=== PATIENT | male | born 1960 | race Caucasian/White ===

== ENCOUNTER 2017-01-27 10:47 | Emergency (ER) | payer OTHER ==
[2017-01-27 11:03] VITALS: BP 145/80; PULSE 90; TEMP 98.1; BMI 24.2
--- NOTE | 2017-01-27 11:52 | PDOC ---
History of Present Illness - General Chief Complaint: Injury Stated Complaint: FALL/ LT FOOT PAIN Time Seen by Provider: 01/27/17 11:45 History Source: Patient Exam Limitations: No Limitations - History of Present Illness Initial Comments: 01/27/17 12:01 Pt. is a 56 y/o male with pmh of HTN, seizure disorder, who presents to the ED c /o R ankle pain. Pt. states he was working on a ladder yesterday when the ladder slid. Pt. states he fell approximately 7 feet and landed on his right ankle. Denies head trauma, LOC, seizure activity. He states his ankle hurts the most when bearing weight. Denies numbness, tingling, weakness, fevers, chills, nausea, and vomiting. Past History - Travel Traveled outside of the country in the last 30 days: No Close contact w/someone who was outside of country & ill: No - Past Medical History Allergies/Adverse Reactions: Allergies Allergy/AdvReac Type Severity Reaction Status Date / Time No Known Allergies Allergy Verified 01/27/17 11:00 Home Medications: Ambulatory Orders NK [No Known Home Medication] 01/30/14 HTN: Yes Seizures: Yes - Surgical History Orthopedic Surgery: Yes (Back) - Immunization History Immunization Up to Date: Yes - Psycho/Social/Smoking Cessation Hx Anxiety: No Suicidal Ideation: No Smoking Status: Yes Smoking History: Never smoked Have you smoked in the past 12 months: Yes Number of Cigarettes Smoked Daily: 0 If you are a former smoker, when did you quit?: 10/2012 Information on smoking cessation initiated: No 'Breaking Loose' booklet given: 12/05/12 Hx Alcohol Use: No Drug/Substance Use Hx: No Substance Use Type: Alcohol Hx Substance Use Treatment: No Review of Systems - Review of Systems Constitutional: No: Chills, Fever, Malaise, Weakness HEENTM: No: Blurred Vision, Recent change in vision, Double Vision Musculoskeletal: Yes: Joint Pain (R ankle), Joint Swelling (R ankle). No: Back Pain, Muscle Pain, Muscle Weakness, Neck Pain Neurological: No: Paresthesia, Tingling, Weakness, Unsteady Gait *Physical Exam - Vital Signs Last Vital Signs Temp Pulse Resp BP Pulse Ox 98.1 F 90 16 145/80 99 01/27/17 11:00 01/27/17 11:00 01/27/17 11:00 01/27/17 11:00 01/27/17 11:00 - Physical Exam Comments: 01/27/17 12:06 GENERAL: [The patient is awake, alert, and fully oriented, in no acute distress. ] HEAD: [Normal with no signs of trauma.] EYES: [Pupils equal, round and reactive to light, extraocular movements intact, sclera anicteric, conjunctiva clear.] EXTREMITIES: [Normal range of motion, mild swelling over the R lateral malleolus. Denies TTP of the foot. (-) Zamora test.] NEUROLOGICAL: [Normal speech, normal gait.] PSYCH: [Normal mood, normal affect.] SKIN: [Warm, Dry, normal turgor, no rashes or lesions noted.] Medical Decision Making - Medical Decision Making 01/27/17 12:06 Patient is a 56-year-old male past medical history of HTN, seizures presents with right ankle pain after falling from a ladder. Denies head trauma loss of consciousness. Patient has mild pain with weightbearing. Most likely ankle sprain, however will rule out fracture at this time given the mechanism of fall. 1.Motrin 2.x-ray right ankle foot Reevaluate 01/27/17 13:01 Radiology report: Swelling over the lateral medial eye without evidence of gross fracture. Diagnosis most likely ankle sprain. We'll give Gabriele wrap told to elevate and ice the ankle may take Motrin as needed for pain. Given ortho follow-up. We will discharge home at this time with Gabriele wrap. *DC/Admit/Observation/Transfer Diagnosis at time of Disposition: Ankle sprain Qualifiers: Encounter type: initial encounter Involved ligament of ankle: unspecified ligament Laterality: right Qualified Code(s): S93.401A - Sprain of unspecified ligament of right ankle, initial encounter - Discharge Dispostion Disposition: HOME Condition at time of disposition: Good Admit: No - Referrals Referrals: Omar Curran MD [Primary Care Provider] - John Ayon MD [Staff Physician] - - Patient Instructions Printed Discharge Instructions: DI for Ankle Sprain Additional Instructions: You have an ankle sprain of your R ankle. You were given an GABRIELE wrap for comfort. Wear the wrap for the next week. Elevate your leg when sitting or laying down to prevent swelling. Ice the area 3-4 times a day for 20 minute intervals. Do not put the ice directly over the area. Take ibuprofen 600mg every 6 hours for pain and swelling. Take with food. Follow up with orthopedics on Tuesday if your symptoms are not getting better. Return to the ED if you have worsening pain, fevers ,chills, or any changes in your symptoms. - Post Discharge Activity Work/School Note: Back to Work
[2017-01-27] MEDS ORDERED: ACETAMINOPHEN 325 MG TABLET (FP) PO ONE (11:58)
[2017-01-27] MEDS ORDERED: ACETAMINOPHEN 325 MG TABLET (FP) ONE (11:59)
== END 2017-01-27 13:11 | disposition home or self-care (01) ==
LOC: JERFT 10:47
DX: S93.401A Sprain of unspecified ligament of right ankle, initial encounter (principal); W11.XXXA Fall on and from ladder, initial encounter; Y93.H3 Activity, building and construction; Y92.69 Other specified industrial and construction area as the place of occurrence of the external cause; Y99.0 Civilian activity done for income or pay; I10 Essential (primary) hypertension; Z86.69 Personal history of other diseases of the nervous system and sense organs
CPT/HCPCS: 73610-TC-RT; 73630-TC-RT; 99281-25

== ENCOUNTER 2020-01-24 09:26 | Inpatient (IN) | payer OTHER ==
[2020-01-24 09:38] VITALS: BMI 24.3
--- NOTE | 2020-01-24 09:43 | PDOC ---
History of Present Illness - General Chief Complaint: Weakness Stated Complaint: PAIN Time Seen by Provider: 01/24/20 09:42 - History of Present Illness Initial Comments: 59 YOM h/o alcohol abuse presents with weakness, fatigue, and dizziness of 2 weeks duration. Patient reports that his symptoms have worsened during the previous 2 weeks. Also endorses nausea, occasional vomiting, and persistent diarrhea during this time. He also mentions feeling SOB sometimes. Denies chest pain, fever, chills, or night sweats. Past History - Medical History Allergies/Adverse Reactions: Allergies Allergy/AdvReac Type Severity Reaction Status Date / Time No Known Allergies Allergy Verified 01/24/20 09:35 Home Medications: Ambulatory Orders NK [No Known Home Medication] 01/30/14 COPD: No HTN: Yes Seizures: Yes Other medical history: DENIES ANY HISTORY - Surgical History Orthopedic Surgery: Yes (Back) - Immunization History Immunization Up to Date: Yes - Psycho-Social/Smoking History Smoking Status: Yes Smoking History: Never smoked Have you smoked in the past 12 months: No Number of Cigarettes Smoked Daily: 0 If you are a former smoker, when did you quit?: 10/2012 Information on smoking cessation initiated: No 'Breaking Loose' booklet given: 12/05/12 - Substance Abuse Hx (Audit-C & DAST Scrn) How often the patient has a drink containing alcohol: 2-4 times / month Score: In Men: 4 or > Positive; In Women: 3 or > Positive: 2 Screen Result (Pos requires Nsg. Audit-10AR): Negative In the last yr the pt used illegal drug/Rx for NonMed reason: No Score: Yes response is considered Positive: 0 Screen Result (Positive result requires Nsg. DAST-10): Negative Review of Systems - Review of Systems Constitutional: Yes: See HPI HEENTM: Yes: See HPI Respiratory: Yes: See HPI Cardiac (ROS): Yes: See HPI ABD/GI: Yes: See HPI : Yes: See HPI Musculoskeletal: Yes: See HPI Integumentary: Yes: See HPI Neurological: Yes: See HPI Endocrine: Yes: See HPI Hematologic/Lymphatic: Yes: See HPI *Physical Exam - Vital Signs Last Vital Signs Temp Pulse Resp BP Pulse Ox 97.9 F 96 H 17 94/62 100 01/24/20 09:30 01/24/20 09:30 01/24/20 09:30 01/24/20 09:30 01/24/20 09:30 - Physical Exam General Appearance: Yes: Appropriately Dressed, Apparent Distress HEENT: positive: EOMI, Normal ENT Inspection, Normal Voice, Symmetrical, TMs Normal, Pharynx Normal, Scleral Icterus (R) Neck: positive: Trachea midline, Normal Thyroid Respiratory/Chest: positive: Lungs Clear, Normal Breath Sounds Cardiovascular: positive: Regular Rhythm, Regular Rate, S1, S2 Gastrointestinal/Abdominal: positive: Tender, Other (TTP in RUQ) 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 Patient reports that his symptoms have worsened during the previous 2 weeks. Also endorses nausea, occasional vomiting, and persistent diarrhea during this time. He also mentions feeling SOB sometimes. Denies chest pain, fever, chills, or night sweats. Vitals on arrival wnl. Physical exam reveals juandice of skin and scleral icterus + RUQ ttp. ddx: liver failure, hepatitis, pancreatitis, cholangitis plan: UA, STOOL FOR OCCULT BLOOD, CBC, CMP, CT abdomen, acetominophen and alcohol levels, folic acid, lactulose reassess: patient has Hgb 8.7, AST 161, K+ 3.3, bilirubin in 11s, CT shows fatty changes in liver + hepatomegaly, will admit patient for acute decompensated liver failure. dispo: admit to medicine 01/24/20 15:40 Discharge - Discharge Information Problems reviewed: Yes Clinical Impression/Diagnosis: Cirrhosis of liver Qualifiers: Hepatic cirrhosis type: alcoholic cirrhosis Ascites presence: unspecified Qualified Code(s): K70.30 - Alcoholic cirrhosis of liver without ascites - Follow up/Referral - Patient Discharge Instructions - Post Discharge Activity
--- NOTE | 2020-01-24 10:32 | PDOC ---
Documentation entered by Jose Antonio Yip SCRIBE, acting as scribe for Linda Navarrete MD. Linda Navarrete MD: This documentation has been prepared by the Phi cee Xhesika, SCRIBE, under my direction and personally reviewed by me in its entirety. I confirm that the documentation accurately reflects all work, treatment, procedures, and medical decision making performed by me. Attending Attestation - Resident Resident Name: Harsha Nicholson - ED Attending Attestation I have performed the following: I have examined & evaluated the patient, The case was reviewed & discussed with the resident, I agree w/resident's findings & plan, Exceptions are as noted - HPI HPI: 01/24/20 09:57 The patient is a 56y/o male with pmh of HTN, seizure disorder, and etoh abuse who presents to the ED for 2-3 weeks of generalized weakness, unsteady gait and headaches. Pt reports additional nausea, intermittent vomiting and diarrhea. Pt states he recently saw his doctor, had outpatient lab work but he does not know his results. Pt. also endorses mild RUQ pain. Pt denies any chest pain, SOB. Denies any URI symptoms. Allergies:NKDA PCP: Omar Culp - Physicial Exam PE: 01/24/20 10:28 General: non-toxic appearing HEENT: scleral icterus, no nystagmus Abdomen: distended, non-tender, +fluid wave, no rebound, no guarding Neuro: Aox3, moving all extremities,+mild asterixis Skin: +jaundice - Medical Decision Making 01/24/20 10:29 59 yo M here with concern for deccompensated alcoholic liver cirrhosis, pt reported mild RUQ abdominal pain but non-tender on exam, lower suspicion for SBP however as patient reports pain will cover with CTX. Also possible HCC. Plan: -labs -urine -cxr -CT a/p -CTX -admit This clinical encounter is taking place during a federal and state health care emergency attributable to the novel [place] Virus pandemic. The [place] of the Department of Health and Human Services has declared, pursuant to the Public Health Service Act 319F-3 (42 U.S.C. 247d-6d), that a covered persons activities related to medical countermeasures against COVID-19 will be immune from liability under Federal and State law. Discharge - Discharge Information Problems reviewed: Yes Clinical Impression/Diagnosis: Cirrhosis of liver Qualifiers: Hepatic cirrhosis type: alcoholic cirrhosis Ascites presence: unspecified Qualified Code(s): K70.30 - Alcoholic cirrhosis of liver without ascites - Follow up/Referral - Patient Discharge Instructions - Post Discharge Activity
[2020-01-24] MEDS ORDERED: CEFTRIAXONE 1 GM/50 ML BAG ONE (10:34)
[2020-01-24 10:41] LABS: BASO % 0.6 % (0-2.0); EOS % 0.9 % (0-4.5); HEMATOCRIT 25.3 % (35.4-49); HEMOGLOBIN 8.7 GM/dL (11.7-16.9); LYMPH % 13.5 % (8-40); MCH 37.5 pg (25.7-33.7); MCHC 34.3 g/dl (32.0-35.9); MEAN CELL VOLUME 109.3 fl (80-96); MEAN PLT VOLUME 7.4 fl (7.5-11.1); MONO % 9.9 % (3.8-10.2); NEUT % 75.1 % (42.8-82.8); PLATELET COUNT 199 K/MM3 (134-434); RBC 2.32 M/mm3 (4.00-5.60); RDW 14.7 % (11.9-15.9); WHITE BLOOD COUNT 11.1 K/mm3 (4.0-10.0)
[2020-01-24 10:49] LABS: INR 2.24 (0.83-1.09); PROTHROMBIN TIME (PATIENT) 26.7 SEC (9.7-13.0)
[2020-01-24 10:52] LABS: ACTIVATED PTT 44.3 SECONDS (25.2-36.5)
[2020-01-24] MEDS ORDERED: THIAMINE HCL 100 MG TABLET (FP) PO ONE (11:09)
[2020-01-24] MEDS ORDERED: FOLIC ACID 1 MG TABLET (FP) PO ONE (11:09)
[2020-01-24 11:21] LABS: ALBUMIN 1.2 g/dl (3.4-5.0); BILIRUBIN,TOTAL 11.3 mg/dL (0.2-1); CALCIUM 7.6 mg/dL (8.5-10.1); CREATININE 0.8 mg/dL (0.55-1.3); POTASSIUM 3.3 mmol/L (3.5-5.1)
[2020-01-24 11:22] LABS: ANISOCYTOSIS 2+; MACROCYTOSIS 2+; PLATELET ESTIMATE NORMAL
[2020-01-24] MEDS ORDERED: THIAMINE HCL 100 MG TABLET (FP) ONE (11:47)
[2020-01-24] MEDS ORDERED: FOLIC ACID 1 MG TABLET (FP) ONE (11:47)
[2020-01-24 11:56] LABS: BLOOD UREA NITROGEN 2.9 mg/dL (7-18)
--- NOTE | 2020-01-24 12:35 | EKG ---
Test Reason : Blood Pressure : / mmHG Vent. Rate : 085 BPM Atrial Rate : 085 BPM P-R Int : 186 ms QRS Dur : 096 ms QT Int : 396 ms P-R-T Axes : 068 021 032 degrees QTc Int : 471 ms NORMAL SINUS RHYTHM ABNORMAL ECG WHEN COMPARED WITH ECG OF 05-DEC-2012 11:33, ST NOW DEPRESSED IN ANTERIOR LEADS T WAVE INVERSION NOW EVIDENT IN ANTERIOR LEADS Confirmed by STEPHANIE YOON, CHARLES ([id number]) on 01/24/2020 12:35:08 PM Referred By: Confirmed By:CHARLES BROWN MD
[2020-01-24] MEDS ORDERED: PANTOPRAZOLE SODIUM 40 MG VIAL IVPUSH ONE (14:20)
[2020-01-24] MEDS ORDERED: LACTULOSE 20 GM/30 ML UDC (FOR ORAL USE ONLY) PO ONE (14:20)
[2020-01-24] MEDS ORDERED: LACTULOSE 20 GM/30 ML UDC (FOR ORAL USE ONLY) ONE (15:17)
[2020-01-24] MEDS ORDERED: KCL 10 MEQ IVPB 10 MEQ/100 ML INFUS.BAG IVPB ONE ×3 (15:17→19:51)
[2020-01-24] MEDS ORDERED: PANTOPRAZOLE SODIUM 40 MG/100 ML BAG IVPB ONE (15:17)
[2020-01-24] MEDS: KCL 10 MEQ IVPB 10 MEQ/100 ML INFUS.BAG IVPB SCH ×4 (15:54→23:19)
[2020-01-24] MEDS ORDERED: PHYTONADIONE 10 MG/1 ML AMP SQ ONE (17:57)
[2020-01-24] MEDS ORDERED: PHYTONADIONE 10 MG/1 ML AMP ONE (18:18)
--- NOTE | 2020-01-24 18:27 | HP ---
CHIEF COMPLAINT:weakness/ fatigue PCP:Dr Curran HISTORY OF PRESENT ILLNESS: 59 YOM h/o alcohol abuse, HTN, siezure (not on meds) presents with weakness, fatigue, and dizziness of 2 weeks duration. pateint states he has been having vomiting some fatigued and some nausea/diarrhea ; stats that he hasnt had much of an appetite as well - he has not followed up with a doctor in many years ; drinks around 2-4 drinsk per month (would not go into further detail) ER course was notable for: (1)afebrile; MAP 72 hr 92 on RA 100% (2)wbc 11.1 ; Hgb 8.7 NA 133 K 3.3 INR 2.24 PTT 44 Cr 0.8 ALT 161 Alk phos 319 ammonia 44 (3)ab pelvis CT no ascites hepatomegaly fatty infilration US ; no gall stones Recent Travel: denies PAST MEDICAL HISTORY: see above PAST SURGICAL HISTORY: Social History: Smoking:denies Alcohol:2-4 drinks per month (vodka) Drugs: denies Allergies No Known Allergies Allergy (Verified 01/24/20 09:35) HOME MEDICATIONS: Home Medications Medication Instructions Recorded NK [No Known Home Medication] 01/30/14 REVIEW OF SYSTEMS CONSTITUTIONAL: Present: malaise, loss of appetie Absent: fever, chills, diaphoresis, generalized weakness, malaise, loss of appetite, weight change HEENT: Absent: rhinorrhea, nasal congestion, throat pain, throat swelling, difficulty swallowing, mouth swelling, ear pain, eye pain, visual changes CARDIOVASCULAR: Absent: chest pain, syncope, palpitations, irregular heart rate, lightheadedness, peripheral edema RESPIRATORY: Absent: cough, shortness of breath, dyspnea with exertion, orthopnea, wheezing, stridor, hemoptysis GASTROINTESTINAL: present: abdominal pain Absent: abdominal pain, abdominal distension, nausea, vomiting, diarrhea, constipation, melena, hematochezia GENITOURINARY: Absent: dysuria, frequency, urgency, hesitancy, hematuria, flank pain, genital pain MUSCULOSKELETAL: Absent: myalgia, arthralgia, joint swelling, back pain, neck pain SKIN: Absent: rash, itching, pallor HEMATOLOGIC/IMMUNOLOGIC: Absent: easy bleeding, easy bruising, lymphadenopathy, frequent infections ENDOCRINE: Absent: unexplained weight gain, unexplained weight loss, heat intolerance, cold intolerance NEUROLOGIC: Absent: headache, focal weakness or paresthesias, dizziness, unsteady gait, seizure, mental status changes, bladder or bowel incontinence PSYCHIATRIC: Absent: anxiety, depression, suicidal or homicidal ideation, hallucinations. PHYSICAL EXAMINATION Vital Signs - 24 hr 01/24/20 01/24/20 09:30 14:27 Temperature 97.9 F Pulse Rate 96 H Respiratory 17 Rate Blood Pressure 94/62 O2 Sat by Pulse 100 98 Oximetry (%) GENERAL: Awake, alert, and fully oriented, in no acute distress.. EYES: PEERLA: EOMI no sclerla icteus NECK:no JVD no lymphadenpoathy LUNGS:CTA B.l no rales, rhonchi or wheezing HEART: Regular rate and rhythm, normal S1 and S2 without murmur, rub or gallop. ABDOMEN: Soft, distended; tympanic upon percussions MUSCULOSKELETAL: Normal range of motion at all joints. No bony deformities or tenderness. No CVA tenderness. EXTREMITIES ; wamr; well-perfysed no clubbing/cyanosis or edema NEUROLOGICAL: Cranial nerves II-XII intact. Normal speech. Normal gait. PSYCHIATRIC: Cooperative. Good eye contact. Appropriate mood and affect. SKIN: Warm, dry, normal turgor, no rashes or lesions noted, normal capillary refill. Laboratory Results - last 24 hr 01/24/20 01/24/20 01/24/20 10:00 10:00 10:00 WBC 11.1 H RBC 2.32 L Hgb 8.7 L Hct 25.3 L D MCV 109.3 H MCH 37.5 H D MCHC 34.3 RDW 14.7 D Plt Count 199 D MPV 7.4 L Absolute Neuts (auto) 8.3 H Neutrophils % 75.1 Lymphocytes % 13.5 Monocytes % 9.9 Eosinophils % 0.9 D Basophils % 0.6 Nucleated RBC % 0 Hypochromia 0 Platelet Estimate Normal Polychromasia 0 Poikilocytosis 0 Anisocytosis 2+ Microcytosis 0 Macrocytosis 2+ PT with INR 26.70 H INR 2.24 H PTT (Actin FS) 44.3 H Sodium 133 L Potassium 3.3 L Chloride 97 L Carbon Dioxide 28 Anion Gap 9 BUN 2.9 L* Creatinine 0.8 Est GFR (CKD-EPI)AfAm 114.93 Est GFR (CKD-EPI)NonAf 99.16 Random Glucose 93 Calcium 7.6 L Total Bilirubin 11.3 H AST 161 H ALT 34 Alkaline Phosphatase 319 H Ammonia Creatine Kinase Troponin I Total Protein 10.0 H Albumin 1.2 L Lipase 101 Blood Type Antibody Screen 01/24/20 01/24/20 01/24/20 10:00 10:00 10:00 WBC RBC Hgb Hct MCV MCH MCHC RDW Plt Count MPV Absolute Neuts (auto) Neutrophils % Lymphocytes % Monocytes % Eosinophils % Basophils % Nucleated RBC % Hypochromia Platelet Estimate Polychromasia Poikilocytosis Anisocytosis Microcytosis Macrocytosis PT with INR INR PTT (Actin FS) Sodium Potassium Chloride Carbon Dioxide Anion Gap BUN Creatinine Est GFR (CKD-EPI)AfAm Est GFR (CKD-EPI)NonAf Random Glucose Calcium Total Bilirubin AST ALT Alkaline Phosphatase Ammonia 40.70 H Creatine Kinase 26 Troponin I < 0.02 Total Protein Albumin Lipase Blood Type A POSITIVE Antibody Screen Negative ASSESSMENT/PLAN: 59 YOM h/o alcohol abuse, HTN, siezure (not on meds) presents with weakness, fatigue, and dizziness of 2 weeks duration. pateint states he has been having vomiting some fatigued and some nausea/diarrhea found to be in decompensated liver failure #Decompensated liver failure MELD score 28; MDF 71 -reieced cefrtriaxone for SBP ppx -imaging noted -moniotr LFTS -no asictes seen -given patients critical condition [facility] followed by hepatology service #HTN currently normotensive not on meds Family Medical History Family History: Denies Problem List - Problem (1) Cirrhosis of liver Code(s): K74.60 - UNSPECIFIED CIRRHOSIS OF LIVER Qualifiers: Hepatic cirrhosis type: alcoholic cirrhosis Ascites presence: unspecified Qualified Code(s): K70.30 - Alcoholic cirrhosis of liver without ascites Visit type - Emergency Visit Emergency Visit: Yes ED Registration Date: 01/24/20 Care time: The patient presented to the Emergency Department on the above date and was hospitalized for further evaluation of their emergent condition. - New Patient This patient is new to me today: Yes Date on this admission: 01/24/20 - Critical Care Critical Care patient: No ATTENDING PHYSICIAN STATEMENT I saw and evaluated the patient. I reviewed the resident's note and discussed the case with the resident. I agree with the resident's findings and plan as documented. SUBJECTIVE: OBJECTIVE: ASSESSMENT AND PLAN:
--- NOTE | 2020-01-24 18:34 | DS ---
Physical Exam: SUBJECTIVE: Patient seen and examined OBJECTIVE: Vital Signs Period Temp Pulse Resp BP Sys/Franco Pulse Ox Last 24 Hr 97.9 F 96 17 94/62 98-100 PHYSICAL EXAM GENERAL: The patient is awake, alert, and fully oriented, in no acute distress. HEAD: Normal with no signs of trauma. EYES: PERRL, extraocular movements intact, sclera anicteric, conjunctiva clear. ENT: Ears normal, nares patent, oropharynx clear without exudates, moist mucous membranes. NECK: Trachea midline, full range of motion, supple. LUNGS: Breath sounds equal, clear to auscultation bilaterally, no wheezes, no crackles, no accessory muscle use. HEART: Regular rate and rhythm, S1, S2 without murmur, rub or gallop. ABDOMEN: Soft, nontender, nondistended, normoactive bowel sounds, no guarding, no rebound, no hepatosplenomegaly, no masses. EXTREMITIES: 2+ pulses, warm, well-perfused, no edema. NEUROLOGICAL: Cranial nerves II through XII grossly intact. Normal speech, gait not observed. PSYCH: Normal mood, normal affect. SKIN: Warm, dry, normal turgor, no rashes or lesions noted. LABS Laboratory Results - last 24 hr 01/24/20 01/24/20 01/24/20 10:00 10:00 10:00 WBC 11.1 H RBC 2.32 L Hgb 8.7 L Hct 25.3 L D MCV 109.3 H MCH 37.5 H D MCHC 34.3 RDW 14.7 D Plt Count 199 D MPV 7.4 L Absolute Neuts (auto) 8.3 H Neutrophils % 75.1 Lymphocytes % 13.5 Monocytes % 9.9 Eosinophils % 0.9 D Basophils % 0.6 Nucleated RBC % 0 Hypochromia 0 Platelet Estimate Normal Polychromasia 0 Poikilocytosis 0 Anisocytosis 2+ Microcytosis 0 Macrocytosis 2+ PT with INR 26.70 H INR 2.24 H PTT (Actin FS) 44.3 H Sodium 133 L Potassium 3.3 L Chloride 97 L Carbon Dioxide 28 Anion Gap 9 BUN 2.9 L* Creatinine 0.8 Est GFR (CKD-EPI)AfAm 114.93 Est GFR (CKD-EPI)NonAf 99.16 Random Glucose 93 Calcium 7.6 L Total Bilirubin 11.3 H AST 161 H ALT 34 Alkaline Phosphatase 319 H Ammonia Creatine Kinase Troponin I Total Protein 10.0 H Albumin 1.2 L Lipase 101 Blood Type Antibody Screen 01/24/20 01/24/20 01/24/20 10:00 10:00 10:00 WBC RBC Hgb Hct MCV MCH MCHC RDW Plt Count MPV Absolute Neuts (auto) Neutrophils % Lymphocytes % Monocytes % Eosinophils % Basophils % Nucleated RBC % Hypochromia Platelet Estimate Polychromasia Poikilocytosis Anisocytosis Microcytosis Macrocytosis PT with INR INR PTT (Actin FS) Sodium Potassium Chloride Carbon Dioxide Anion Gap BUN Creatinine Est GFR (CKD-EPI)AfAm Est GFR (CKD-EPI)NonAf Random Glucose Calcium Total Bilirubin AST ALT Alkaline Phosphatase Ammonia 40.70 H Creatine Kinase 26 Troponin I < 0.02 Total Protein Albumin Lipase Blood Type A POSITIVE Antibody Screen Negative ab pelvis CT no ascites hepatomegaly fatty infilration US ; no gall stones; fatty liver HOSPITAL COURSE: Date of Admission:01/24/20 59 YOM h/o alcohol abuse, HTN, siezure (not on meds) presents with weakness, fatigue, and dizziness of 2 weeks duration. pateint states he has been having vomiting some fatigued and some nausea/diarrhea found to be in decompensated liver failure #Decompensated liver failure MELD score 28; MDF 71 -reieced cefrtriaxone for SBP ppx -imaging noted -moniotr LFTS -no asictes seen -given patients critical condition to be transferred to [facility] to be followed by hepatology service #HTN currently normotensive not on meds Date of Discharge: 01/24/20 Minutes to complete discharge: 35 Discharge Summary Problems reviewed: Yes Reason For Visit: LIVER FAILURE Current Active Problems Cirrhosis of liver (Acute) - Instructions Referrals: Omar Curran MD [Primary Care Provider] - - Home Medications Comprehensive Discharge Medication List: Ambulatory Orders NK [No Known Home Medication] 01/30/14 Problem List - Problems (1) Cirrhosis of liver Code(s): K74.60 - UNSPECIFIED CIRRHOSIS OF LIVER Qualifiers: Hepatic cirrhosis type: alcoholic cirrhosis Ascites presence: unspecified Qualified Code(s): K70.30 - Alcoholic cirrhosis of liver without ascites This patient is new to me today: Yes Date on this admission: 01/24/20 Emergency Visit: Yes ED Registration Date: 01/24/20 Care time: The patient presented to the Emergency Department on the above date and was hospitalized for further evaluation of their emergent condition. Critical Care patient: No - Discharge Referral Referred to [facility] No ATTENDING PHYSICIAN STATEMENT I saw and evaluated the patient. I reviewed the resident's note and discussed the case with the resident. I agree with the resident's findings and plan as documented. SUBJECTIVE: OBJECTIVE: ASSESSMENT AND PLAN:
--- NOTE | 2020-01-24 19:13 | CON.GI ---
Consult Consult Specialty:: GI Referred by:: Hospitalist Service Reason for Consultation:: Abnormal liver chemistries - History of Present Illness Chief Complaint: "I was dizzy" History of Present Illness: 59M who is a poor historian. States that he was admnitted because he has been dizzy over the last couple of weeks. Labs revealed a macrocytic anemia, bilirubin of 10, INR of 2.24. Admits to drinking 2 beers and 2 glasses of wine daily and a 6 pack + of beer per day on the weekends. He has been drinking like this for quite some time. CT scan revealed fatty liver. US revealed fatty liver, hepatomegaly nod non dilated biliary tract. he denies OTC medication use or herbal supplements. He denies IVDU. No h/o IVDU. No family h/o liver disease. No known exposures to viral hepatitides. - History Source History Provided By: Patient, Medical Record Limitations to Obtaining History: Poor Historian - Past Medical History Additional Medical History: Denies - Past Surgical History Additional Surgical History: Denies - Alcohol/Substance Use Hx Alcohol Use: No History of Substance Use: reports: None - Smoking History Smoking history: Never smoked Have you smoked in the past 12 months: No Aproximately how many cigarettes per day: 0 If you are a former smoker, when did you quit?: 10/2012 - Social History Usual Living Arrangement: Alone ADL: Independent History of Recent Travel: No Home Medications - Allergies Allergies/Adverse Reactions: Allergies Allergy/AdvReac Type Severity Reaction Status Date / Time No Known Allergies Allergy Verified 01/24/20 09:35 - Home Medications Home Medications: Ambulatory Orders NK [No Known Home Medication] 01/30/14 Family Medical History Other Family History: Father: : "Cancer". Mother: : s/p fall @ . No family history of colon cancer, liver disease. 1 daughter, healthy Review of Systems - Review of Systems Constitutional: reports: Malaise. denies: Chills Cardiovascular: denies: Chest Pain Respiratory: reports: SOB Gastrointestinal: reports: Bloating. denies: Abdominal Pain, Diarrhea, Indigestion, Nausea, Rectal Bleeding, Vomiting, Vomiting Blood Physical Exam-GI Vital Signs: Vital Signs Temperature 97.9 F 01/24/20 18:41 Pulse Rate 97 H 01/24/20 18:41 Respiratory Rate 18 01/24/20 18:41 Blood Pressure 98/68 01/24/20 18:41 O2 Sat by Pulse Oximetry (%) 96 01/24/20 18:41 Constitutional: Yes: Calm Eyes: Yes: Sclera Icterus HENT: Yes: Other (spider angiomata bilateral cheeks) Neck: Yes: Supple Cardiovascular: Yes: Regular Rate and Rhythm. No: Murmur Respiratory: Yes: CTA Bilaterally Gastrointestinal Inspection: No: Distention ...Auscultate: Yes: Normoactive Bowel Sounds ...Palpate: Yes: Hepatomegaly, Soft. No: Tenderness ...Percussion: No: Tympanitic Extremities: Yes: Other (+ clubbing of fingers b/l) Edema: No (No LE edema) Neurological: Yes: Alert, Oriented. No: Asterixis Labs: CBC, BMP 01/24/20 10:00 01/24/20 10:00 INR, PTT INR 2.24 (0.83-1.09) H 01/24/20 10:00 Hepatic Panel Total Bilirubin 11.3 mg/dL (0.2-1) H 01/24/20 10:00 AST 161 U/L (15-37) H 01/24/20 10:00 ALT 34 U/L (13-61) 01/24/20 10:00 Alkaline Phosphatase 319 U/L (45-117) H 01/24/20 10:00 Albumin 1.2 g/dl (3.4-5.0) L 01/24/20 10:00 Imaging - Results Cat Scan: Report Reviewed, Image Reviewed Ultrasound: Report Reviewed Problem List - Problems (1) Alcoholic hepatitis without ascites Assessment/Plan: +/- underlying cirrhosis High Hepatitis Discriminant Funtion Check hepatitis A/B/C serologies Avoid hepatotoxic agents If no improvement, may benefit from initiation of prednisolone therapy Advised the need for complete alcohol cessation Medical attending has requested a transfer to a liver center ([facility]). Further work -up and treatment will be performed there Code(s): K70.10 - ALCOHOLIC HEPATITIS WITHOUT ASCITES
--- NOTE | 2020-01-24 23:28 | PN ---
Teaching Attending Note Name of Resident: Marlys La ATTENDING PHYSICIAN STATEMENT I saw and evaluated the patient. I reviewed the resident's note and discussed the case with the resident. I agree with the resident's findings and plan as documented. SUBJECTIVE: Patient seen and examined at bedside, endorses several years lost to follow up w/ PCP, h/o Etoh abuse with newly found liver cirrhosis and liver failure requiring transfer to tertiary care center for further management of acute liver failure. OBJECTIVE: GA AAOx2, intermittingly confused, cachectic HEENT scleral icterus present, nystagmus present, neck supple, dry MM, tongue tremors+ Chest poor inspiratory effort, decreased BS at bases CVS s1, S2+, RRR ABd mildly distended, no appreciable fluid wave/shifting dullness, Spider angiomata present Ext no LE edema, no calf tenderness Vital Signs (72 hours) 01/24/20 01/24/20 01/24/20 09:30 14:27 18:41 Temperature 97.9 F 97.9 F Pulse Rate 96 H 97 H Respiratory 17 18 Rate Blood Pressure 94/62 98/68 O2 Sat by Pulse 100 98 96 Oximetry (%) Laboratory Results - last 24 hr 01/24/20 01/24/20 01/24/20 10:00 10:00 10:00 WBC 11.1 H RBC 2.32 L Hgb 8.7 L Hct 25.3 L D MCV 109.3 H MCH 37.5 H D MCHC 34.3 RDW 14.7 D Plt Count 199 D MPV 7.4 L Absolute Neuts (auto) 8.3 H Neutrophils % 75.1 Lymphocytes % 13.5 Monocytes % 9.9 Eosinophils % 0.9 D Basophils % 0.6 Nucleated RBC % 0 Hypochromia 0 Platelet Estimate Normal Polychromasia 0 Poikilocytosis 0 Anisocytosis 2+ Microcytosis 0 Macrocytosis 2+ PT with INR 26.70 H INR 2.24 H PTT (Actin FS) 44.3 H Sodium 133 L Potassium 3.3 L Chloride 97 L Carbon Dioxide 28 Anion Gap 9 BUN 2.9 L* Creatinine 0.8 Est GFR (CKD-EPI)AfAm 114.93 Est GFR (CKD-EPI)NonAf 99.16 Random Glucose 93 Calcium 7.6 L Total Bilirubin 11.3 H AST 161 H ALT 34 Alkaline Phosphatase 319 H Ammonia Creatine Kinase Troponin I Total Protein 10.0 H Albumin 1.2 L Lipase 101 Blood Type Antibody Screen 01/24/20 01/24/20 01/24/20 10:00 10:00 10:00 WBC RBC Hgb Hct MCV MCH MCHC RDW Plt Count MPV Absolute Neuts (auto) Neutrophils % Lymphocytes % Monocytes % Eosinophils % Basophils % Nucleated RBC % Hypochromia Platelet Estimate Polychromasia Poikilocytosis Anisocytosis Microcytosis Macrocytosis PT with INR INR PTT (Actin FS) Sodium Potassium Chloride Carbon Dioxide Anion Gap BUN Creatinine Est GFR (CKD-EPI)AfAm Est GFR (CKD-EPI)NonAf Random Glucose Calcium Total Bilirubin AST ALT Alkaline Phosphatase Ammonia 40.70 H Creatine Kinase 26 Troponin I < 0.02 Total Protein Albumin Lipase Blood Type A POSITIVE Antibody Screen Negative Home Medications Medication Instructions Recorded NK [No Known Home Medication] 01/30/14 Current Medications Generic Name Dose Route Start Last Admin Trade Name Freq PRN Reason Stop Dose Admin Thiamine HCl 200 mg 01/25/20 10:00 Vitamin B1 - PO DAILY GUERDA ASSESSMENT AND PLAN: 59 M Decompensated liver failure H/o etoh abuse Transaminitis Hyperammonia AMS Deconditioned Macrocytic anemia PLan: Thaimine/FA/B12 Trend LFTs/coags Supplement PPI Lactulose 1-2 doses either PO/IL for encephalopathy Supplement KCl 10meq 3-4 bags GI recommending transfer to tertiary care center
[2020-01-25 06:35] LABS: COCAINE, UR NEGATIVE ng/ml (CUTOFF=300); OPIATES, URI NEGATIVE ng/ml (CUTOFF=300); PHENCYCLIDINE,URINE NEGATIVE ng/ml (CUTOFF=25); URINE BARBITURATES NEGATIVE ng/ml (CUTOFF=200)
[2020-01-25 06:38] LABS: METHADONE, UR NEGATIVE ng/ml (CUTOFF=300); URINE AMPHETAMINES NEGATIVE ng/ml (CUTOFF=500); URINE BENZODIAZEPINES NEGATIVE ng/ml (CUTOFF=200)
[2020-01-25 07:13] LABS: EPI CELLS 3 /uL (0-25.1); HYALINE CASTS 1 /uL (0-3.1); URINE APPEARANCE CLOUDY; URINE BILIRUBIN 3+ (NEGATIVE); URINE COLOR DK YELLOW; URINE GLUCOSE (UA) NEGATIVE (NEGATIVE); URINE KETONE TRACE (NEGATIVE); URINE LEUK ESTERASE TRACE (NEGATIVE); URINE NITRITE POSITIVE (NEGATIVE); URINE PROTEIN TRACE (NEGATIVE); URINE RBC 19 /uL (0-23.9); URINE WBC 8 /uL (0-25.8)
[2020-01-25 07:25] LABS: URINE BACTERIA 315 /uL (0-1359); URINE CRYSTALS NON SEEN /hpf
--- NOTE | 2020-01-25 07:31 | PN ---
Physical Exam: SUBJECTIVE: Patient seen and examined on stretcher in ED. Last drink 5 days ago. Denies feeling anxious, sweats, chills. Has had buttock abscesses for years, they drain on their own, has not sought medical care for several years due to no insurance. OBJECTIVE: Vital Signs Period Temp Pulse Resp BP Sys/Franco Pulse Ox Last 24 Hr 97.9 F-98.1 F 94-97 16-18 94-104/59-68 95-100 GENERAL: The patient is awake, alert, and fully oriented, in no acute distress. HEAD: Normal with no signs of trauma. EYES: Icteric sclera SKIN: Jaundiced LUNGS: Breath sounds equal, clear to auscultation HEART: Regular rate and rhythm, S1, S2 ABDOMEN: Distended, tympanic, +guarding RUQ EXTREMITIES: 2+ pulses, warm, well-perfused, no edema. NEUROLOGICAL: Cranial nerves II through XII grossly intact. Normal speech, gait not observed. BUTTOCKS: multiple lesions that appear to be healed abscesses in various stages; multiple fistulas, one with serosanguinous drainage, no pus Laboratory Results - last 24 hr 01/24/20 01/24/20 01/24/20 10:00 10:00 10:00 WBC 11.1 H RBC 2.32 L Hgb 8.7 L Hct 25.3 L D MCV 109.3 H MCH 37.5 H D MCHC 34.3 RDW 14.7 D Plt Count 199 D MPV 7.4 L Absolute Neuts (auto) 8.3 H Neutrophils % 75.1 Lymphocytes % 13.5 Monocytes % 9.9 Eosinophils % 0.9 D Basophils % 0.6 Nucleated RBC % 0 Hypochromia 0 Platelet Estimate Normal Polychromasia 0 Poikilocytosis 0 Anisocytosis 2+ Microcytosis 0 Macrocytosis 2+ PT with INR 26.70 H INR 2.24 H PTT (Actin FS) 44.3 H Sodium 133 L Potassium 3.3 L Chloride 97 L Carbon Dioxide 28 Anion Gap 9 BUN 2.9 L* Creatinine 0.8 Est GFR (CKD-EPI)AfAm 114.93 Est GFR (CKD-EPI)NonAf 99.16 Random Glucose 93 Calcium 7.6 L Total Bilirubin 11.3 H AST 161 H ALT 34 Alkaline Phosphatase 319 H Ammonia Creatine Kinase Troponin I Total Protein 10.0 H Albumin 1.2 L Lipase 101 Vitamin B12 Serum Folate Urine Color Urine Appearance Urine pH Ur Specific Eads Urine Protein Urine Glucose (UA) Urine Ketones Urine Blood Urine Nitrite Urine Bilirubin Urine Urobilinogen Ur Leukocyte Esterase Urine WBC (Auto) Urine RBC (Auto) Urine Casts (Auto) U Epithel Cells (Auto) Urine Crystals (Auto) Urine Bacteria (Auto) Opiates Screen Methadone Screen Acetaminophen Barbiturate Screen Phencyclidine Screen Ur Amphetamines Screen MDMA (Ecstasy) Screen Benzodiazepines Screen Cocaine Screen U Marijuana (THC) Screen Blood Type Antibody Screen 01/24/20 01/24/20 01/24/20 10:00 10:00 10:00 WBC RBC Hgb Hct MCV MCH MCHC RDW Plt Count MPV Absolute Neuts (auto) Neutrophils % Lymphocytes % Monocytes % Eosinophils % Basophils % Nucleated RBC % Hypochromia Platelet Estimate Polychromasia Poikilocytosis Anisocytosis Microcytosis Macrocytosis PT with INR INR PTT (Actin FS) Sodium Potassium Chloride Carbon Dioxide Anion Gap BUN Creatinine Est GFR (CKD-EPI)AfAm Est GFR (CKD-EPI)NonAf Random Glucose Calcium Total Bilirubin AST ALT Alkaline Phosphatase Ammonia 40.70 H Creatine Kinase 26 Troponin I < 0.02 Total Protein Albumin Lipase Vitamin B12 4208 H Serum Folate 5 Urine Color Urine Appearance Urine pH Ur Specific Eads Urine Protein Urine Glucose (UA) Urine Ketones Urine Blood Urine Nitrite Urine Bilirubin Urine Urobilinogen Ur Leukocyte Esterase Urine WBC (Auto) Urine RBC (Auto) Urine Casts (Auto) U Epithel Cells (Auto) Urine Crystals (Auto) Urine Bacteria (Auto) Opiates Screen Methadone Screen Acetaminophen Barbiturate Screen Phencyclidine Screen Ur Amphetamines Screen MDMA (Ecstasy) Screen Benzodiazepines Screen Cocaine Screen U Marijuana (THC) Screen Blood Type A POSITIVE Antibody Screen Negative 01/24/20 01/25/20 01/25/20 10:15 05:00 05:00 WBC RBC Hgb Hct MCV MCH MCHC RDW Plt Count MPV Absolute Neuts (auto) Neutrophils % Lymphocytes % Monocytes % Eosinophils % Basophils % Nucleated RBC % Hypochromia Platelet Estimate Polychromasia Poikilocytosis Anisocytosis Microcytosis Macrocytosis PT with INR INR PTT (Actin FS) Sodium Potassium Chloride Carbon Dioxide Anion Gap BUN Creatinine Est GFR (CKD-EPI)AfAm Est GFR (CKD-EPI)NonAf Random Glucose Calcium Total Bilirubin AST ALT Alkaline Phosphatase Ammonia Creatine Kinase Troponin I Total Protein Albumin Lipase Vitamin B12 Serum Folate Urine Color Dk yellow Urine Appearance Cloudy Urine pH 7.0 Ur Specific Eads 1.037 H Urine Protein Trace Urine Glucose (UA) Negative Urine Ketones Trace H Urine Blood Negative Urine Nitrite Positive H Urine Bilirubin 3+ H Urine Urobilinogen 2.0 Ur Leukocyte Esterase Trace Urine WBC (Auto) 8 Urine RBC (Auto) 19 Urine Casts (Auto) 1 U Epithel Cells (Auto) 3 Urine Crystals (Auto) Non seen Urine Bacteria (Auto) 315 Opiates Screen Negative Methadone Screen Negative Acetaminophen < 2.0 Barbiturate Screen Negative Phencyclidine Screen Negative Ur Amphetamines Screen Negative MDMA (Ecstasy) Screen Negative Benzodiazepines Screen Negative Cocaine Screen Negative U Marijuana (THC) Screen Negative Blood Type Antibody Screen Active Medications Generic Name Dose Route Start Last Admin Trade Name Freq PRN Reason Stop Dose Admin Thiamine HCl 200 mg 01/25/20 10:00 Vitamin B1 - PO DAILY GUERDA Assessment & Plan 59 year-old male with a PMH significant for HTN, ETOH abuse, and seizure disorder not on meds, admitted for decompensated liver injury. Decompensated liver injury --baseline liver function unknown, has not sought care in several years --MELD score 28; MDF 71 --has NOT been accepted to [facility] for transfer to hepatobiliary service; per Dr. Turner, Metal Finish Inspector, still under advisement; last spoke with him Tuesday afternoon, he was going to consult with Dr. Romero, head of service; need to call transfer center on Tuesday and speak with Dr. Turner or is surrogate --seen and evaluated by GI Dr. Bañuelos: start lactulose Chronic alcohol abuse --no signs of withdrawal at present --PRN ativan Buttock abscesses --Vanc x 1g --ID consult --CT pelvis pending --depending on results of CT, surgical consult Visit type - Emergency Visit Emergency Visit: Yes ED Registration Date: 01/24/20 Care time: The patient presented to the Emergency Department on the above date and was hospitalized for further evaluation of their emergent condition. - New Patient This patient is new to me today: Yes Date on this admission: 01/26/20 - Critical Care Critical Care patient: Yes Total Critical Care Time (in minutes): 60 Critical Care Statement: The care of this patient involved high complexity decision making to prevent further life threatening deterioration of the patient's condition and/or to evaluate & treat vital organ system(s) failure or risk of failure.
[2020-01-25 08:31] LABS: INR 2.57 (0.83-1.09); PROTHROMBIN TIME (PATIENT) 30.6 SEC (9.7-13.0)
[2020-01-25 09:35] LABS: BILIRUBIN,DIRECT 8.3 mg/dL (0.0-0.2); BILIRUBIN,TOTAL 10.4 mg/dL (0.2-1); BLOOD UREA NITROGEN 3.2 mg/dL (7-18); CALCIUM 7.5 mg/dL (8.5-10.1); CREATININE 0.8 mg/dL (0.55-1.3); MAGNESIUM 2.1 mg/dL (1.8-2.4); PHOSPHOROUS 2.3 mg/dL (2.5-4.9); POTASSIUM 3.5 mmol/L (3.5-5.1); TOT PROT 8.4 g/dl (6.4-8.2)
[2020-01-25 09:53] LABS: BASO % 0.9 % (0-2.0); EOS % 0.6 % (0-4.5); HEMATOCRIT 22.4 % (35.4-49); HEMOGLOBIN 7.7 GM/dL (11.7-16.9); LYMPH % 9.9 % (8-40); MCHC 34.1 g/dl (32.0-35.9); MEAN CELL VOLUME 108.4 fl (80-96); MEAN PLT VOLUME 7.2 fl (7.5-11.1); MONO % 9.6 % (3.8-10.2); PLATELET COUNT 170 K/MM3 (134-434); RBC 2.07 M/mm3 (4.00-5.60); RDW 14.6 % (11.9-15.9); WHITE BLOOD COUNT 10.1 K/mm3 (4.0-10.0)
[2020-01-25] MEDS ORDERED: THIAMINE HCL 100 MG TABLET (FP) ONE (10:08)
[2020-01-25] MEDS: THIAMINE HCL 100 MG TABLET (FP) PO SCH (10:17)
--- NOTE | 2020-01-25 12:46 | PN.GI ---
GI Progress Note Subjective: Awake, tremulous Nursing aid reported blood stains on sheet - Objective Vital Signs: Vital Signs Temperature 98 F 01/25/20 07:10 Pulse Rate 98 H 01/25/20 07:10 Respiratory Rate 17 01/25/20 07:10 Blood Pressure 101/66 01/25/20 07:10 O2 Sat by Pulse Oximetry (%) 97 01/25/20 07:10 Constitutional: Calm Eyes: Yes: Sclera Icterus Cardiovascular: Yes: Tachycardia Respiratory: Yes: CTA Bilaterally, Other ...Auscultate: Yes: Normoactive Bowel Sounds ...Palpate: Yes: Hepatomegaly, Other (TTP RUQ) ...Rectal Exam: Yes: Other (Multiple excoriations, induration of buttock bilate rally. Question of fistulous opening. Some irritated. No external perianal lesions, light yellow stool in rectal vault, no blood or melena.) Neurological: Yes: Alert, Oriented (x 3), Tremors, Other (No asterixis) Labs: CBC, BMP 01/25/20 09:30 01/25/20 07:43 INR, PTT INR 2.57 (0.83-1.09) H 01/25/20 08:14 Hepatic Panel Total Bilirubin 10.4 mg/dL (0.2-1) H 01/25/20 07:43 Direct Bilirubin 8.3 mg/dL (0.0-0.2) H 01/25/20 07:43 AST 141 U/L (15-37) H 01/25/20 07:43 ALT 29 U/L (13-61) 01/25/20 07:43 Alkaline Phosphatase 246 U/L (45-117) H 01/25/20 07:43 Albumin 1.0 g/dl (3.4-5.0) L 01/25/20 07:43 Problem List - Problems (1) Alcoholic hepatitis without ascites Assessment/Plan: Some improvement in liver chemistries, worsening coloagulopathy Likely progressing to alcohol withdrawal Prior to initiating Prednisolone therapy, advised LICENSED AUDIOLOGIST to have bilateral buttock findings evaluated by surgery. ? source of infection Added lactulose 20g TID Fall precautions Treatment of alcohol withdrawal D/W LICENSED AUDIOLOGIST [place] Code(s): K70.10 - ALCOHOLIC HEPATITIS WITHOUT ASCITES
[2020-01-25] MEDS ORDERED: VANCOMYCIN 1 GM in D5W (PRE-DOCKED) 1,000 MG/250 ML IVPB ONE (15:21)
[2020-01-25] MEDS: LACTULOSE 20 GM/30 ML UDC (FOR ORAL USE ONLY) PO SCH ×2 (17:18→23:19)
[2020-01-25] MEDS ORDERED: LORazepam 2 MG/ML SDV VIAL IVPUSH PRN (18:42)
[2020-01-25] MEDS ORDERED: PNEUMOC 13-VAL CONJ-DIP CRM/PF 0.5 ML DISP.SYRIN IM ONE (19:23)
[2020-01-25] MEDS ORDERED: PNEUMOCOCCAL 23 VACCINE 0.5 ML VIAL IM ONE (19:30)
[2020-01-26] MEDS: LACTULOSE 20 GM/30 ML UDC (FOR ORAL USE ONLY) PO SCH ×3 (06:40→22:03)
--- NOTE | 2020-01-26 09:26 | PN ---
Progress Note, Physician Chief Complaint: doing well , no new c/o. - Current Medication List Current Medications: Active Medications Folic Acid (Folic Acid -) 1 mg PO DAILY [facility] Lactulose (Cephulac (Oral Use)) 20 gm PO TID [facility] Last Admin: 01/26/20 06:40 Dose: 20 gm Documented by: Lorazepam (Ativan Injection -) 1 mg IVPUSH Q6H PRN PRN Reason: ANXIETY Thiamine HCl (Vitamin B1 -) 200 mg PO DAILY [facility] Last Admin: 01/25/20 10:17 Dose: 200 mg Documented by: - Objective Vital Signs: Vital Signs Temperature 98 F 01/25/20 22:00 Pulse Rate 95 H 01/25/20 22:00 Respiratory Rate 18 01/25/20 22:00 Blood Pressure 98/64 01/25/20 22:00 O2 Sat by Pulse Oximetry (%) 95 01/25/20 22:00 Constitutional: Yes: Well Nourished, No Distress Eyes: Yes: Conjunctiva Clear, EOM Intact HENT: Yes: Atraumatic, Normocephalic Neck: Yes: Supple, Trachea Midline Cardiovascular: Yes: Regular Rate and Rhythm Respiratory: Yes: Regular, CTA Bilaterally Gastrointestinal: Yes: Normal Bowel Sounds, Soft, Other (Multiple excoriations, induration of buttock bilaterally. No external perianal lesions,) Labs: CBC, BMP 01/25/20 09:30 01/25/20 07:43 INR, PTT INR 2.57 (0.83-1.09) H 01/25/20 08:14 Impression/Plan Impression/Plan: 59 year-old male with a PMH significant for HTN, ETOH abuse, and seizure disorder not on meds, admitted for decompensated liver injury. Decompensated liver injury --MELD score 28; MDF 71 case worhers working on transferring the pt to hepatobillary service, not accepted yet, --seen and evaluated by GI start lactulose, tolertaing, Chronic alcohol abuse --no signs of withdrawal at present --PRN ativan Buttock abscesses --Vanc x 1g --ID consult --CT pelvis shows thickening of the buttocks, no fluid collection, --surgical consult callled for evaluation, anemia, will check the las today, Visit type - Emergency Visit Emergency Visit: No - New Patient This patient is new to me today: Yes Date on this admission: 01/26/20 - Critical Care Critical Care patient: No - Discharge Referral Referred to [facility] No
[2020-01-26] MEDS: THIAMINE HCL 100 MG TABLET (FP) PO SCH (09:57)
[2020-01-26] MEDS: FOLIC ACID 1 MG TABLET (FP) PO SCH (09:57)
--- NOTE | 2020-01-26 13:24 | CONSULT ---
- Consultation REQUESTING PROVIDER: A Claudio YOON CONSULT REQUEST: We have been asked to surgically evaluate this patient for buttock lesions. Hospitalist:Heraclio Snyder MD HISTORY OF PRESENT ILLNESS: CTSP for draining wounds of r>l buttocks; hx. dates back until at least 2010 and probably earlier documenting this problem. PMHx: PSHx: Home Medications Medication Instructions Recorded NK [No Known Home Medication] 01/30/14 Allergies Allergy/AdvReac Type Severity Reaction Status Date / Time No Known Allergies Allergy Verified 01/24/20 09:35 REVIEW OF SYSTEMS: CONSTITUTIONAL: Absent: fever, chills, diaphoresis, generalized weakness, malaise, loss of appetite, weight change CARDIOVASCULAR: Absent: chest pain, syncope, palpitations, irregular heart rate, lightheadedness, peripheral edema RESPIRATORY: Absent: cough, shortness of breath, dyspnea with exertion, wheezing, stridor, hemoptysis GASTROINTESTINAL: Absent: abdominal pain, abdominal distension, nausea, vomiting, diarrhea, constipation, melena, hematochezia GENITOURINARY: Absent: dysuria, frequency, urgency, hesitancy, hematuria, flank pain, genital pain MUSCULOSKELETAL: Absent: myalgia, arthralgia, joint swelling, back pain, neck pain SKIN: Absent: rash, itching, pallor HEMATOLOGIC/IMMUNOLOGIC: Absent: easy bleeding, easy bruising, lymphadenopathy NEUROLOGIC: Absent: headache, focal weakness, paresthesias, dizziness, unsteady gait, seizure, mental status changes, bladder or bowel incontinence PSYCHIATRIC: Absent: anxiety, depression, suicidal or homicidal ideation, hallucinations. PHYSICAL EXAM: GENERAL: Awake, alert, and fully oriented, in no acute distress. HEAD: Normal with no signs of trauma. EYES: PERRL, sclera anicteric, conjunctiva clear. NECK: Normal ROM, supple without lymphadenopathy, JVD, or masses. LUNGS: Clear to auscultation bilat anteriorly. No wheezes, and no crackles. No accessory muscle use. HEART: Regular rate and rhythm. No murmurs ABDOMEN: Soft, nontender, not distended, normoactive bowel sounds, no guarding, no rebound, no masses. No organomegaly. MUSCULOSKELETAL: Normal ROM at all joints. No bony deformities or tenderness. No CVA tenderness. UPPER EXTREMITIES: 2+ pulses, warm, well-perfused. No cyanosis. Cap refill <2 seconds. No peripheral edema. LOWER EXTREMITIES: 2+ pulses, warm, well-perfused. No calf tenderness. No peripheral edema. NEUROLOGICAL: Normal speech, gait not observed. PSYCH: Cooperative. Good eye contact. Appropriate mood and affect. SKIN: Extensive subacute hidradenitis suppurativa of the skin of both buttocks Vital Signs Temperature 98.3 F 01/26/20 10:00 Pulse Rate 94 H 01/26/20 10:00 Respiratory Rate 18 01/26/20 10:00 Blood Pressure 99/61 01/26/20 10:00 O2 Sat by Pulse Oximetry (%) 98 01/26/20 10:00 Lab Results WBC 10.1 K/mm3 (4.0-10.0) H 01/25/20 09:30 RBC 2.07 M/mm3 (4.00-5.60) L 01/25/20 09:30 Hgb 7.7 GM/dL (11.7-16.9) L 01/25/20 09:30 Hct 22.4 % (35.4-49) L 01/25/20 09:30 MCV 108.4 fl (80-96) H 01/25/20 09:30 MCHC 34.1 g/dl (32.0-35.9) 01/25/20 09:30 RDW 14.6 % (11.9-15.9) 01/25/20 09:30 Plt Count 170 K/MM3 (134-434) 01/25/20 09:30 INR 2.57 (0.83-1.09) H 01/25/20 08:14 Sodium 136 mmol/L (136-145) 01/25/20 07:43 Potassium 3.5 mmol/L (3.5-5.1) 01/25/20 07:43 Chloride 103 mmol/L (98-107) 01/25/20 07:43 Carbon Dioxide 25 mmol/L (21-32) 01/25/20 07:43 Anion Gap 7 MMOL/L (8-16) L 01/25/20 07:43 BUN 3.2 mg/dL (7-18) L 01/25/20 07:43 Creatinine 0.8 mg/dL (0.55-1.3) 01/25/20 07:43 Random Glucose 61 mg/dL (74-106) L 01/25/20 07:43 Calcium 7.5 mg/dL (8.5-10.1) L 01/25/20 07:43 Blood Type A POSITIVE 01/24/20 10:00 Antibody Screen Negative 01/24/20 10:00 IMP: Hidradenitis suppurative of the buttocks PLAN: Dry dressings as need; there is no indication for surgical intervention at this time; further evaluation can be done once the patients underlying liver failure is txed.
[2020-01-26 14:17] LABS: BASO % 0.8 % (0-2.0); EOS % 1.4 % (0-4.5); HEMATOCRIT 21.3 % (35.4-49); HEMOGLOBIN 7.4 GM/dL (11.7-16.9); LYMPH % 10.2 % (8-40); MCH 37.9 pg (25.7-33.7); MCHC 34.7 g/dl (32.0-35.9); MEAN CELL VOLUME 109.2 fl (80-96); MEAN PLT VOLUME 7.5 fl (7.5-11.1); MONO % 9.2 % (3.8-10.2); NEUT % 78.4 % (42.8-82.8); PLATELET COUNT 171 K/MM3 (134-434); RBC 1.95 M/mm3 (4.00-5.60); RDW 14.3 % (11.9-15.9); WHITE BLOOD COUNT 9.4 K/mm3 (4.0-10.0)
[2020-01-26 14:57] LABS: BLOOD UREA NITROGEN 5.5 mg/dL (7-18); CALCIUM 7.7 mg/dL (8.5-10.1); TOT PROT 8.2 g/dl (6.4-8.2)
[2020-01-26 15:02] LABS: BILIRUBIN,TOTAL 13.3 mg/dL (0.2-1)
--- NOTE | 2020-01-26 17:17 | PN ---
Progress Note (short form) - Note Progress Note: ID CONSULT DICTATED CELLULITIS, BUTTOCKS LIVER FAILURE EMPIRIC VANCOMYCIN/UNASYN
[2020-01-26] MEDS ORDERED: SODIUM CHLORIDE 100 ML IVPB ONE (17:29)
[2020-01-26] MEDS ORDERED: AMPICILLIN NA/SULBACTAM NA 1.5 GM VIAL ONE (17:29)
[2020-01-26] MEDS: AMPICILLIN NA/SULBACTAM NA 1.5 GM in SODIUM CHLORIDE 100 ML IVPB SCH (17:36)
[2020-01-26] MEDS: VANCOMYCIN 1 GRAM (PRE-DOCKED) 1,000 MG/250 ML BAG IVPB SCH (17:36)
--- NOTE | 2020-01-26 18:40 | CONS ---
INFECTIOUS DISEASE CONSULTATION DATE OF CONSULTATION: DATE OF DICTATION: 01/26/2020 Patient is a 59-year-old male with a history of chronic alcohol abuse evaluated for bilateral buttock cellulitis. He does not give a reliable history. He was admitted to the hospital on January 24, 2020, with a 2-week history of generalized weakness, fatigue, and dizziness. He was found to be markedly jaundiced with total bilirubin of 13.3. He was also noted to have induration and discoloration of the buttock areas bilaterally. CAT scan of the abdomen and pelvis was performed and was negative for abscess. It did, however, reveal thickening of the skin consistent with cellulitis. According to the notes, he has had this condition for several years. On review of his hospital chart, there does not appear to be any history of [id number] skin pathogens. He has no complaints at the present time. No fever or chills. PAST MEDICAL HISTORY: Positive for alcohol abuse, hypertension, seizure disorder. LABORATORY DATA: White count 9.4. Creatinine 1.0. Total bilirubin 13.3, alkaline phosphatase 215, AST 114. COVID-19 negative. PHYSICAL EXAMINATION: General: He is chronically ill appearing. Vital Signs: Temperature 98.3; blood pressure 99/61; pulse 94, regular; respirations 18 per minute. HEENT: Sclera icteric. Heart: Sounds S1, S2. Lungs: Clear. Abdomen: Soft. Buttock Area: There is bilateral discoloration of the buttocks bilaterally with hyperpigmentation and induration. There is some slight erythema. No warmth. No tenderness. No fluctuance or crepitus. IMPRESSION: 1. Cellulitis of the buttocks bilaterally. 2. Liver failure. Surgical note appreciated. No need for surgical intervention at this time. Await cultures. Continue empiric vancomycin. Will add Unasyn. Local wound care. Thank you for the kind referral. JESSICA ROCHA M.D. MANDI/[id number]
[2020-01-26 22:09] LABS: HEP B CORE AB, TOT Positive (Negative)
[2020-01-26 22:55] LABS: EPI CELLS 3 /uL (0-25.1); HYALINE CASTS 3 /uL (0-3.1); PH,URINE 7.5 (5.0-8.0); URINE APPEARANCE CLOUDY; URINE BILIRUBIN 3+ (NEGATIVE); URINE COLOR DK YELLOW; URINE GLUCOSE (UA) NEGATIVE (NEGATIVE); URINE KETONE NEGATIVE (NEGATIVE); URINE LEUK ESTERASE TRACE (NEGATIVE); URINE NITRITE POSITIVE (NEGATIVE); URINE PROTEIN TRACE (NEGATIVE); URINE RBC 34 /uL (0-23.9); URINE WBC 50 /uL (0-25.8)
[2020-01-26 23:07] LABS: URINE CRYSTALS NO SEEN /hpf
[2020-01-27] MEDS ORDERED: AMPICILLIN NA/SULBACTAM NA 1.5 GM VIAL ONE ×3 (01:31→18:23)
[2020-01-27] MEDS ORDERED: SODIUM CHLORIDE 100 ML IVPB ONE ×3 (01:32→18:23)
[2020-01-27] MEDS: AMPICILLIN NA/SULBACTAM NA 1.5 GM in SODIUM CHLORIDE 100 ML IVPB SCH ×3 (02:12→18:24)
[2020-01-27] MEDS: VANCOMYCIN 1 GRAM (PRE-DOCKED) 1,000 MG/250 ML BAG IVPB SCH ×2 (05:24→17:01)
[2020-01-27] MEDS: LACTULOSE 20 GM/30 ML UDC (FOR ORAL USE ONLY) PO SCH ×3 (05:25→21:35)
--- NOTE | 2020-01-27 08:37 | PN ---
Physical Exam: SUBJECTIVE: Patient seen and examined OBJECTIVE: Vital Signs Period Temp Pulse Resp BP Sys/Franco Pulse Ox Last 24 Hr 97.1 F-99 F 70-99 18-18 90-120/56-69 93-98 GENERAL: The patient is awake, alert, and fully oriented, in no acute distress. HEAD: Normal with no signs of trauma. EYES: PERRL, extraocular movements intact, sclera anicteric, conjunctiva clear. No ptosis. ENT: Ears normal, nares patent, oropharynx clear without exudates, moist mucous membranes. NECK: Trachea midline, full range of motion, supple. LUNGS: Breath sounds equal, clear to auscultation bilaterally, no wheezes, no crackles, no accessory muscle use. HEART: Regular rate and rhythm, S1, S2 without murmur, rub or gallop. ABDOMEN: Soft, nontender, nondistended, normoactive bowel sounds, no guarding, no rebound, no hepatosplenomegaly, no masses. On examination of the buttock, ecchymoses fading in both buttocks. Some induration palpable. EXTREMITIES: 2+ pulses, warm, well-perfused, no edema. NEUROLOGICAL: Cranial nerves II through XII grossly intact. Normal speech, gait not observed. PSYCH: Normal mood, normal affect. SKIN: Warm, dry, normal turgor, no rashes or lesions noted Laboratory Results - last 24 hr 01/25/20 01/26/20 01/26/20 13:08 13:55 13:55 WBC 9.4 RBC 1.95 L Hgb 7.4 L Hct 21.3 L MCV 109.2 H MCH 37.9 H MCHC 34.7 RDW 14.3 Plt Count 171 MPV 7.5 Absolute Neuts (auto) 7.3 Neutrophils % 78.4 Lymphocytes % 10.2 Monocytes % 9.2 Eosinophils % 1.4 D Basophils % 0.8 Nucleated RBC % 0 Sodium 134 L Potassium 3.0 L Chloride 101 Carbon Dioxide 28 Anion Gap 5 L BUN 5.5 L Creatinine 1.0 Est GFR (CKD-EPI)AfAm 96.40 Est GFR (CKD-EPI)NonAf 83.18 Random Glucose 129 H Calcium 7.7 L Total Bilirubin 13.3 H D AST 114 H ALT 26 Alkaline Phosphatase 215 H Total Protein 8.2 Albumin 1.0 L Urine Color Urine Appearance Urine pH Ur Specific [place] Urine Protein Urine Glucose (UA) Urine Ketones Urine Blood Urine Nitrite Urine Bilirubin Urine Urobilinogen Ur Leukocyte Esterase Urine WBC (Auto) Urine RBC (Auto) Urine Casts (Auto) U Epithel Cells (Auto) Urine Crystals (Auto) Urine Bacteria (Auto) Hep A IgM Ab Confirm Negative Hepatitis A Ab Total Positive H Hep Bs Antigen Negative Hep Bs Antibody Reactive Hep B Core Total Ab Positive H Hep B Core IgM Ab Negative Hepatitis Be Antibody Negative Hepatitis Be Antigen Negative 01/26/20 22:45 WBC RBC Hgb Hct MCV MCH MCHC RDW Plt Count MPV Absolute Neuts (auto) Neutrophils % Lymphocytes % Monocytes % Eosinophils % Basophils % Nucleated RBC % Sodium Potassium Chloride Carbon Dioxide Anion Gap BUN Creatinine Est GFR (CKD-EPI)AfAm Est GFR (CKD-EPI)NonAf Random Glucose Calcium Total Bilirubin AST ALT Alkaline Phosphatase Total Protein Albumin Urine Color Dk yellow Urine Appearance Cloudy Urine pH 7.5 Ur Specific [place] 1.019 Urine Protein Trace Urine Glucose (UA) Negative Urine Ketones Negative Urine Blood Negative Urine Nitrite Positive H Urine Bilirubin 3+ H Urine Urobilinogen 1.0 Ur Leukocyte Esterase Trace Urine WBC (Auto) 50 Urine RBC (Auto) 34 Urine Casts (Auto) 3 U Epithel Cells (Auto) 3 Urine Crystals (Auto) No seen Urine Bacteria (Auto) 50.0 Hep A IgM Ab Confirm Hepatitis A Ab Total Hep Bs Antigen Hep Bs Antibody Hep B Core Total Ab Hep B Core IgM Ab Hepatitis Be Antibody Hepatitis Be Antigen Active Medications Generic Name Dose Route Start Last Admin Trade Name Freq PRN Reason Stop Dose Admin Folic Acid 1 mg 01/26/20 10:00 01/26/20 09:57 Folic Acid - PO 1 mg DAILY GUERDA Administration Vancomycin HCl 1,000 mg in 250 mls @ 166.667 mls/hr 01/26/20 17:30 01/27/20 05:24 Vancomycin (Pre-Docked) IVPB 166.667 mls/hr Q12H GUERDA Administration Protocol Ampicillin Sodium/Sulbactam 100 mls @ 200 mls/hr 01/26/20 18:00 01/27/20 02:12 Sodium 1.5 gm/ Sodium Chloride IVPB 200 mls/hr Q8H-IV GUERDA Administration Lactulose 20 gm 01/25/20 14:00 01/27/20 05:25 Cephulac (Oral Use) PO 20 gm TID GUERDA Administration Lorazepam 1 mg 01/25/20 18:42 Ativan Injection - IVPUSH Q6H PRN ANXIETY Thiamine HCl 200 mg 01/25/20 10:00 01/26/20 09:57 Vitamin B1 - PO 200 mg DAILY GUERDA Administration ASSESSMENT/PLAN: 59 year-old male with a PMH significant for HTN, ETOH abuse, and seizure disorder not on meds, admitted for decompensated liver injury. Seen by ID and broad spectrum antibiotics initiated. Surgery opines no indication for immediate surgery 1. Decompensated liver injury -MELD score 28; TRUNG 71 -correctional counselor/case manager in process of arranging transfer to hepatobillary service, not accepted yet, -seen and evaluated by GI . cont lactulose 2. Chronic alcohol abuse -no signs of withdrawal at present -PRN ativan - cont thiamine 3. Buttock abscesses - Vanc x 1g - ID consult (Dr Bishop)- appreciate input now on Vanc/Unasyn - CT pelvis shows thickening of the buttocks, no fluid collection, 4. anemia - cont monitor; recheck in am - clinically not in distress 5. DVT prophylaxis - SCD 6. Will request PT eval. Visit type - New Patient This patient is new to me today: Yes Date on this admission: 01/27/20 - Critical Care Critical Care patient: No - Discharge Referral Referred to [facility] Med P.C.: No
[2020-01-27 10:07] LABS: BASO % 0.7 % (0-2.0); EOS % 1.8 % (0-4.5); HEMATOCRIT 21.8 % (35.4-49); HEMOGLOBIN 7.5 GM/dL (11.7-16.9); LYMPH % 13.8 % (8-40); MCH 37.6 pg (25.7-33.7); MCHC 34.5 g/dl (32.0-35.9); MEAN CELL VOLUME 108.9 fl (80-96); MEAN PLT VOLUME 7.4 fl (7.5-11.1); NEUT % 74.7 % (42.8-82.8); PLATELET COUNT 163 K/MM3 (134-434); RDW 14.4 % (11.9-15.9); RETICULOCYTES 2.72 % (0.5-1.5); WHITE BLOOD COUNT 11.5 K/mm3 (4.0-10.0)
[2020-01-27 10:20] LABS: BLOOD UREA NITROGEN 4.8 mg/dL (7-18); CALCIUM 7.9 mg/dL (8.5-10.1)
[2020-01-27 10:24] LABS: BILIRUBIN,TOTAL 14.4 mg/dL (0.2-1); CREATININE 1.2 mg/dL (0.55-1.3)
[2020-01-27 10:54] LABS: PLATELET ESTIMATE NORMAL
[2020-01-27] MEDS: THIAMINE HCL 100 MG TABLET (FP) PO SCH (12:15)
[2020-01-27] MEDS: FOLIC ACID 1 MG TABLET (FP) PO SCH (12:15)
[2020-01-27 12:33] LABS: TOT PROT 9.3 g/dl (6.4-8.2)
[2020-01-27 12:52] LABS: POTASSIUM 2.9 mmol/L (3.5-5.1)
[2020-01-28] MEDS ORDERED: SODIUM CHLORIDE 100 ML IVPB ONE ×2 (02:20→10:09)
[2020-01-28] MEDS ORDERED: AMPICILLIN NA/SULBACTAM NA 1.5 GM VIAL ONE ×2 (02:20→10:09)
[2020-01-28] MEDS ORDERED: POTASSIUM CHLORIDE TABS 20 MEQ TABLET.ER (FP) PO ONE (02:25)
[2020-01-28] MEDS: AMPICILLIN NA/SULBACTAM NA 1.5 GM in SODIUM CHLORIDE 100 ML IVPB SCH ×2 (02:31→13:12)
[2020-01-28] MEDS: KCL 10 MEQ IVPB 10 MEQ/100 ML INFUS.BAG IVPB SCH ×2 (02:42→04:49)
[2020-01-28] MEDS: LACTULOSE 20 GM/30 ML UDC (FOR ORAL USE ONLY) PO SCH ×3 (05:49→21:25)
[2020-01-28 09:00] LABS: BASO % 0.5 % (0-2.0); EOS % 1.2 % (0-4.5); HEMATOCRIT 23.3 % (35.4-49); HEMOGLOBIN 7.9 GM/dL (11.7-16.9); LYMPH % 4.6 % (8-40); MCHC 33.8 g/dl (32.0-35.9); MEAN CELL VOLUME 112.5 fl (80-96); MEAN PLT VOLUME 7.5 fl (7.5-11.1); MONO % 9.9 % (3.8-10.2); NEUT % 83.8 % (42.8-82.8); PLATELET COUNT 145 K/MM3 (134-434); RBC 2.07 M/mm3 (4.00-5.60); RDW 14.6 % (11.9-15.9); WHITE BLOOD COUNT 11.6 K/mm3 (4.0-10.0)
[2020-01-28 09:38] LABS: BLOOD UREA NITROGEN 4.3 mg/dL (7-18); CREATININE 1.3 mg/dL (0.55-1.3); POTASSIUM 3.4 mmol/L (3.5-5.1); TOT PROT 9.1 g/dl (6.4-8.2)
[2020-01-28 09:39] LABS: BILIRUBIN,TOTAL 13.4 mg/dL (0.2-1)
--- NOTE | 2020-01-28 10:07 | PN.GI ---
GI Progress Note Subjective: No acute events Seen by surgery over weekend. Hydradenitis Suppuritiva of the buttock b/l No focal complaints - Objective Vital Signs: Vital Signs Temperature 98.2 F 01/28/20 06:00 Pulse Rate 95 H 01/28/20 06:00 Respiratory Rate 18 01/28/20 06:00 Blood Pressure 98/61 01/28/20 06:00 O2 Sat by Pulse Oximetry (%) 98 01/28/20 06:00 Constitutional: Calm Eyes: Yes: Sclera Icterus Cardiovascular: Yes: Regular Rate and Rhythm Respiratory: Yes: CTA Bilaterally Gastrointestinal Inspection: No: Distention ...Auscultate: Yes: Normoactive Bowel Sounds ...Palpate: Yes: Hepatomegaly, Soft, Tenderness ...Percussion: No: Tympanitic Edema: No (No LE edema) Labs: CBC, BMP 01/28/20 08:40 01/28/20 08:40 INR, PTT INR 2.57 (0.83-1.09) H 01/25/20 08:14 Problem List - Problems (1) Alcoholic hepatitis without ascites Assessment/Plan: Clinically stable Continue Lactulose. Decrease to BID If continued improvement of liver chemistries, hold off on Prednisolone therapy Correct lytes Monitor for ETOH withdrawal Supportive measures Hepatitis Serologies reflect possible previous exposure to hepatitis B with clearance and immunity Code(s): K70.10 - ALCOHOLIC HEPATITIS WITHOUT ASCITES
[2020-01-28] MEDS: FOLIC ACID 1 MG TABLET (FP) PO SCH (10:50)
[2020-01-28] MEDS: THIAMINE HCL 100 MG TABLET (FP) PO SCH (10:50)
[2020-01-28] MEDS: VANCOMYCIN 1 GRAM (PRE-DOCKED) 1,000 MG/250 ML BAG IVPB SCH (11:45)
--- NOTE | 2020-01-28 13:35 | PN ---
Physical Exam: SUBJECTIVE: Patient seen and examined OBJECTIVE: Vital Signs Period Temp Pulse Resp BP Sys/Franco Pulse Ox Last 24 Hr 97.7 F-99.0 F 84-96 18-18 92-99/52-61 90-98 GENERAL: The patient is awake, alert, and fully oriented, in no acute distress. LUNGS: Breath sounds equal, clear to auscultation bilaterally, no wheezes, no crackles, no accessory muscle use. HEART: Regular rate and rhythm, S1, S2 without murmur, rub or gallop. ABDOMEN: Soft, nontender, slightly distended, normoactive bowel sounds, no guarding, no rebound, no hepatosplenomegaly, no masses. spider angiomata noted EXTREMITIES: 2+ pulses, warm, well-perfused, no edema. NEUROLOGICAL: Cranial nerves II through XII grossly intact. astrexis noted Laboratory Results - last 24 hr 01/28/20 01/28/20 01/28/20 08:40 08:40 08:40 WBC 11.6 H RBC 2.07 L Hgb 7.9 L Hct 23.3 L MCV 112.5 H MCH 38.0 H MCHC 33.8 RDW 14.6 Plt Count 145 MPV 7.5 Absolute Neuts (auto) 9.7 H Neutrophils % 83.8 H Lymphocytes % 4.6 L D Monocytes % 9.9 Eosinophils % 1.2 Basophils % 0.5 Nucleated RBC % 0 Sodium 134 L Potassium 3.4 L Chloride 102 Carbon Dioxide 25 Anion Gap 7 L BUN 4.3 L Creatinine 1.3 Est GFR (CKD-EPI)AfAm 70.20 Est GFR (CKD-EPI)NonAf 60.57 Random Glucose 120 H Calcium 8.0 L Total Bilirubin 13.4 H AST 101 H ALT 38 Alkaline Phosphatase 184 H Total Protein 9.1 H Albumin 1.0 L Vancomycin Pre-Dose 28.0 H Active Medications Generic Name Dose Route Start Last Admin Trade Name Freq PRN Reason Stop Dose Admin Folic Acid 1 mg 01/26/20 10:00 01/28/20 10:50 Folic Acid - PO 1 mg DAILY GUERDA Administration Piperacillin Sod/Tazobactam 50 mls @ 100 mls/hr 01/28/20 13:30 Sod 3.375 gm/ Dextrose IVPB Q8H-IV GUERDA Protocol Lactulose 20 gm 01/25/20 14:00 01/28/20 05:49 Cephulac (Oral Use) PO 20 gm TID GUERDA Administration Lorazepam 1 mg 01/25/20 18:42 Ativan Injection - IVPUSH Q6H PRN ANXIETY Thiamine HCl 200 mg 01/25/20 10:00 01/28/20 10:50 Vitamin B1 - PO 200 mg DAILY GUERDA Administration ASSESSMENT/PLAN: 59 year-old man with a PMH of HTN, ETOH abuse, and seizure disorder not on meds, admitted for decompensated liver injury. # Decompensated Cihrrosis MELD score 28; CPS-C started on lactulose. Will start spironolactone pending renal eval has platypnea type2 Hepatorenal syndrome Chronic alcohol abuse no signs of withdrawal at present Thiamine, MV in process to be transferred to [facility] liver center, pending protective services case worker approval at [facility]. GI consult appreciated Nephrology consult requested Hydranitis suppurativa Abx per ID (check vanco trough in AM) no surgical intervention at this time Surgical consult appreciated ID consult appreciated anemia h/o seizure disorder DVT prophylaxis: heparin BID Visit type - Emergency Visit Emergency Visit: Yes ED Registration Date: 01/24/20 Care time: The patient presented to the Emergency Department on the above date and was hospitalized for further evaluation of their emergent condition. - New Patient This patient is new to me today: Yes Date on this admission: 01/29/20 - Critical Care Critical Care patient: No - Discharge Referral Referred to [facility] Med P.C.: No
--- NOTE | 2020-01-28 16:56 | CONSULT ---
Consult Consult Specialty:: Nephrology Reason for Consultation:: hypokalemia - History of Present Illness Chief Complaint: abd distension History of Present Illness: Pt is a 59 year old man with pmhx of etoh abuse, htn, and epilepsy who presents with ascites and dizziness. He says he has had the symptoms for 2 weeks. I was called to assess his volume status. He was also found to be hypokalemic. He says his last drink was on Tuesday. He denies dysuria or hematuria. He is awake and appears comfortable. HE does complain of lower ext edema at times. - History Source History Provided By: Patient - Past Medical History Cardio/Vascular: Yes: HTN Additional Medical History: Denies - Past Surgical History Additional Surgical History: Denies - Alcohol/Substance Use Hx Alcohol Use: Yes (daily) History of Substance Use: reports: None - Smoking History Smoking history: Never smoked Have you smoked in the past 12 months: No Aproximately how many cigarettes per day: 0 If you are a former smoker, when did you quit?: 10/2012 - Social History Usual Living Arrangement: Alone ADL: Independent History of Recent Travel: No Home Medications - Allergies Allergies/Adverse Reactions: Allergies Allergy/AdvReac Type Severity Reaction Status Date / Time No Known Allergies Allergy Verified 01/24/20 09:35 - Home Medications Home Medications: Ambulatory Orders NK [No Known Home Medication] 01/30/14 Family Medical History Family History: Denies Other Family History: Father: : "Cancer". Mother: : s/p fall @ 83. No family history of colon cancer, liver disease. 1 daughter, healthy Review of Systems - Review of Systems Constitutional: reports: Weakness Eyes: reports: No Symptoms HENT: reports: No Symptoms Neck: reports: No Symptoms Cardiovascular: reports: No Symptoms Respiratory: reports: No Symptoms Gastrointestinal: reports: No Symptoms Genitourinary: reports: No Symptoms Musculoskeletal: reports: No Symptoms Integumentary: reports: No Symptoms Neurological: reports: No Symptoms Endocrine: reports: No Symptoms Hematology/Lymphatic: reports: No Symptoms Psychiatric: reports: No Symptoms Physical Exam Vital Signs: Vital Signs Temperature 97.7 F 01/28/20 10:00 Pulse Rate 96 H 01/28/20 10:00 Respiratory Rate 18 01/28/20 10:00 Blood Pressure 94/56 L 01/28/20 10:00 O2 Sat by Pulse Oximetry (%) 90 L 01/28/20 10:00 Constitutional: Yes: Calm Eyes: Yes: Sclera Icterus HENT: Yes: Atraumatic Cardiovascular: Yes: S1, S2 Respiratory: Yes: CTA Bilaterally Gastrointestinal: Yes: Ascites, Other ([place]) Renal/: Yes: WNL Musculoskeletal: Yes: WNL Edema: Yes Edema: LLE: Trace, RLE: Trace Neurological: Yes: Oriented Psychiatric: Yes: Oriented Labs: CBC, BMP 01/28/20 08:40 01/28/20 08:40 Imaging - Results Cat Scan: Report Reviewed Assessment/Plan Current Medications Generic Name Dose Route Start Last Admin Trade Name Freq PRN Reason Stop Dose Admin Folic Acid 1 mg 01/26/20 10:00 01/28/20 10:50 Folic Acid - PO 1 mg DAILY GUERDA Administration Heparin Sodium (Porcine) 5,000 unit 01/28/20 22:00 Heparin - SQ BID GUERDA Piperacillin Sod/Tazobactam 50 mls @ 100 mls/hr 01/28/20 18:00 Sod 3.375 gm/ Dextrose IVPB Q8H-IV GUERDA Protocol Lactulose 20 gm 01/25/20 14:00 01/28/20 13:57 Cephulac (Oral Use) PO 20 gm TID GUERDA Administration Lorazepam 1 mg 01/25/20 18:42 Ativan Injection - IVPUSH Q6H PRN ANXIETY Thiamine HCl 200 mg 01/25/20 10:00 01/28/20 10:50 Vitamin B1 - PO 200 mg DAILY GUERDA Administration Impression 1. liver cirrhosis 2. etoh abuse 3. htn 4. epilepsy 5. ascites Plan - cont lactulose - monitor lytes - GI follow up - will start aldactone - monitor lytes - check urine sodium - will follow
[2020-01-28 17:04] LABS: IRON SERUM 41 ug/dL (50-175); TOTAL IRON BINDING CAPACITY 43 ug/dL (250-450)
[2020-01-28] MEDS ORDERED: PIPERACILLIN/TAZOBACTAM 3.375 GM VIAL IVPB ONE (18:07)
[2020-01-28] MEDS ORDERED: DEXTROSE 5%-WATER - 50 ML IVPB ONE (18:07)
[2020-01-28] MEDS: PIPERACILLIN/TAZOB 3.375 GM 3.375 GM in DEXTROSE 5%-WATER - 50 ML IVPB SCH (18:40)
[2020-01-28] MEDS: HEPARIN NA (PORCINE) 5,000 UNITS/ML 1ML VIAL SQ SCH (21:25)
[2020-01-28] MEDS: SPIRONOLACTONE 25 MG TABLET PO SCH (22:20)
[2020-01-29] MEDS ORDERED: DEXTROSE 5%-WATER - 50 ML IVPB ONE ×3 (00:53→17:03)
[2020-01-29] MEDS ORDERED: PIPERACILLIN/TAZOBACTAM 3.375 GM VIAL IVPB ONE ×3 (00:53→17:02)
[2020-01-29] MEDS: PIPERACILLIN/TAZOB 3.375 GM 3.375 GM in DEXTROSE 5%-WATER - 50 ML IVPB SCH ×3 (01:46→17:05)
[2020-01-29] MEDS: LACTULOSE 20 GM/30 ML UDC (FOR ORAL USE ONLY) PO SCH ×3 (06:16→21:41)
[2020-01-29 08:20] LABS: PROTHROMBIN TIME (PATIENT) 35.8 SEC (9.7-13.0)
[2020-01-29 08:30] LABS: ALBUMIN 0.9 g/dl (3.4-5.0); BILIRUBIN,TOTAL 12.2 mg/dL (0.2-1); BLOOD UREA NITROGEN 6.3 mg/dL (7-18); CALCIUM 7.5 mg/dL (8.5-10.1); CREATININE 1.7 mg/dL (0.55-1.3); POTASSIUM 3.2 mmol/L (3.5-5.1); TOT PROT 7.6 g/dl (6.4-8.2)
[2020-01-29 08:37] LABS: BASO % 0.5 % (0-2.0); HEMOGLOBIN 7.6 GM/dL (11.7-16.9); LYMPH % 9.7 % (8-40); MCHC 34.3 g/dl (32.0-35.9); MEAN CELL VOLUME 110.6 fl (80-96); MEAN PLT VOLUME 7.8 fl (7.5-11.1); MONO % 13.9 % (3.8-10.2); NEUT % 73.9 % (42.8-82.8); PLATELET COUNT 133 K/MM3 (134-434); RBC 1.99 M/mm3 (4.00-5.60); RDW 14.3 % (11.9-15.9); WHITE BLOOD COUNT 11.9 K/mm3 (4.0-10.0)
[2020-01-29] MEDS ORDERED: SODIUM CHLORIDE 500 ML IV STA (09:19)
[2020-01-29] MEDS ORDERED: POTASSIUM CHLORIDE TABS 20 MEQ TABLET.ER (FP) PO ONE (09:20)
[2020-01-29 09:48] LABS: MAGNESIUM 1.9 mg/dL (1.8-2.4)
[2020-01-29] MEDS: SPIRONOLACTONE 25 MG TABLET PO SCH (09:52)
[2020-01-29] MEDS: FOLIC ACID 1 MG TABLET (FP) PO SCH (09:52)
[2020-01-29] MEDS: HEPARIN NA (PORCINE) 5,000 UNITS/ML 1ML VIAL SQ SCH ×2 (09:54→21:42)
[2020-01-29] MEDS: THIAMINE HCL 100 MG TABLET (FP) PO SCH (09:54)
--- NOTE | 2020-01-29 09:58 | PN ---
Physical Exam: SUBJECTIVE: Patient seen and examined at the bedside. He tells me he feels well and not in any pain. He admits to drinking apx 6 beers during the day and more with dinner but drinks more on the weekends He lives alone He agrees to go to [facility] for liver evaluation. He denies any discomfort. Received microblog that patient is hypotensive 70/50s. his bps have been trending on the lower end. he has mild tachycardia and leukocytosis at 11.9. he is on zosyn IV for celluitis of buttocks hypokalemia at 3.2, repleted with K dur 40meq x 1 OBJECTIVE: Patient is a 59 year-old man with a past medical history of HTN, ETOH abuse, and seizure disorder not on meds, admitted for decompensated liver injury and corwin dice. He is peding transfer to [facility] liver center. problem list: generalized jaundice etoh abuse sepsis bilaeral buttock celluliits, on zosyn/vanco hypokalemia hypotension GUILLERMO Vital Signs Period Temp Pulse Resp BP Sys/Franco Pulse Ox Last 24 Hr 97.7 F-99.4 F 88-96 18-18 86-102/56-63 90-99 GENERAL: The patient is awake, alert, in no acute distress. generalized jaundice - speech ranges between clear and garbled HEAD: Normal with no signs of trauma. EYES: PERRL, extraocular movements intact, sclera anicteric, conjunctiva clear. No ptosis. ENT: Ears normal, nares patent, oropharynx clear without exudates, moist mucous membranes. NECK: Trachea midline, full range of motion, supple. LUNGS: Breath sounds equal, clear to auscultation bilaterally HEART: Regular rate and rhythm, S1, S2 without murmur, rub or gallop. ABDOMEN: soft mildly distended, + bowel sounds EXTREMITIES: no edema. NEUROLOGICAL: Normal speech, gait not observed. PSYCH: Normal mood, normal affect. SKIN: generalized jaundice Laboratory Results - last 24 hr 01/27/20 01/29/20 01/29/20 08:56 07:38 07:38 WBC 11.9 H RBC 1.99 L Hgb 7.6 L Hct 22.0 L MCV 110.6 H MCH 38.0 H MCHC 34.3 RDW 14.3 Absolute Neuts (auto) 8.8 H Neutrophils % 73.9 Lymphocytes % 9.7 D Monocytes % 13.9 H Eosinophils % 2.0 Basophils % 0.5 Nucleated RBC % 0 PT with INR 35.80 H INR 3.00 H Sodium Potassium Chloride Carbon Dioxide Anion Gap BUN Creatinine Est GFR (CKD-EPI)AfAm Est GFR (CKD-EPI)NonAf Random Glucose Calcium Magnesium Iron 41 L TIBC 43 L Iron Saturation 95 H Unsaturated IBC 2 L Total Bilirubin AST ALT Alkaline Phosphatase Total Protein Albumin 01/29/20 07:38 WBC RBC Hgb Hct MCV MCH MCHC RDW Absolute Neuts (auto) Neutrophils % Lymphocytes % Monocytes % Eosinophils % Basophils % Nucleated RBC % PT with INR INR Sodium 135 L Potassium 3.2 L Chloride 104 Carbon Dioxide 25 Anion Gap 7 L BUN 6.3 L Creatinine 1.7 H Est GFR (CKD-EPI)AfAm 50.75 Est GFR (CKD-EPI)NonAf 43.79 Random Glucose 82 Calcium 7.5 L Magnesium 1.9 Iron TIBC Iron Saturation Unsaturated IBC Total Bilirubin 12.2 H AST 109 H ALT 28 Alkaline Phosphatase 149 H Total Protein 7.6 Albumin 0.9 L Active Medications Generic Name Dose Route Start Last Admin Trade Name Freq PRN Reason Stop Dose Admin Folic Acid 1 mg 01/26/20 10:00 01/29/20 09:52 Folic Acid - PO 1 mg DAILY GUERDA Administration Heparin Sodium (Porcine) 5,000 unit 01/28/20 22:00 01/29/20 09:54 Heparin - SQ 5,000 unit BID GUERDA Administration Piperacillin Sod/Tazobactam 50 mls @ 100 mls/hr 01/28/20 18:00 01/29/20 09:54 Sod 3.375 gm/ Dextrose IVPB 100 mls/hr Q8H-IV GUERDA Administration Protocol Sodium Chloride 500 mls @ 500 mls/hr 01/29/20 09:19 01/29/20 09:52 Normal Saline - IV 01/29/20 10:18 500 mls/hr ASDIR STA Administration Lactulose 20 gm 01/25/20 14:00 01/29/20 06:16 Cephulac (Oral Use) PO 20 gm TID GUERDA Administration Lorazepam 1 mg 01/25/20 18:42 Ativan Injection - IVPUSH Q6H PRN ANXIETY Spironolactone 50 mg 01/28/20 17:00 01/29/20 09:52 Aldactone - PO 50 mg DAILY GUERDA Administration Thiamine HCl 200 mg 01/25/20 10:00 01/29/20 09:54 Vitamin B1 - PO 200 mg DAILY GUERDA Administration ASSESSMENT/PLAN: Problem List - Problems (1) Cirrhosis of liver Assessment/Plan: started on lactulose bid, repeat ammonia levels on spironolactone patient with chronic etoh abuse, but without signs of withdrawal at present. see ciwa On thiamine and multivitamin in process to be transferred to [facility] liver center if approved. GI following Nephrology following Code(s): K74.60 - UNSPECIFIED CIRRHOSIS OF LIVER Qualifiers: Hepatic cirrhosis type: alcoholic cirrhosis Ascites presence: unspecified Qualified Code(s): K70.30 - Alcoholic cirrhosis of liver without ascites (2) Cellulitis Assessment/Plan: Celluliits of bilateral buttocks on Zosyn per ID Wound care Code(s): L03.90 - CELLULITIS, UNSPECIFIED (3) ETOH abuse Assessment/Plan: No signs of withdrawal on exam patient calm, cooperative Code(s): F10.10 - ALCOHOL ABUSE, UNCOMPLICATED (4) Anemia Code(s): D64.9 - ANEMIA, UNSPECIFIED (5) Jaundice Code(s): R17 - UNSPECIFIED JAUNDICE (6) Sepsis Assessment/Plan: mild tachycardia, leukocytosis and hypotension on zosyn for buttocks cellulitis monitor labs, vitals Code(s): A41.9 - SEPSIS, UNSPECIFIED ORGANISM (7) Hypokalemia Assessment/Plan: repleted, repeat this afternoon Code(s): E87.6 - HYPOKALEMIA (8) GUILLERMO (acute kidney injury) Assessment/Plan: elevated creatinine, monitor daily labs followed by nephrology Code(s): N17.9 - ACUTE KIDNEY FAILURE, UNSPECIFIED (9) DVT prophylaxis Code(s): Z29.9 - ENCOUNTER FOR PROPHYLACTIC MEASURES, UNSPECIFIED Visit type - Emergency Visit Emergency Visit: Yes ED Registration Date: 01/24/20 Care time: The patient presented to the Emergency Department on the above date and was hospitalized for further evaluation of their emergent condition. - New Patient This patient is new to me today: Yes Date on this admission: 01/29/20 - Critical Care Critical Care patient: No - Discharge Referral Referred to [facility] Med P.C.: No
[2020-01-29] MEDS: SODIUM CHLORIDE 1,000 ML IV SCH (12:17)
--- NOTE | 2020-01-29 14:28 | PN ---
Progress Note, Physician History of Present Illness: Pt seen and examined at bedside. He is awake and alert. He denies shortness of breath. - Current Medication List Current Medications: Active Medications Folic Acid (Folic Acid -) 1 mg PO DAILY GUERDA Last Admin: 01/29/20 09:52 Dose: 1 mg Documented by: Heparin Sodium (Porcine) (Heparin -) 5,000 unit SQ BID GUERDA Last Admin: 01/29/20 09:54 Dose: 5,000 unit Documented by: Piperacillin Sod/Tazobactam (Sod 3.375 gm/ Dextrose) 50 mls @ 100 mls/hr IVPB Q8H-IV GUERDA; Protocol Last Admin: 01/29/20 09:54 Dose: 100 mls/hr Documented by: Sodium Chloride (Normal Saline -) 1,000 mls @ 100 mls/hr IV ASDIR GUERDA Last Admin: 01/29/20 12:17 Dose: 100 mls/hr Documented by: Lactulose (Cephulac (Oral Use)) 20 gm PO TID GUERDA Last Admin: 01/29/20 13:36 Dose: 20 gm Documented by: Lorazepam (Ativan Injection -) 1 mg IVPUSH Q6H PRN PRN Reason: ANXIETY Thiamine HCl (Vitamin B1 -) 200 mg PO DAILY [facility] Last Admin: 01/29/20 09:54 Dose: 200 mg Documented by: - Objective Vital Signs: Vital Signs Temperature 98.2 F 01/29/20 10:00 Pulse Rate 82 01/29/20 10:00 Respiratory Rate 18 01/29/20 10:00 Blood Pressure 72/34 L 01/29/20 10:00 O2 Sat by Pulse Oximetry (%) 96 01/29/20 10:00 Constitutional: Yes: Calm Eyes: Yes: Sclera Icterus Cardiovascular: Yes: S1, S2 Respiratory: Yes: CTA Bilaterally Gastrointestinal: Yes: Soft, Ascites Genitourinary: Yes: WNL Musculoskeletal: Yes: WNL Edema: No Neurological: Yes: Oriented Psychiatric: Yes: Oriented Labs: CBC, BMP 01/29/20 07:38 01/29/20 07:38 INR, PTT INR 3.00 (0.83-1.09) H 01/29/20 07:38 Assessment/Plan Current Medications Generic Name Dose Route Start Last Admin Trade Name Freq PRN Reason Stop Dose Admin Folic Acid 1 mg 01/26/20 10:00 01/29/20 09:52 Folic Acid - PO 1 mg DAILY GUERDA Administration Heparin Sodium (Porcine) 5,000 unit 01/28/20 22:00 01/29/20 09:54 Heparin - SQ 5,000 unit BID GUERDA Administration Piperacillin Sod/Tazobactam 50 mls @ 100 mls/hr 01/28/20 18:00 01/29/20 09:54 Sod 3.375 gm/ Dextrose IVPB 100 mls/hr Q8H-IV GUERDA Administration Protocol Sodium Chloride 1,000 mls @ 100 mls/hr 01/29/20 11:45 01/29/20 12:17 Normal Saline - IV 100 mls/hr ASDIR GUERDA Administration Lactulose 20 gm 01/25/20 14:00 01/29/20 13:36 Cephulac (Oral Use) PO 20 gm TID GUERDA Administration Lorazepam 1 mg 01/25/20 18:42 Ativan Injection - IVPUSH Q6H PRN ANXIETY Thiamine HCl 200 mg 01/25/20 10:00 01/29/20 09:54 Vitamin B1 - PO 200 mg DAILY GUERDA Administration Impression 1. liver cirrhosis 2. etoh abuse 3. htn 4. epilepsy 5. ascites 6. [place] Plan - renal function worsening - hold aldactone - replace potassium - gi follow up - monitor lytes - check urine sodium - will follow
[2020-01-29 15:25] LABS: EPI CELLS 6 /uL (0-25.1); HYALINE CASTS 2 /uL (0-3.1); URINE APPEARANCE CLOUDY; URINE BILIRUBIN 3+ (NEGATIVE); URINE COLOR DK YELLOW; URINE GLUCOSE (UA) NEGATIVE (NEGATIVE); URINE KETONE TRACE (NEGATIVE); URINE LEUK ESTERASE TRACE (NEGATIVE); URINE NITRITE POSITIVE (NEGATIVE); URINE PROTEIN TRACE (NEGATIVE); URINE RBC 4 /uL (0-23.9); URINE WBC 7 /uL (0-25.8)
--- NOTE | 2020-01-29 16:03 | PN.GI ---
GI Progress Note Subjective: No being transferred to [facility]. Transfer declined by receiving hospital Liver chemistries slowly improving No overt bleeding - Objective Vital Signs: Vital Signs Temperature 98.0 F 01/29/20 14:00 Pulse Rate 85 01/29/20 14:00 Respiratory Rate 18 01/29/20 14:00 Blood Pressure 91/52 L 01/29/20 14:00 O2 Sat by Pulse Oximetry (%) 96 01/29/20 14:00 Constitutional: Calm Eyes: Yes: Sclera Icterus Cardiovascular: Yes: Regular Rate and Rhythm Respiratory: Yes: CTA Bilaterally Gastrointestinal Inspection: No: Distention ...Auscultate: Yes: Normoactive Bowel Sounds ...Palpate: Yes: Hepatomegaly, Soft. No: Tenderness Edema: No (No LE edema) Neurological: No: [facility] Labs: CBC, BMP 01/29/20 07:38 01/29/20 14:40 INR, PTT INR 3.00 (0.83-1.09) H 01/29/20 07:38 Problem List - Problems (1) Alcoholic hepatitis without ascites Assessment/Plan: Slow improvement in LFTs Discussed EGD +/- Banding to exclude varices as well as to evaluate anemia. Discussed potential risks of the procedure with Mr. Hicks like but not limited to bleeding, perforation requiring surgery to repair, infection, sedation medication effects all of which could be life threatening. He has agreed to the procedure. NPO after midnight except meds Correct lytes Consider heme evaluation Code(s): K70.10 - ALCOHOLIC HEPATITIS WITHOUT ASCITES
[2020-01-29 16:13] LABS: URINE CRYSTALS BILIRUBIN CRYSTALS /hpf
[2020-01-29] MEDS ORDERED: PHYTONADIONE 10 MG/1 ML AMP SQ ONE (19:42)
--- NOTE | 2020-01-29 19:48 | PN ---
Progress Note (short form) - Note Progress Note: Rise in INR noted. In setting of significant coaguloapthy without overt bleeding, deferring upper endoscopy at this time. Dosed vitamin K 10mg SC x 1 and will continue to treat acute liver decompensation from alcoholic hepatitis. if worsening parameters, would initiate prednisolone therapy. Problem List - Problems (1) Alcoholic hepatitis without ascites Code(s): K70.10 - ALCOHOLIC HEPATITIS WITHOUT ASCITES
[2020-01-30] MEDS ORDERED: DEXTROSE 5%-WATER - 50 ML IVPB ONE ×3 (01:00→18:45)
[2020-01-30] MEDS ORDERED: PIPERACILLIN/TAZOBACTAM 3.375 GM VIAL IVPB ONE ×3 (01:00→18:45)
[2020-01-30] MEDS: PIPERACILLIN/TAZOB 3.375 GM 3.375 GM in DEXTROSE 5%-WATER - 50 ML IVPB SCH ×3 (01:27→18:46)
[2020-01-30] MEDS: SODIUM CHLORIDE 1,000 ML IV SCH ×2 (02:37→12:00)
[2020-01-30] MEDS: LACTULOSE 20 GM/30 ML UDC (FOR ORAL USE ONLY) PO SCH ×3 (05:58→21:04)
[2020-01-30 08:55] LABS: BASO % 0.7 % (0-2.0); EOS % 2.5 % (0-4.5); HEMOGLOBIN 7.8 GM/dL (11.7-16.9); LYMPH % 9.7 % (8-40); MCH 37.9 pg (25.7-33.7); MEAN CELL VOLUME 111.3 fl (80-96); MEAN PLT VOLUME 7.8 fl (7.5-11.1); MONO % 13.1 % (3.8-10.2); PLATELET COUNT 140 K/MM3 (134-434); RBC 2.07 M/mm3 (4.00-5.60); RDW 14.4 % (11.9-15.9); WHITE BLOOD COUNT 10.6 K/mm3 (4.0-10.0)
[2020-01-30 09:00] LABS: INR 2.88 (0.83-1.09); PROTHROMBIN TIME (PATIENT) 34.3 SEC (9.7-13.0)
[2020-01-30 09:18] LABS: ALBUMIN 0.8 g/dl (3.4-5.0); BILIRUBIN,TOTAL 12.6 mg/dL (0.2-1); BLOOD UREA NITROGEN 7.8 mg/dL (7-18); CALCIUM 7.3 mg/dL (8.5-10.1); CREATININE 1.9 mg/dL (0.55-1.3); POTASSIUM 3.2 mmol/L (3.5-5.1); TOT PROT 7.6 g/dl (6.4-8.2)
[2020-01-30] MEDS ORDERED: POTASSIUM CHLORIDE TABS 20 MEQ TABLET.ER (FP) PO ONE (09:21)
[2020-01-30] MEDS: FOLIC ACID 1 MG TABLET (FP) PO SCH (09:35)
[2020-01-30] MEDS: THIAMINE HCL 100 MG TABLET (FP) PO SCH (09:35)
[2020-01-30] MEDS: HEPARIN NA (PORCINE) 5,000 UNITS/ML 1ML VIAL SQ SCH ×2 (09:36→21:04)
[2020-01-30] MEDS: ALBUMIN HUMAN 25% 100 ML VIAL IVPB SCH ×2 (10:41→16:35)
--- NOTE | 2020-01-30 12:16 | PN ---
Progress Note, Physician History of Present Illness: Pt seen and examined at bedside. He is awake and oriented. - Current Medication List Current Medications: Active Medications Albumin Human (Albumin Human 25% -) 25 gm IVPB Q6H GUERDA Stop: 01/30/20 15:31 Last Admin: 01/30/20 10:41 Dose: 25 gm Documented by: Folic Acid (Folic Acid -) 1 mg PO DAILY GUERDA Last Admin: 01/30/20 09:35 Dose: 1 mg Documented by: Heparin Sodium (Porcine) (Heparin -) 5,000 unit SQ BID GUERDA Last Admin: 01/30/20 09:36 Dose: 5,000 unit Documented by: Piperacillin Sod/Tazobactam (Sod 3.375 gm/ Dextrose) 50 mls @ 100 mls/hr IVPB Q8H-IV GUERDA; Protocol Last Admin: 01/30/20 09:34 Dose: 100 mls/hr Documented by: Sodium Chloride (Normal Saline -) 1,000 mls @ 100 mls/hr IV ASDIR [facility] Last Admin: 01/30/20 02:37 Dose: 100 mls/hr Documented by: Lactulose (Cephulac (Oral Use)) 20 gm PO TID [facility] Last Admin: 01/30/20 05:58 Dose: 20 gm Documented by: Thiamine HCl (Vitamin B1 -) 200 mg PO DAILY [facility] Last Admin: 01/30/20 09:35 Dose: 200 mg Documented by: - Objective Vital Signs: Vital Signs Temperature 98.1 F 01/30/20 06:00 Pulse Rate 85 01/30/20 06:00 Respiratory Rate 18 01/30/20 06:00 Blood Pressure 88/53 L 01/30/20 06:00 O2 Sat by Pulse Oximetry (%) 99 01/30/20 06:00 Constitutional: Yes: Calm Eyes: Yes: Sclera Icterus Cardiovascular: Yes: S1, S2 Respiratory: Yes: CTA Bilaterally Gastrointestinal: Yes: Normal Bowel Sounds, Soft Musculoskeletal: Yes: Muscle Weakness Edema: No Neurological: Yes: Oriented Psychiatric: Yes: Oriented Labs: CBC, BMP 01/30/20 08:10 01/30/20 08:10 INR, PTT INR 2.88 (0.83-1.09) H 01/30/20 08:10 Assessment/Plan Current Medications Generic Name Dose Route Start Last Admin Trade Name Freq PRN Reason Stop Dose Admin Albumin Human 25 gm 01/30/20 09:30 01/30/20 10:41 Albumin Human 25% - IVPB 01/30/20 15:31 25 gm Q6H GUERDA Administration Folic Acid 1 mg 01/26/20 10:00 01/30/20 09:35 Folic Acid - PO 1 mg DAILY GUERDA Administration Heparin Sodium (Porcine) 5,000 unit 01/28/20 22:00 01/30/20 09:36 Heparin - SQ 5,000 unit BID GUERDA Administration Piperacillin Sod/Tazobactam 50 mls @ 100 mls/hr 01/28/20 18:00 01/30/20 09:34 Sod 3.375 gm/ Dextrose IVPB 100 mls/hr Q8H-IV GUERDA Administration Protocol Sodium Chloride 1,000 mls @ 100 mls/hr 01/29/20 11:45 01/30/20 02:37 Normal Saline - IV 100 mls/hr ASDIR UGERDA Administration Lactulose 20 gm 01/25/20 14:00 01/30/20 05:58 Cephulac (Oral Use) PO 20 gm TID GUERDA Administration Thiamine HCl 200 mg 01/25/20 10:00 01/30/20 09:35 Vitamin B1 - PO 200 mg DAILY GUERDA Administration Impression 1. liver cirrhosis 2. etoh abuse 3. htn 4. epilepsy 5. ascites 6. [place] Plan - renal function worsening - urine sodium is low - will need to r/o hepatorenal - cont fluid/albumin challenge - GI follow up - replace potassium
--- NOTE | 2020-01-30 14:32 | PN.GI ---
GI Progress Note Subjective: no new complaints - doing okay today egd cancelled for inr of 2.88 no report of gi bleed - Objective Vital Signs: Vital Signs Temperature 98 F 01/30/20 10:00 Pulse Rate 79 01/30/20 10:00 Respiratory Rate 18 01/30/20 10:00 Blood Pressure 80/46 L 01/30/20 10:00 O2 Sat by Pulse Oximetry (%) 100 01/30/20 10:00 Constitutional: Well Nourished, No Distress, Calm Eyes: Yes: Sclera Icterus HENT: Yes: WNL Neck: Yes: WNL Cardiovascular: Yes: WNL, Regular Rate and Rhythm Respiratory: Yes: WNL, Regular, CTA Bilaterally Gastrointestinal Inspection: Yes: WNL ...Auscultate: Yes: Normoactive Bowel Sounds Extremities: Yes: WNL Labs: CBC, BMP 01/30/20 08:10 01/30/20 08:10 INR, PTT INR 2.88 (0.83-1.09) H 01/30/20 08:10 Problem List - Problems (1) Alcoholic hepatitis without ascites Assessment/Plan: continue present medical regimen ; liver tests improving monitor h/h / lft / inr daily while hospitalized c/w lactulose avoid nsaid diagnostic egd once inr acceptable for endoscopic procedures Code(s): K70.10 - ALCOHOLIC HEPATITIS WITHOUT ASCITES (2) Anemia Code(s): D64.9 - ANEMIA, UNSPECIFIED (3) Cirrhosis of liver Code(s): K74.60 - UNSPECIFIED CIRRHOSIS OF LIVER Qualifiers: Hepatic cirrhosis type: alcoholic cirrhosis Ascites presence: unspecified Qualified Code(s): K70.30 - Alcoholic cirrhosis of liver without ascites (4) ETOH abuse Code(s): F10.10 - ALCOHOL ABUSE, UNCOMPLICATED
--- NOTE | 2020-01-30 15:54 | PN ---
Physical Exam: SUBJECTIVE: Patient seen and examined at the bedside. He tells me he feels well and not in any pain. He admits to drinking apx 6 beers during the day and more with dinner but drinks more on the weekends He lives alone He agrees to go to [facility] for liver evaluation. A transfer to [facility] was initiated, and patient accepted (Dr. Martin, accepting physician), however, I spoke to Dr. Batres who is the sales administrator and steam clothes press operator of transfer at [facility] [phone] Turner is asking for a safe discharge plan before accepting patient to [facility] vs patient following outpatient. I discussed with Dr. Turner that patient does not qualify for rehab (ambulated 300 ft+) and the option at this time is to send him home. I discussed that I would like patient to be transferred to [facility] from [facility] because patient is in liver failure and patient will unlikely follow up if not transferred. Patient is currently uninsured and is unable to attend rehab even if he qualified. However, [facility] will not accept fully unless a discharge plan is in place. Discussed with SW. I called PCP listed on file, Dr. Moraes office and they do not see Mr. Hicks. Therefore Mr Hicks will need referral to a clinic ([facility]) or [facility] on discharge. OBJECTIVE: Patient is a 59 year-old man with a past medical history of HTN, ETOH abuse, and seizure disorder not on meds, admitted for decompensated liver injury and jaundice. He is peding transfer to [facility] liver center if accepted. PHYSICAL EXAM: Vital Signs Period Temp Pulse Resp BP Sys/Franco Pulse Ox Last 24 Hr 98 F-99.0 F 79-85 18-18 80-101/46-69 97-100 GENERAL: The patient is awake, alert, in no acute distress. generalized jaundice - speech ranges between clear and garbled HEAD: Normal with no signs of trauma. EYES: PERRL, extraocular movements intact, sclera anicteric, conjunctiva clear. No ptosis. ENT: Ears normal, nares patent, oropharynx clear without exudates, moist mucous membranes. NECK: Trachea midline, full range of motion, supple. LUNGS: Breath sounds equal, clear to auscultation bilaterally HEART: Regular rate and rhythm, S1, S2 without murmur, rub or gallop. ABDOMEN: soft mildly distended, + bowel sounds EXTREMITIES: no edema. NEUROLOGICAL: Normal speech, gait not observed. PSYCH: Normal mood, normal affect. SKIN: generalized jaundice Laboratory Results - last 24 hr 01/29/20 01/29/20 01/30/20 14:15 15:50 08:10 WBC 10.6 H RBC 2.07 L Hgb 7.8 L Hct 23.0 L MCV 111.3 H MCH 37.9 H MCHC 34.0 RDW 14.4 Plt Count 140 MPV 7.8 Absolute Neuts (auto) 7.8 Neutrophils % 74.0 Lymphocytes % 9.7 Monocytes % 13.1 H Eosinophils % 2.5 Basophils % 0.7 Nucleated RBC % 0 PT with INR INR Sodium Potassium Chloride Carbon Dioxide Anion Gap BUN Creatinine Est GFR (CKD-EPI)AfAm Est GFR (CKD-EPI)NonAf Random Glucose Calcium Magnesium Total Bilirubin AST ALT Alkaline Phosphatase Total Protein Albumin Urine Crystals (Auto) Bilirubin crystals Ur Random Creatinine 206.0 H Ur Random Sodium < 18 L Ur Random Potassium 64.0 Ur Random Chloride 13 L Blood Type Antibody Screen 01/30/20 01/30/20 01/30/20 08:10 08:10 08:10 WBC RBC Hgb Hct MCV MCH MCHC RDW Plt Count MPV Absolute Neuts (auto) Neutrophils % Lymphocytes % Monocytes % Eosinophils % Basophils % Nucleated RBC % PT with INR 34.30 H INR 2.88 H Sodium 137 Potassium 3.2 L Chloride 107 Carbon Dioxide 22 Anion Gap 7 L BUN 7.8 Creatinine 1.9 H Est GFR (CKD-EPI)AfAm 44.37 Est GFR (CKD-EPI)NonAf 38.28 Random Glucose 78 Calcium 7.3 L Magnesium 2.0 Total Bilirubin 12.6 H AST 113 H ALT 30 Alkaline Phosphatase 141 H Total Protein 7.6 Albumin 0.8 L Urine Crystals (Auto) Ur Random Creatinine Ur Random Sodium Ur Random Potassium Ur Random Chloride Blood Type A POSITIVE Antibody Screen Negative Active Medications Generic Name Dose Route Start Last Admin Trade Name Freq PRN Reason Stop Dose Admin Folic Acid 1 mg 01/26/20 10:00 01/30/20 09:35 Folic Acid - PO 1 mg DAILY GUERDA Administration Heparin Sodium (Porcine) 5,000 unit 01/28/20 22:00 01/30/20 09:36 Heparin - SQ 5,000 unit BID GUERDA Administration Piperacillin Sod/Tazobactam 50 mls @ 100 mls/hr 01/28/20 18:00 01/30/20 09:34 Sod 3.375 gm/ Dextrose IVPB 100 mls/hr Q8H-IV GUERDA Administration Protocol Sodium Chloride 1,000 mls @ 100 mls/hr 01/29/20 11:45 01/30/20 12:00 Normal Saline - IV 100 mls/hr ASDIR GUERDA Administration Lactulose 20 gm 01/25/20 14:00 01/30/20 13:46 Cephulac (Oral Use) PO 20 gm TID GUERDA Administration Thiamine HCl 200 mg 01/25/20 10:00 01/30/20 09:35 Vitamin B1 - PO 200 mg DAILY GUERDA Administration ASSESSMENT/PLAN: Problem List - Problems (1) Cirrhosis of liver Assessment/Plan: started on lactulose bid, repeat ammonia levels at 42 patent is awake and alert on spironolactone patient with chronic etoh abuse, but without signs of withdrawal at present. On thiamine and multivitamin in process to be transferred to [facility] liver center if approved. GI following Nephrology following Code(s): K74.60 - UNSPECIFIED CIRRHOSIS OF LIVER Qualifiers: Hepatic cirrhosis type: alcoholic cirrhosis Ascites presence: unspecified Qualified Code(s): K70.30 - Alcoholic cirrhosis of liver without ascites (2) Cellulitis Assessment/Plan: Celluliits of bilateral buttocks on Zosyn per ID Wound care Code(s): L03.90 - CELLULITIS, UNSPECIFIED (3) ETOH abuse Assessment/Plan: No signs of withdrawal on exam patient calm, cooperative Code(s): F10.10 - ALCOHOL ABUSE, UNCOMPLICATED (4) Anemia Code(s): D64.9 - ANEMIA, UNSPECIFIED (5) Jaundice Code(s): R17 - UNSPECIFIED JAUNDICE (6) Sepsis Assessment/Plan: mild tachycardia, leukocytosis and hypotension on zosyn for buttocks cellulitis monitor labs, vitals Code(s): A41.9 - SEPSIS, UNSPECIFIED ORGANISM (7) Hypokalemia Assessment/Plan: repleted Code(s): E87.6 - HYPOKALEMIA (8) GUILLERMO (acute kidney injury) Assessment/Plan: elevated creatinine, monitor daily labs followed by nephrology Code(s): N17.9 - ACUTE KIDNEY FAILURE, UNSPECIFIED (9) DVT prophylaxis Assessment/Plan: heparin bid Code(s): Z29.9 - ENCOUNTER FOR PROPHYLACTIC MEASURES, UNSPECIFIED Visit type - Emergency Visit Emergency Visit: Yes ED Registration Date: 01/24/20 Care time: The patient presented to the Emergency Department on the above date and was hospitalized for further evaluation of their emergent condition. - New Patient This patient is new to me today: No - Critical Care Critical Care patient: No - Discharge Referral Referred to [facility] Med P.C.: No
[2020-01-30] MEDS ORDERED: PT OWN MED DRAWER 7, Y5N ONE (16:31)
--- NOTE | 2020-01-30 16:59 | CONSULT ---
Consult Consult Specialty:: heme Reason for Consultation:: "hypercoags/etoh" - History of Present Illness Chief Complaint: pt adm w weakness, fatigue History of Present Illness: 59 yom adm w constitutional sxs. Bkd EtOH-cirrhosis. No recent f/u w physicians. Found to have decomp liver failure, buttocks celluliti egd planned to assess for varices in pt w macrocytic anemia, iron def, cirrhosis; INR elev, plt nl range He denies h/o bleeding/bruising - History Source History Provided By: Patient, Medical Record Limitations to Obtaining History: Poor Historian - Past Medical History Cardio/Vascular: Yes: HTN Additional Medical History: Denies - Past Surgical History Additional Surgical History: Denies - Alcohol/Substance Use Hx Alcohol Use: Yes (daily) History of Substance Use: reports: None - Smoking History Smoking history: Never smoked Have you smoked in the past 12 months: No Aproximately how many cigarettes per day: 0 If you are a former smoker, when did you quit?: 10/2012 - Social History Usual Living Arrangement: Alone ADL: Independent History of Recent Travel: No Home Medications - Allergies Allergies/Adverse Reactions: Allergies Allergy/AdvReac Type Severity Reaction Status Date / Time No Known Allergies Allergy Verified 01/24/20 09:35 - Home Medications Home Medications: Ambulatory Orders NK [No Known Home Medication] 01/30/14 Family Medical History Family History: Denies Other Family History: Father: : "Cancer". Mother: : s/p fall @ 83. No family history of colon cancer, liver disease. 1 daughter, healthy Physical Exam Vital Signs: Vital Signs Temperature 98.8 F 01/30/20 14:00 Pulse Rate 79 01/30/20 14:00 Respiratory Rate 18 01/30/20 14:00 Blood Pressure 88/53 L 01/30/20 14:00 O2 Sat by Pulse Oximetry (%) 98 01/30/20 14:00 Constitutional: Yes: Calm Eyes: Yes: Sclera Icterus HENT: Yes: WNL Neck: Yes: Supple Cardiovascular: Yes: Regular Rate and Rhythm Respiratory: Yes: CTA Bilaterally Gastrointestinal: Yes: Soft, Distention, Hepatomegaly Edema: No Labs: CBC, BMP 01/30/20 08:10 01/30/20 08:10 Assessment/Plan liver failure w coagulopathy and possib vit K def s/p vit K dose w improved PT can cont w 2 more doses; consider FFP prior to procedure pend labs and if bleeding
[2020-01-31] MEDS ORDERED: PIPERACILLIN/TAZOBACTAM 3.375 GM VIAL IVPB ONE ×2 (00:52→09:23)
[2020-01-31] MEDS ORDERED: DEXTROSE 5%-WATER - 50 ML IVPB ONE ×2 (00:52→09:23)
[2020-01-31] MEDS: SODIUM CHLORIDE 1,000 ML IV SCH ×2 (01:23→13:51)
[2020-01-31] MEDS: PIPERACILLIN/TAZOB 3.375 GM 3.375 GM in DEXTROSE 5%-WATER - 50 ML IVPB SCH ×3 (01:23→19:41)
--- NOTE | 2020-01-31 03:52 | HOSP ---
Subjective - Review of Symptoms Events since last encounter: hospitalist encounter notified by the RN, the patient is having CP, was asked to assess Orders placed : EKG stat Troponin stat Cardiovascular: Yes: Chest Pain Physical Examination Vital Signs: Vital Signs Temperature 98.1 F 01/31/20 02:00 Pulse Rate 81 01/31/20 02:00 Respiratory Rate 18 01/31/20 02:00 Blood Pressure 88/50 L 01/31/20 02:00 O2 Sat by Pulse Oximetry (%) 98 01/31/20 02:00 Constitutional: Yes: Mild Distress Eyes: Yes: Conjunctiva Clear, PERRL, Sclera Icterus HENT: Yes: Atraumatic, Normocephalic Neck: Yes: Supple, Trachea Midline Cardiovascular: Yes: Regular Rate and Rhythm, S1, S2 Respiratory: Yes: CTA Bilaterally Gastrointestinal: Yes: Normal Bowel Sounds, Soft, Distention ...Rectal Exam: Yes: Deferred Musculoskeletal: Yes: WNL Edema: No Peripheral Pulses WNL: Yes Neurological: Yes: Alert, Oriented, Cran Nerves II-XII Intact ...Motor Strength: WNL Psychiatric: Yes: Alert, Oriented Labs: CBC, BMP 01/30/20 08:10 01/30/20 08:10 Hospitalist Encounter Assessment: Patient is a 59 year-old man with a past medical history of HTN, ETOH abuse, and seizure disorder not on meds, admitted for decompensated liver injury and jaundice. He is pending transfer to [facility] liver center if accepted. Outcome: EKG- NSR with ST and T wave abnormality- no change compared to prior study Troponin I - < 0.02 Patient reports CP resolved, resting comfortably at bedside Will continue to monitor, MAREK Smith to resume care in am
[2020-01-31] MEDS: LACTULOSE 20 GM/30 ML UDC (FOR ORAL USE ONLY) PO SCH ×3 (05:16→21:45)
[2020-01-31 09:19] LABS: EOS % 3.9 % (0-4.5); HEMATOCRIT 20.1 % (35.4-49); LYMPH % 10.9 % (8-40); MCH 38.1 pg (25.7-33.7); MCHC 34.2 g/dl (32.0-35.9); MEAN CELL VOLUME 111.4 fl (80-96); MEAN PLT VOLUME 7.8 fl (7.5-11.1); MONO % 15.1 % (3.8-10.2); NEUT % 69.1 % (42.8-82.8); PLATELET COUNT 109 K/MM3 (134-434); RDW 14.5 % (11.9-15.9); WHITE BLOOD COUNT 7.8 K/mm3 (4.0-10.0)
[2020-01-31] MEDS: HEPARIN NA (PORCINE) 5,000 UNITS/ML 1ML VIAL SQ SCH (09:25)
[2020-01-31] MEDS: THIAMINE HCL 100 MG TABLET (FP) PO SCH (09:25)
[2020-01-31] MEDS: FOLIC ACID 1 MG TABLET (FP) PO SCH (09:25)
[2020-01-31 09:30] LABS: HEMOGLOBIN 6.9 GM/dL (11.7-16.9)
[2020-01-31 09:52] LABS: ALBUMIN 1.3 g/dl (3.4-5.0); BILIRUBIN,TOTAL 13.5 mg/dL (0.2-1); BLOOD UREA NITROGEN 6.9 mg/dL (7-18); CALCIUM 7.7 mg/dL (8.5-10.1); CREATININE 1.7 mg/dL (0.55-1.3); MAGNESIUM 1.9 mg/dL (1.8-2.4); POTASSIUM 3.1 mmol/L (3.5-5.1); TOT PROT 6.7 g/dl (6.4-8.2)
[2020-01-31 10:41] LABS: ANISOCYTOSIS 2+; MACROCYTOSIS 2+; PLATELET ESTIMATE DECREASED
[2020-01-31] MEDS ORDERED: POTASSIUM CHLORIDE ORAL LIQUID 20 MEQ/15 ML PO ONE (12:00)
--- NOTE | 2020-01-31 12:37 | PN.GI ---
GI Progress Note Subjective: States having had episode of left sided chest pain with shortness of breath overnight No abdominal pain No rectal bleeding - Objective Vital Signs: Vital Signs Temperature 98.8 F 01/31/20 07:00 Pulse Rate 78 01/31/20 07:00 Respiratory Rate 18 01/31/20 07:00 Blood Pressure 87/48 L 01/31/20 07:00 O2 Sat by Pulse Oximetry (%) 95 01/31/20 07:00 Constitutional: Calm Eyes: Yes: Sclera Icterus Cardiovascular: Yes: Regular Rate and Rhythm. No: Murmur Respiratory: Yes: CTA Bilaterally Gastrointestinal Inspection: Yes: Hernia (umbilical hernia). No: Distention ...Auscultate: Yes: Normoactive Bowel Sounds ...Palpate: Yes: Hepatomegaly, Soft. No: Splenomegaly, Tenderness ...Percussion: No: Tympanitic Edema: No (No LE edema) Neurological: Yes: Alert, Oriented. No: Asterixis, Tremors Labs: CBC, BMP 01/31/20 08:45 01/31/20 08:45 INR, PTT INR 2.88 (0.83-1.09) H 01/30/20 08:10 Problem List - Problems (1) Alcoholic hepatitis without ascites Assessment/Plan: Clinically improved. Dwindling H/H / platelets without overt bleeding Advise: Repeat PT/INR Hematology evaluation. exclude hemolysis Keep Hgb >7 Initiated prednisolone 40mg once daily Monitor daily PT/INR, Liver chemistries Monitor mental status Evaluation of chest pain per primary team Code(s): K70.10 - ALCOHOLIC HEPATITIS WITHOUT ASCITES
[2020-01-31] MEDS ORDERED: SODIUM CHLORIDE 1,000 ML IV SCH (13:34)
[2020-01-31] MEDS ORDERED: PT OWN MED DRAWER 7, Y5N ONE ×2 (13:55→15:08)
[2020-01-31] MEDS ORDERED: SODIUM CHLORIDE 1,000 ML with POTASSIUM CHLORIDE 10 MEQ IVPB SCH (14:46)
--- NOTE | 2020-01-31 14:46 | PN ---
Progress Note, Physician History of Present Illness: Pt seen and examined at bedside. He is awake and appears comfortable. - Current Medication List Current Medications: Active Medications Folic Acid (Folic Acid -) 1 mg PO DAILY GUERDA Last Admin: 01/31/20 09:25 Dose: 1 mg Documented by: Piperacillin Sod/Tazobactam (Sod 3.375 gm/ Dextrose) 50 mls @ 100 mls/hr IVPB Q8H-IV GUERDA; Protocol Last Admin: 01/31/20 09:25 Dose: 100 mls/hr Documented by: Sodium Chloride (Normal Saline -) 1,000 mls @ 125 mls/hr IV ASDIR GUERDA Lactulose (Cephulac (Oral Use)) 20 gm PO TID GUERDA Last Admin: 01/31/20 14:00 Dose: 20 gm Documented by: Prednisolone Sodium Phosphate (Orapred (15 Mg/5 Ml) Oral Solution -) 40 mg PO DAILY GUERDA Thiamine HCl (Vitamin B1 -) 200 mg PO DAILY [facility] Last Admin: 01/31/20 09:25 Dose: 200 mg Documented by: - Objective Vital Signs: Vital Signs Temperature 98.4 F 01/31/20 09:00 Pulse Rate 76 01/31/20 09:00 Respiratory Rate 19 01/31/20 09:00 Blood Pressure 84/43 L 01/31/20 09:00 O2 Sat by Pulse Oximetry (%) 94 L 01/31/20 09:00 Constitutional: Yes: Calm Eyes: Yes: Sclera Icterus HENT: Yes: Atraumatic Cardiovascular: Yes: S1, S2 Respiratory: Yes: CTA Bilaterally Gastrointestinal: Yes: Normal Bowel Sounds, Soft Genitourinary: Yes: WNL Musculoskeletal: Yes: WNL Edema: No Integumentary: Yes: Jaundice Neurological: Yes: Oriented Psychiatric: Yes: Oriented Labs: CBC, BMP 01/31/20 08:45 01/31/20 08:45 INR, PTT INR 2.88 (0.83-1.09) H 01/30/20 08:10 Assessment/Plan Current Medications Generic Name Dose Route Start Last Admin Trade Name Freq PRN Reason Stop Dose Admin Albumin Human 25 gm 01/31/20 14:45 Albumin Human 25% IVPB 01/31/20 18:46 Q4H GUERDA Folic Acid 1 mg 01/26/20 10:00 01/31/20 09:25 Folic Acid - PO 1 mg DAILY GUERDA Administration Piperacillin Sod/Tazobactam 50 mls @ 100 mls/hr 01/28/20 18:00 01/31/20 09:25 Sod 3.375 gm/ Dextrose IVPB 100 mls/hr Q8H-IV GUERDA Administration Protocol Sodium Chloride 1,000 mls @ 125 mls/hr 01/31/20 13:34 Normal Saline - IV ASDIR GUERDA Lactulose 20 gm 01/25/20 14:00 01/31/20 14:00 Cephulac (Oral Use) PO 20 gm TID GUERDA Administration Prednisolone Sodium Phosphate 40 mg 01/31/20 14:00 Orapred (15 Mg/5 Ml) Oral Solution - PO DAILY GUERDA Thiamine HCl 200 mg 01/25/20 10:00 01/31/20 09:25 Vitamin B1 - PO 200 mg DAILY GUERDA Administration Impression 1. liver cirrhosis 2. etoh abuse 3. htn 4. epilepsy 5. ascites 6. [place] Plan - renal function improving - will give albumin again today - GI input appreciated - cont fluid/albumin challenge - replace potassium
--- NOTE | 2020-01-31 15:18 | PN ---
Physical Exam: SUBJECTIVE: Patient seen and examined at the bedside. in no acute distress, reports loose stools three times today. OBJECTIVE: He tells me he feels well and not in any pain. Overnight had chest pain and was evaluated by overnight team. No further chest pain or shortness of breath. His hmg dropped to 6.9 and will be getting 1 unit of prbc today. A transfer to [facility] was initiated, and patient accepted (Dr. Martin, accepting physician), however, I spoke to Dr. Batres again today who is the center administrator and residential manager of transfer at [facility] [phone] Turner asked for me to fax face sheet with all of patient information so that he can be followed in the community with Dr. Romero. Fax sent . A follow up appt at the liver center will be made by [facility] liver team as an outpatient. yesterday I called PCP listed on file, Dr. Moraes office and they do not see Mr. Hicks. Therefore Mr Hicks will need referral to a clinic ([facility]) or [facility] on discharge. to receive 1 unit of prbc today. OBJECTIVE: Patient is a 59 year-old man with a past medical history of HTN, ETOH abuse, and seizure disorder not on meds, admitted for decompensated liver injury and jaundice. Vital Signs Period Temp Pulse Resp BP Sys/Franco Pulse Ox Last 24 Hr 97.7 F-99.1 F 76-81 18-19 84-103/43-73 94-100 GENERAL: The patient is awake, alert, in no acute distress. generalized jaundice - speech ranges between clear and garbled HEAD: Normal with no signs of trauma. EYES: PERRL, extraocular movements intact, sclera anicteric, conjunctiva clear. No ptosis. ENT: Ears normal, nares patent, oropharynx clear without exudates, moist mucous membranes. NECK: Trachea midline, full range of motion, supple. LUNGS: Breath sounds equal, clear to auscultation bilaterally HEART: Regular rate and rhythm, S1, S2 without murmur, rub or gallop. ABDOMEN: soft mildly distended, + bowel sounds EXTREMITIES: no edema. NEUROLOGICAL: Normal speech, gait not observed. PSYCH: Normal mood, normal affect. SKIN: generalized jaundice Laboratory Results - last 24 hr 01/30/20 01/31/2001/30/20 08:10 04:00 08:45 WBC 7.8 RBC 1.80 L Hgb 6.9 L* Hct 20.1 L MCV 111.4 H MCH 38.1 H MCHC 34.2 RDW 14.5 Plt Count 109 L D MPV 7.8 Absolute Neuts (auto) 5.4 Neutrophils % 69.1 Lymphocytes % 10.9 Monocytes % 15.1 H Eosinophils % 3.9 Basophils % 1.0 Nucleated RBC % 0 Hypochromia 0 Platelet Estimate Decreased Polychromasia 0 Poikilocytosis 0 Anisocytosis 2+ Microcytosis 0 Macrocytosis 2+ Sodium Potassium Chloride Carbon Dioxide Anion Gap BUN Creatinine Est GFR (CKD-EPI)AfAm Est GFR (CKD-EPI)NonAf Random Glucose Calcium Magnesium Total Bilirubin AST ALT Alkaline Phosphatase Troponin I < 0.02 Total Protein Albumin Blood Type A POSITIVE Antibody Screen Negative Crossmatch See Detail 01/31/20 08:45 WBC RBC Hgb Hct MCV MCH MCHC RDW Plt Count MPV Absolute Neuts (auto) Neutrophils % Lymphocytes % Monocytes % Eosinophils % Basophils % Nucleated RBC % Hypochromia Platelet Estimate Polychromasia Poikilocytosis Anisocytosis Microcytosis Macrocytosis Sodium 140 Potassium 3.1 L Chloride 111 H Carbon Dioxide 21 Anion Gap 7 L BUN 6.9 L Creatinine 1.7 H Est GFR (CKD-EPI)AfAm 50.75 Est GFR (CKD-EPI)NonAf 43.79 Random Glucose 92 Calcium 7.7 L Magnesium 1.9 Total Bilirubin 13.5 H AST 90 H ALT 28 Alkaline Phosphatase 110 Troponin I Total Protein 6.7 Albumin 1.3 L Blood Type Antibody Screen Crossmatch Active Medications Generic Name Dose Route Start Last Admin Trade Name Freq PRN Reason Stop Dose Admin Albumin Human 25 gm 01/31/20 14:45 Albumin Human 25% IVPB 01/31/20 18:46 Q4H GUERDA Folic Acid 1 mg 01/26/20 10:00 01/31/20 09:25 Folic Acid - PO 1 mg DAILY GUERDA Administration Piperacillin Sod/Tazobactam 50 mls @ 100 mls/hr 01/28/20 18:00 01/31/20 09:25 Sod 3.375 gm/ Dextrose IVPB 100 mls/hr Q8H-IV GUERDA Administration Protocol Potassium Chloride 10 meq/ 1,005 mls @ 75 mls/hr 01/31/20 14:46 Sodium Chloride IVPB ASDIR GUERDA Lactulose 20 gm 01/25/20 14:00 01/31/20 14:00 Cephulac (Oral Use) PO 20 gm TID GUERDA Administration Prednisolone Sodium Phosphate 40 mg 01/31/20 14:00 Orapred (15 Mg/5 Ml) Oral Solution - PO DAILY GUERDA Thiamine HCl 200 mg 01/25/20 10:00 01/31/20 09:25 Vitamin B1 - PO 200 mg DAILY GUERDA Administration ASSESSMENT/PLAN: Problem List - Problems (1) Cirrhosis of liver Assessment/Plan: started on lactulose bid, repeat ammonia levels at 42 patent is awake and alert on spironolactone patient with chronic etoh abuse, but without signs of withdrawal at present. On thiamine and multivitamin in process to be transferred to [facility] liver center if approved. GI following Nephrology following Code(s): K74.60 - UNSPECIFIED CIRRHOSIS OF LIVER Qualifiers: Hepatic cirrhosis type: alcoholic cirrhosis Ascites presence: unspecified Qualified Code(s): K70.30 - Alcoholic cirrhosis of liver without ascites (2) Cellulitis Assessment/Plan: Celluliits of bilateral buttocks on Zosyn per ID Wound care Code(s): L03.90 - CELLULITIS, UNSPECIFIED (3) ETOH abuse Assessment/Plan: No signs of withdrawal on exam patient calm, cooperative Code(s): F10.10 - ALCOHOL ABUSE, UNCOMPLICATED (4) Anemia Assessment/Plan: for 1 unit of prbc today followed by GI no overt signs of bleeding will stop heparin send for stool for occult blood Code(s): D64.9 - ANEMIA, UNSPECIFIED (5) Jaundice Code(s): R17 - UNSPECIFIED JAUNDICE (6) Sepsis Assessment/Plan: mild tachycardia, leukocytosis and hypotension on zosyn for buttocks cellulitis monitor labs, vitals Code(s): A41.9 - SEPSIS, UNSPECIFIED ORGANISM (7) Hypokalemia Assessment/Plan: repleted Code(s): E87.6 - HYPOKALEMIA (8) GUILLERMO (acute kidney injury) Assessment/Plan: elevated creatinine, monitor daily labs followed by nephrology Code(s): N17.9 - ACUTE KIDNEY FAILURE, UNSPECIFIED (9) Chest pain Assessment/Plan: chest pain overnight, denies any further chest pain patient evaluated by night attending troponin negative at 0400, will repeat Code(s): R07.9 - CHEST PAIN, UNSPECIFIED (10) DVT prophylaxis Assessment/Plan: heparin bid Code(s): Z29.9 - ENCOUNTER FOR PROPHYLACTIC MEASURES, UNSPECIFIED Visit type - Emergency Visit Emergency Visit: Yes ED Registration Date: 01/24/20 Care time: The patient presented to the Emergency Department on the above date and was hospitalized for further evaluation of their emergent condition. - New Patient This patient is new to me today: No - Critical Care Critical Care patient: No - Discharge Referral Referred to [facility] No
[2020-01-31] MEDS: prednisoLONE SODIUM PHOSPHATE 15 MG/5 ML ORAL SOLN BOTTLE PO SCH (15:41)
[2020-01-31 16:56] LABS: INR 2.58 (0.83-1.09); PROTHROMBIN TIME (PATIENT) 30.7 SEC (9.7-13.0)
[2020-01-31] MEDS: ALBUMIN HUMAN 25% 12.5 GM/50 ML VIAL IVPB SCH ×2 (19:40→22:58)
[2020-01-31] MEDS ORDERED: POTASSIUM CHLORIDE 10 MEQ in SODIUM CHLORIDE 1,000 ML IVPB SCH (21:48)
[2020-02-01] MEDS ORDERED: PIPERACILLIN/TAZOBACTAM 3.375 GM VIAL IVPB ONE ×3 (00:59→18:37)
[2020-02-01] MEDS ORDERED: DEXTROSE 5%-WATER - 50 ML IVPB ONE ×3 (01:00→18:37)
[2020-02-01] MEDS: PIPERACILLIN/TAZOB 3.375 GM 3.375 GM in DEXTROSE 5%-WATER - 50 ML IVPB SCH ×3 (01:11→18:47)
[2020-02-01] MEDS: ALBUMIN HUMAN 25% 12.5 GM/50 ML VIAL IVPB SCH (03:07)
[2020-02-01] MEDS: LACTULOSE 20 GM/30 ML UDC (FOR ORAL USE ONLY) PO SCH ×3 (05:43→21:43)
[2020-02-01] MEDS ORDERED: PHYTONADIONE 10 MG/1 ML AMP SQ ONE (08:16)
[2020-02-01 08:45] LABS: BASO % 0.2 % (0-2.0); HEMATOCRIT 22.6 % (35.4-49); MCHC 35.3 g/dl (32.0-35.9); MEAN CELL VOLUME 107.6 fl (80-96); MEAN PLT VOLUME 8.5 fl (7.5-11.1); MONO % 6.2 % (3.8-10.2); NEUT % 84.6 % (42.8-82.8); PLATELET COUNT 122 K/MM3 (134-434); RDW 16.9 % (11.9-15.9); WHITE BLOOD COUNT 8.7 K/mm3 (4.0-10.0)
[2020-02-01 08:56] LABS: INR 2.51 (0.83-1.09); PROTHROMBIN TIME (PATIENT) 29.9 SEC (9.7-13.0)
[2020-02-01 09:17] LABS: ALBUMIN 1.5 g/dl (3.4-5.0); ALBUMIN 1.6 g/dl (3.4-5.0); BILIRUBIN,DIRECT 12.1 mg/dL (0.0-0.2); BLOOD UREA NITROGEN 8.4 mg/dL (7-18); CALCIUM 7.3 mg/dL (8.5-10.1); CREATININE 1.5 mg/dL (0.55-1.3); POTASSIUM 3.5 mmol/L (3.5-5.1)
[2020-02-01 09:19] LABS: TOT PROT 7.1 g/dl (6.4-8.2)
[2020-02-01 09:20] LABS: TOT PROT 7.2 g/dl (6.4-8.2)
[2020-02-01 09:30] LABS: BILIRUBIN,TOTAL 15.5 mg/dL (0.2-1)
[2020-02-01 09:31] LABS: BILIRUBIN,TOTAL 15.8 mg/dL (0.2-1)
[2020-02-01] MEDS ORDERED: PT OWN MED DRAWER 7, Y5N ONE (10:20)
[2020-02-01] MEDS: FOLIC ACID 1 MG TABLET (FP) PO SCH (10:29)
[2020-02-01] MEDS: prednisoLONE SODIUM PHOSPHATE 15 MG/5 ML ORAL SOLN BOTTLE PO SCH (10:29)
[2020-02-01] MEDS: THIAMINE HCL 100 MG TABLET (FP) PO SCH (10:30)
[2020-02-01 10:51] LABS: PLATELET ESTIMATE DECREASED
--- NOTE | 2020-02-01 11:24 | PN.GI ---
GI Progress Note Subjective: States feeling well No acute events No abdominal pain - Objective Vital Signs: Vital Signs Temperature 97.9 F 02/01/20 04:00 Pulse Rate 72 02/01/20 04:00 Respiratory Rate 18 02/01/20 04:00 Blood Pressure 87/56 L 02/01/20 04:00 O2 Sat by Pulse Oximetry (%) 96 02/01/20 04:00 Constitutional: Calm Eyes: Yes: Sclera Icterus Cardiovascular: Yes: Regular Rate and Rhythm Respiratory: Yes: CTA Bilaterally Gastrointestinal Inspection: Yes: Other (Softly protuberant) ...Auscultate: Yes: Normoactive Bowel Sounds ...Palpate: Yes: Hepatomegaly, Soft. No: Tenderness ...Percussion: No: Tympanitic Edema: No (No LE edema) Neurological: Yes: Alert, Oriented. No: Asterixis, Tremors Labs: CBC, BMP 02/01/20 07:40 02/01/20 07:40 INR, PTT INR 2.51 (0.83-1.09) H 02/01/20 07:40 Hepatic Panel Total Bilirubin 15.5 mg/dL (0.2-1) H* 02/01/20 07:40 Total Bilirubin 15.8 mg/dL (0.2-1) H* D 02/01/20 07:40 Direct Bilirubin 12.1 mg/dL (0.0-0.2) H 02/01/20 07:40 AST 81 U/L (15-37) H 02/01/20 07:40 AST 86 U/L (15-37) H 02/01/20 07:40 ALT 26 U/L (13-61) 02/01/20 07:40 ALT 28 U/L (13-61) 02/01/20 07:40 Alkaline Phosphatase 108 U/L (45-117) 02/01/20 07:40 Alkaline Phosphatase 109 U/L (45-117) 02/01/20 07:40 Albumin 1.5 g/dl (3.4-5.0) L 02/01/20 07:40 Albumin 1.6 g/dl (3.4-5.0) L 02/01/20 07:40 Problem List - Problems (1) Alcoholic hepatitis without ascites Assessment/Plan: Clinically improved Mentating well, no astreixis Rise in bilirubin Prednisolone initiated yesterday Monitor LFTs Ordered abdominal US to eval for ascites Code(s): K70.10 - ALCOHOLIC HEPATITIS WITHOUT ASCITES
--- NOTE | 2020-02-01 13:19 | PN ---
Progress Note, Physician History of Present Illness: Pt seen and examined at bedside. He is awake and appears comfortable. He feels that ascites is a little worse today. - Current Medication List Current Medications: Active Medications Folic Acid (Folic Acid -) 1 mg PO DAILY [facility] Last Admin: 02/01/20 10:29 Dose: 1 mg Documented by: Piperacillin Sod/Tazobactam (Sod 3.375 gm/ Dextrose) 50 mls @ 100 mls/hr IVPB Q8H-IV GUERDA; Protocol Last Admin: 02/01/20 10:30 Dose: 100 mls/hr Documented by: Potassium Chloride 10 meq/ (Sodium Chloride) 1,005 mls @ 75 mls/hr IVPB ASDIR GUERDA Last Admin: 01/31/20 23:37 Dose: 75 mls/hr Documented by: Lactulose (Cephulac (Oral Use)) 20 gm PO TID [facility] Last Admin: 02/01/20 05:43 Dose: 20 gm Documented by: Prednisolone Sodium Phosphate (Orapred (15 Mg/5 Ml) Oral Solution -) 40 mg PO DAILY [facility] Last Admin: 02/01/20 10:29 Dose: 40 mg Documented by: Thiamine HCl (Vitamin B1 -) 200 mg PO DAILY [facility] Last Admin: 02/01/20 10:30 Dose: 200 mg Documented by: - Objective Vital Signs: Vital Signs Temperature 97.7 F 02/01/20 08:00 Pulse Rate 78 02/01/20 08:00 Respiratory Rate 20 02/01/20 08:00 Blood Pressure 93/53 L 02/01/20 08:00 O2 Sat by Pulse Oximetry (%) 97 02/01/20 09:00 Constitutional: Yes: Calm Eyes: Yes: Sclera Icterus HENT: Yes: Atraumatic Neck: Yes: Supple Cardiovascular: Yes: S1, S2 Respiratory: Yes: CTA Bilaterally Gastrointestinal: Yes: Normal Bowel Sounds, Soft Genitourinary: Yes: WNL Musculoskeletal: Yes: WNL Edema: No Integumentary: Yes: Jaundice Neurological: Yes: Oriented Psychiatric: Yes: Oriented Labs: CBC, BMP 02/01/20 07:40 02/01/20 07:40 INR, PTT INR 2.51 (0.83-1.09) H 02/01/20 07:40 Assessment/Plan Current Medications Generic Name Dose Route Start Last Admin Trade Name Freq PRN Reason Stop Dose Admin Folic Acid 1 mg 01/26/20 10:00 02/01/20 10:29 Folic Acid - PO 1 mg DAILY GUERDA Administration Piperacillin Sod/Tazobactam 50 mls @ 100 mls/hr 01/28/20 18:00 02/01/20 10:30 Sod 3.375 gm/ Dextrose IVPB 100 mls/hr Q8H-IV GUERDA Administration Protocol Potassium Chloride 10 meq/ 1,005 mls @ 75 mls/hr 01/31/20 21:48 01/31/20 23:37 Sodium Chloride IVPB 75 mls/hr ASDIR GUERDA Administration Lactulose 20 gm 01/25/20 14:00 02/01/20 05:43 Cephulac (Oral Use) PO 20 gm TID GUERDA Administration Prednisolone Sodium Phosphate 40 mg 01/31/20 14:00 02/01/20 10:29 Orapred (15 Mg/5 Ml) Oral Solution - PO 40 mg DAILY GUERDA Administration Thiamine HCl 200 mg 01/25/20 10:00 02/01/20 10:30 Vitamin B1 - PO 200 mg DAILY GUERDA Administration Impression 1. liver cirrhosis 2. etoh abuse 3. htn 4. epilepsy 5. ascites 6. paris Plan - d/c fluids - renal function improving - will give albumin - evaluate for aldactone tomorrow - Gi input appreciated
[2020-02-01] MEDS: ALBUMIN HUMAN 25% 100 ML VIAL IVPB SCH ×2 (14:44→19:42)
--- NOTE | 2020-02-01 14:58 | PN ---
Physical Exam: SUBJECTIVE: Patient seen and examined, sitting up, in no acute distress. OBJECTIVE: Patient is a 59 year-old man with a past medical history of HTN, ETOH abuse, and seizure disorder not on meds, admitted for decompensated liver injury and jaundice. His bilirubin is 15 today. He will undergo an abdominal u/s today. Albumin to be started by nephrology. Vital Signs Period Temp Pulse Resp BP Sys/Franco Pulse Ox Last 24 Hr 97.7 F-98.5 F 72-80 18-20 87-107/53-68 96-99 GENERAL: The patient is awake, alert, in no acute distress. generalized jaundice - speech ranges between clear and garbled HEAD: Normal with no signs of trauma. EYES: PERRL, extraocular movements intact, sclera anicteric, conjunctiva clear. No ptosis. ENT: Ears normal, nares patent, oropharynx clear without exudates, moist mucous membranes. NECK: Trachea midline, full range of motion, supple. LUNGS: Breath sounds equal, clear to auscultation bilaterally HEART: Regular rate and rhythm, S1, S2 without murmur, rub or gallop. ABDOMEN: soft mildly distended, + bowel sounds EXTREMITIES: no edema. NEUROLOGICAL: Normal speech, gait not observed. PSYCH: Normal mood, normal affect. SKIN: generalized jaundice Laboratory Results - last 24 hr 01/30/20 01/31/20 01/31/20 08:10 15:30 23:00 WBC RBC Hgb Hct MCV MCH MCHC RDW Plt Count MPV Absolute Neuts (auto) Neutrophils % Lymphocytes % Monocytes % Eosinophils % Basophils % Nucleated RBC % Platelet Estimate PT with INR 30.70 H INR 2.58 H Sodium Potassium Chloride Carbon Dioxide Anion Gap BUN Creatinine Est GFR (CKD-EPI)AfAm Est GFR (CKD-EPI)NonAf Random Glucose Calcium Magnesium Total Bilirubin Direct Bilirubin AST ALT Alkaline Phosphatase Troponin I < 0.02 Total Protein Albumin Blood Type A POSITIVE Antibody Screen Negative Crossmatch See Detail 02/01/20 02/01/20 02/01/20 07:40 07:40 07:40 WBC 8.7 RBC 2.10 L Hgb 8.0 L Hct 22.6 L MCV 107.6 H MCH 38.0 H MCHC 35.3 RDW 16.9 H Plt Count 122 L MPV 8.5 Absolute Neuts (auto) 7.3 Neutrophils % 84.6 H D Lymphocytes % 9.0 Monocytes % 6.2 Eosinophils % 0.0 D Basophils % 0.2 Nucleated RBC % 0 Platelet Estimate Decreased PT with INR INR Sodium 139 Potassium 3.5 Chloride 112 H Carbon Dioxide 20 L Anion Gap 8 BUN 8.4 Creatinine 1.5 H Est GFR (CKD-EPI)AfAm 59.05 Est GFR (CKD-EPI)NonAf 50.95 Random Glucose 169 H Calcium 7.3 L Magnesium 2.0 Total Bilirubin 15.8 H* D 15.5 H* Direct Bilirubin 12.1 H AST 86 H 81 H ALT 28 26 Alkaline Phosphatase 109 108 Troponin I Total Protein 7.1 7.2 Albumin 1.5 L 1.6 L Blood Type Antibody Screen Crossmatch 02/01/20 07:40 WBC RBC Hgb Hct MCV MCH MCHC RDW Plt Count MPV Absolute Neuts (auto) Neutrophils % Lymphocytes % Monocytes % Eosinophils % Basophils % Nucleated RBC % Platelet Estimate PT with INR 29.90 H INR 2.51 H Sodium Potassium Chloride Carbon Dioxide Anion Gap BUN Creatinine Est GFR (CKD-EPI)AfAm Est GFR (CKD-EPI)NonAf Random Glucose Calcium Magnesium Total Bilirubin Direct Bilirubin AST ALT Alkaline Phosphatase Troponin I Total Protein Albumin Blood Type Antibody Screen Crossmatch Active Medications Generic Name Dose Route Start Last Admin Trade Name Freq PRN Reason Stop Dose Admin Albumin Human 25 gm 02/01/20 13:30 02/01/20 14:44 Albumin Human 25% - IVPB 02/01/20 19:31 25 gm Q6H GUERDA Administration Folic Acid 1 mg 01/26/20 10:00 02/01/20 10:29 Folic Acid - PO 1 mg DAILY GUERDA Administration Piperacillin Sod/Tazobactam 50 mls @ 100 mls/hr 01/28/20 18:00 02/01/20 10:30 Sod 3.375 gm/ Dextrose IVPB 100 mls/hr Q8H-IV GUERDA Administration Protocol Lactulose 20 gm 01/25/20 14:00 02/01/20 13:23 Cephulac (Oral Use) PO 20 gm TID GUERDA Administration Prednisolone Sodium Phosphate 40 mg 01/31/20 14:00 02/01/20 10:29 Orapred (15 Mg/5 Ml) Oral Solution - PO 40 mg DAILY GUERDA Administration Thiamine HCl 200 mg 01/25/20 10:00 02/01/20 10:30 Vitamin B1 - PO 200 mg DAILY GUERDA Administration ASSESSMENT/PLAN: Problem List - Problems (1) Cirrhosis of liver Assessment/Plan: started on lactulose bid, repeat ammonia levels at 42 patent is awake and alert on spironolactone patient with chronic etoh abuse, but without signs of withdrawal at present. On thiamine and multivitamin patient will received albumbin for abdominal u/s today Code(s): K74.60 - UNSPECIFIED CIRRHOSIS OF LIVER Qualifiers: Hepatic cirrhosis type: alcoholic cirrhosis Ascites presence: unspecified Qualified Code(s): K70.30 - Alcoholic cirrhosis of liver without ascites (2) Cellulitis Assessment/Plan: Celluliits of bilateral buttocks on Zosyn per ID Wound care Code(s): L03.90 - CELLULITIS, UNSPECIFIED (3) ETOH abuse Assessment/Plan: No signs of withdrawal on exam patient calm, cooperative Code(s): F10.10 - ALCOHOL ABUSE, UNCOMPLICATED (4) Anemia Assessment/Plan: s/p 1 unit of prbc with appropriate rise in hmg/hct no overt signs of bleeding send for stool for occult blood Code(s): D64.9 - ANEMIA, UNSPECIFIED (5) Jaundice Code(s): R17 - UNSPECIFIED JAUNDICE (6) Sepsis Assessment/Plan: mild tachycardia, leukocytosis and hypotension on zosyn for buttocks cellulitis monitor labs, vitals Code(s): A41.9 - SEPSIS, UNSPECIFIED ORGANISM (7) Hypokalemia Assessment/Plan: repleted Code(s): E87.6 - HYPOKALEMIA (8) GUILLERMO (acute kidney injury) Assessment/Plan: elevated creatinine, monitor daily labs followed by nephrology Code(s): N17.9 - ACUTE KIDNEY FAILURE, UNSPECIFIED (9) Chest pain Assessment/Plan: denies any further chest pain troponins negative Code(s): R07.9 - CHEST PAIN, UNSPECIFIED (10) DVT prophylaxis Assessment/Plan: scd Code(s): Z29.9 - ENCOUNTER FOR PROPHYLACTIC MEASURES, UNSPECIFIED Visit type - Emergency Visit Emergency Visit: Yes ED Registration Date: 01/24/20 Care time: The patient presented to the Emergency Department on the above date and was hospitalized for further evaluation of their emergent condition. - New Patient This patient is new to me today: No - Critical Care Critical Care patient: No - Discharge Referral Referred to [facility] No
[2020-02-02] MEDS ORDERED: PIPERACILLIN/TAZOBACTAM 3.375 GM VIAL IVPB ONE ×3 (00:52→17:21)
[2020-02-02] MEDS ORDERED: DEXTROSE 5%-WATER - 50 ML IVPB ONE ×3 (00:52→17:21)
[2020-02-02] MEDS: PIPERACILLIN/TAZOB 3.375 GM 3.375 GM in DEXTROSE 5%-WATER - 50 ML IVPB SCH ×3 (01:18→17:36)
[2020-02-02] MEDS: LACTULOSE 20 GM/30 ML UDC (FOR ORAL USE ONLY) PO SCH ×3 (05:04→21:43)
--- NOTE | 2020-02-02 07:42 | PN.GI ---
GI Progress Note Subjective: some loose bowel movements ; states he is feeling better / denies melena / brbr / abd pain / n/v - Objective Vital Signs: Vital Signs Temperature 98.0 F 02/02/20 04:56 Pulse Rate 79 02/02/20 04:56 Respiratory Rate 18 02/02/20 04:56 Blood Pressure 92/61 02/02/20 04:56 O2 Sat by Pulse Oximetry (%) 95 02/02/20 04:56 Constitutional: No Distress Eyes: Yes: Sclera Icterus HENT: Yes: WNL Neck: Yes: WNL Cardiovascular: Yes: WNL Respiratory: Yes: WNL, Regular, CTA Bilaterally Gastrointestinal Inspection: Yes: WNL ...Auscultate: Yes: Normoactive Bowel Sounds Extremities: Yes: WNL Edema: No Labs: CBC, BMP 02/01/20 07:40 02/01/20 07:40 INR, PTT INR 2.51 (0.83-1.09) H 02/01/20 07:40 Problem List - Problems (1) Alcoholic hepatitis without ascites Assessment/Plan: continue present medical regimen ; liver tests improving - prednisolone initiated monitor h/h / lft / inr daily diarrhea most likely secondary to lactulose - c.diff prc ordered for completeness. - avoid nsaid diagnostic egd once inr acceptable for endoscopic procedures Code(s): K70.10 - ALCOHOLIC HEPATITIS WITHOUT ASCITES (2) Anemia Code(s): D64.9 - ANEMIA, UNSPECIFIED (3) Cirrhosis of liver Code(s): K74.60 - UNSPECIFIED CIRRHOSIS OF LIVER Qualifiers: Hepatic cirrhosis type: alcoholic cirrhosis Ascites presence: unspecified Qualified Code(s): K70.30 - Alcoholic cirrhosis of liver without ascites (4) ETOH abuse Code(s): F10.10 - ALCOHOL ABUSE, UNCOMPLICATED
[2020-02-02 09:03] LABS: INR 2.16 (0.83-1.09); PROTHROMBIN TIME (PATIENT) 25.7 SEC (9.7-13.0)
[2020-02-02 09:10] LABS: BASO % 0.2 % (0-2.0); EOS % 0.2 % (0-4.5); HEMATOCRIT 22.7 % (35.4-49); HEMOGLOBIN 7.8 GM/dL (11.7-16.9); LYMPH % 8.4 % (8-40); MCHC 34.1 g/dl (32.0-35.9); MEAN CELL VOLUME 108.3 fl (80-96); MEAN PLT VOLUME 8.9 fl (7.5-11.1); MONO % 13.4 % (3.8-10.2); NEUT % 77.8 % (42.8-82.8); PLATELET COUNT 131 K/MM3 (134-434); RDW 17.1 % (11.9-15.9); WHITE BLOOD COUNT 11.5 K/mm3 (4.0-10.0)
[2020-02-02 09:37] LABS: BLOOD UREA NITROGEN 13.8 mg/dL (7-18); CALCIUM 7.8 mg/dL (8.5-10.1); CREATININE 1.4 mg/dL (0.55-1.3); MAGNESIUM 2.2 mg/dL (1.8-2.4); POTASSIUM 3.4 mmol/L (3.5-5.1)
[2020-02-02 09:39] LABS: BILIRUBIN,TOTAL 14.8 mg/dL (0.2-1); TOT PROT 7.6 g/dl (6.4-8.2)
[2020-02-02] MEDS: prednisoLONE SODIUM PHOSPHATE 15 MG/5 ML ORAL SOLN BOTTLE PO SCH (10:50)
[2020-02-02] MEDS: THIAMINE HCL 100 MG TABLET (FP) PO SCH (10:50)
[2020-02-02] MEDS: FOLIC ACID 1 MG TABLET (FP) PO SCH (10:50)
--- NOTE | 2020-02-02 11:13 | PN ---
Physical Exam: SUBJECTIVE: Patient seen and examined at the bedside. in no acute distress. feels well. spoke to patient about follow up with liver specialist. he tells me that he will follow up in 1 week after he is discharged. I discussed completed alcohol cessation with him. He refuses referral to an alcohol clinic of referral to AA for help. He wants to stop on his own. OBJECTIVE: Patient is a 59 year-old man with a past medical history of HTN, ETOH abuse, and seizure disorder not on meds. Patient admitted on for decompensated liver injury and jaundice. A transfer to [facility] was initiated but patient not accepted as an inpatient at this time. He will be followed as an outpatient at [facility]. Information including face sheet sent to [facility] liver center. [facility] to contact patient for follow up appt. Period Temp Pulse Resp BP Sys/Franco Pulse Ox Last 24 Hr 97.5 F-98.7 F 72-79 18-19 92-121/60-68 95-98 GENERAL: The patient is awake, alert, in no acute distress. generalized jaundice - speech ranges between clear and garbled HEAD: Normal with no signs of trauma. EYES: PERRL, extraocular movements intact ENT: Ears normal, nares patent, moist mucous membranes. NECK: Trachea midline, full range of motion, supple. LUNGS: Breath sounds equal, clear to auscultation bilaterally HEART: Regular rate and rhythm, S1, S2 without murmur, rub or gallop. ABDOMEN: soft mildly distended, + bowel sounds EXTREMITIES: no edema. NEUROLOGICAL: Normal speech, gait not observed. PSYCH: Normal mood, normal affect. SKIN: generalized jaundice Laboratory Results - last 24 hr 02/01/20 02/02/20 02/02/20 07:40 08:10 08:40 WBC 11.5 H RBC 2.10 L Hgb 7.8 L Hct 22.7 L MCV 108.3 H MCH 37.0 H MCHC 34.1 RDW 17.1 H Absolute Neuts (auto) 8.9 H Neutrophils % 77.8 Lymphocytes % 8.4 Monocytes % 13.4 H D Eosinophils % 0.2 D Basophils % 0.2 Nucleated RBC % 0 Platelet Estimate Decreased PT with INR 25.70 H INR 2.16 H Sodium Potassium Chloride Carbon Dioxide Anion Gap BUN Creatinine Est GFR (CKD-EPI)AfAm Est GFR (CKD-EPI)NonAf Random Glucose Calcium Magnesium Total Bilirubin AST ALT Alkaline Phosphatase Total Protein Albumin 02/02/20 08:40 WBC RBC Hgb Hct MCV MCH MCHC RDW Absolute Neuts (auto) Neutrophils % Lymphocytes % Monocytes % Eosinophils % Basophils % Nucleated RBC % Platelet Estimate PT with INR INR Sodium 137 Potassium 3.4 L Chloride 108 H Carbon Dioxide 19 L Anion Gap 10 BUN 13.8 Creatinine 1.4 H Est GFR (CKD-EPI)AfAm 64.18 Est GFR (CKD-EPI)NonAf 55.38 Random Glucose 104 Calcium 7.8 L Magnesium 2.2 Total Bilirubin 14.8 H AST 74 H ALT 29 Alkaline Phosphatase 98 Total Protein 7.6 Albumin 2.0 L Active Medications Generic Name Dose Route Start Last Admin Trade Name Freq PRN Reason Stop Dose Admin Folic Acid 1 mg 01/26/20 10:00 02/02/20 10:50 Folic Acid - PO 1 mg DAILY [facility] Administration Piperacillin Sod/Tazobactam 50 mls @ 100 mls/hr 01/28/20 18:00 02/02/20 10:50 Sod 3.375 gm/ Dextrose IVPB 100 mls/hr Q8H-IV [facility] Administration Protocol Lactulose 20 gm 01/25/20 14:00 02/02/20 05:04 Cephulac (Oral Use) PO 20 gm TID [facility] Administration Prednisolone Sodium Phosphate 40 mg 01/31/20 14:00 02/02/20 10:50 Orapred (15 Mg/5 Ml) Oral Solution - PO 40 mg DAILY [facility] Administration Thiamine HCl 200 mg 01/25/20 10:00 02/02/20 10:50 Vitamin B1 - PO 200 mg DAILY [facility] Administration ASSESSMENT/PLAN: Problem List - Problems (1) Alcoholic hepatitis with ascites Assessment/Plan: liver tests improving on prednisone per GI. Monitor daily coags, cbc, lfts patient with episodes of loose stools likely secondary to lactulose, c diff ordered to rule out c diff as pt is on antibiotics patient for an EGD once INR levels stabilize Code(s): K70.11 - ALCOHOLIC HEPATITIS WITH ASCITES (2) Cirrhosis of liver Assessment/Plan: started on lactulose bid, repeat ammonia levels at 42 patent is awake and alert on spironolactone patient with chronic etoh abuse, but without signs of withdrawal at present. he is refusing referral to AA clinics or rehab. On thiamine and multivitamin patient received albumbin on 01/31 abdominal u/s today pending Code(s): K74.60 - UNSPECIFIED CIRRHOSIS OF LIVER Qualifiers: Hepatic cirrhosis type: alcoholic cirrhosis Ascites presence: unspecified Qualified Code(s): K70.30 - Alcoholic cirrhosis of liver without ascites (3) Cellulitis Assessment/Plan: Celluliits of bilateral buttocks on Zosyn per ID Wound care daily Code(s): L03.90 - CELLULITIS, UNSPECIFIED (4) ETOH abuse Assessment/Plan: No signs of withdrawal on exam patient calm, cooperative Code(s): F10.10 - ALCOHOL ABUSE, UNCOMPLICATED (5) Anemia Assessment/Plan: s/p 1 unit of prbc with appropriate rise in hmg/hct no overt signs of bleeding send for stool for occult blood Code(s): D64.9 - ANEMIA, UNSPECIFIED (6) Jaundice Code(s): R17 - UNSPECIFIED JAUNDICE (7) Sepsis Assessment/Plan: mild tachycardia, leukocytosis and hypotension on zosyn for buttocks cellulitis monitor labs, vitals Code(s): A41.9 - SEPSIS, UNSPECIFIED ORGANISM (8) Hypokalemia Assessment/Plan: repleted Code(s): E87.6 - HYPOKALEMIA (9) GUILLERMO (acute kidney injury) Assessment/Plan: elevated creatinine, monitor daily labs followed by nephrology Code(s): N17.9 - ACUTE KIDNEY FAILURE, UNSPECIFIED (10) Chest pain Assessment/Plan: denies any further chest pain troponins negative Code(s): R07.9 - CHEST PAIN, UNSPECIFIED (11) DVT prophylaxis Assessment/Plan: scd Code(s): Z29.9 - ENCOUNTER FOR PROPHYLACTIC MEASURES, UNSPECIFIED Visit type - Emergency Visit Emergency Visit: Yes ED Registration Date: 01/24/20 Care time: The patient presented to the Emergency Department on the above date and was hospitalized for further evaluation of their emergent condition. - New Patient This patient is new to me today: No - Critical Care Critical Care patient: No - Discharge Referral Referred to [facility] Yes
[2020-02-02] MEDS ORDERED: POTASSIUM CHLORIDE TABS 20 MEQ TABLET.ER (FP) PO ONE (11:17)
[2020-02-02 11:52] LABS: PLATELET ESTIMATE DECREASED
--- NOTE | 2020-02-02 17:05 | PN ---
Progress Note (short form) - Note Progress Note: 1. liver cirrhosis 2. etoh abuse 3. htn 4. epilepsy 5. ascites 6. paris Active Medications Folic Acid (Folic Acid -) 1 mg PO DAILY [facility] Last Admin: 02/02/20 10:50 Dose: 1 mg Documented by: Piperacillin Sod/Tazobactam (Sod 3.375 gm/ Dextrose) 50 mls @ 100 mls/hr IVPB Q8H-IV [facility]; Protocol Last Admin: 02/02/20 10:50 Dose: 100 mls/hr Documented by: Lactulose (Cephulac (Oral Use)) 20 gm PO TID [facility] Last Admin: 02/02/20 13:58 Dose: 20 gm Documented by: Potassium Chloride (K-Dur -) 20 meq PO BID [facility] Prednisolone Sodium Phosphate (Orapred (15 Mg/5 Ml) Oral Solution -) 40 mg PO DAILY [facility] Last Admin: 02/02/20 10:50 Dose: 40 mg Documented by: Thiamine HCl (Vitamin B1 -) 200 mg PO DAILY [facility] Last Admin: 02/02/20 10:50 Dose: 200 mg Documented by: Last Vital Signs Temp Pulse Resp BP Pulse Ox 98 F 60 18 108/63 98 02/02/20 14:00 02/02/20 14:00 02/02/20 14:00 02/02/20 14:00 02/02/20 14:00 CBC, BMP 02/02/20 08:40 02/02/20 08:40
[2020-02-02] MEDS: POTASSIUM CHLORIDE TABS 20 MEQ TABLET.ER (FP) PO SCH (21:43)
[2020-02-03] MEDS ORDERED: DEXTROSE 5%-WATER - 50 ML IVPB ONE ×3 (01:08→16:01)
[2020-02-03] MEDS ORDERED: PIPERACILLIN/TAZOBACTAM 3.375 GM VIAL IVPB ONE ×3 (01:08→16:01)
[2020-02-03] MEDS: PIPERACILLIN/TAZOB 3.375 GM 3.375 GM in DEXTROSE 5%-WATER - 50 ML IVPB SCH ×3 (01:14→18:01)
[2020-02-03] MEDS: LACTULOSE 20 GM/30 ML UDC (FOR ORAL USE ONLY) PO SCH ×3 (06:01→21:17)
--- NOTE | 2020-02-03 07:20 | PN.GI ---
GI Progress Note Subjective: complains of diarrhea - copious amounts making it difficult for him to rest - Objective Vital Signs: Vital Signs Temperature 98.3 F 02/03/20 06:00 Pulse Rate 70 02/03/20 06:00 Respiratory Rate 18 02/03/20 06:00 Blood Pressure 115/70 02/03/20 06:00 O2 Sat by Pulse Oximetry (%) 98 02/03/20 06:00 Constitutional: Well Nourished, No Distress Eyes: Yes: Sclera Icterus Cardiovascular: Yes: WNL, Regular Rate and Rhythm Respiratory: Yes: WNL, Regular, CTA Bilaterally Gastrointestinal Inspection: Yes: WNL ...Auscultate: Yes: Normoactive Bowel Sounds Edema: No Labs: CBC, BMP 02/02/20 08:40 02/02/20 08:40 INR, PTT INR 2.16 (0.83-1.09) H 02/02/20 08:10 Problem List - Problems (1) Alcoholic hepatitis without ascites Assessment/Plan: c/ w prednisolone monitor h/h / lft / inr daily diarrhea most likely secondary to lactulose - c.diff prc negative ; decreased lactulose to bid dosing - he is mental status is nml; if needed add rifaximin 550 mg po bid avoid nsaid diagnostic egd once inr acceptable for endoscopic procedures Code(s): K70.10 - ALCOHOLIC HEPATITIS WITHOUT ASCITES (2) Anemia Code(s): D64.9 - ANEMIA, UNSPECIFIED (3) Cirrhosis of liver Code(s): K74.60 - UNSPECIFIED CIRRHOSIS OF LIVER Qualifiers: Hepatic cirrhosis type: alcoholic cirrhosis Ascites presence: unspecified Qualified Code(s): K70.30 - Alcoholic cirrhosis of liver without ascites (4) ETOH abuse Code(s): F10.10 - ALCOHOL ABUSE, UNCOMPLICATED
[2020-02-03 08:47] LABS: INR 2.01 (0.83-1.09); PROTHROMBIN TIME (PATIENT) 23.9 SEC (9.7-13.0)
[2020-02-03 09:04] LABS: ALBUMIN 1.8 g/dl (3.4-5.0); BILIRUBIN,TOTAL 13.9 mg/dL (0.2-1); BLOOD UREA NITROGEN 19.4 mg/dL (7-18); CALCIUM 7.9 mg/dL (8.5-10.1); CREATININE 1.3 mg/dL (0.55-1.3); MAGNESIUM 2.2 mg/dL (1.8-2.4); POTASSIUM 4.3 mmol/L (3.5-5.1); TOT PROT 7.6 g/dl (6.4-8.2)
[2020-02-03 09:55] LABS: BASO % 0.3 % (0-2.0); EOS % 0.1 % (0-4.5); HEMATOCRIT 24.6 % (35.4-49); HEMOGLOBIN 8.4 GM/dL (11.7-16.9); MCHC 33.9 g/dl (32.0-35.9); MEAN CELL VOLUME 108.9 fl (80-96); MEAN PLT VOLUME 9.4 fl (7.5-11.1); MONO % 12.6 % (3.8-10.2); PLATELET COUNT 149 K/MM3 (134-434); RBC 2.26 M/mm3 (4.00-5.60); RDW 16.7 % (11.9-15.9)
[2020-02-03] MEDS: POTASSIUM CHLORIDE TABS 20 MEQ TABLET.ER (FP) PO SCH ×2 (09:58→21:21)
[2020-02-03] MEDS: FOLIC ACID 1 MG TABLET (FP) PO SCH (09:58)
[2020-02-03] MEDS: THIAMINE HCL 100 MG TABLET (FP) PO SCH (09:59)
[2020-02-03] MEDS: prednisoLONE SODIUM PHOSPHATE 15 MG/5 ML ORAL SOLN BOTTLE PO SCH (09:59)
[2020-02-03 13:10] LABS: ANISOCYTOSIS 1+; MACROCYTOSIS 1+; PLATELET ESTIMATE DECREASED
--- NOTE | 2020-02-03 13:51 | PN ---
Physical Exam: SUBJECTIVE: Patient seen and examined at the bedside. in no acute distress. feels well. spoke to patient about follow up with liver specialist. he tells me that he will follow up. He states he will stop drinking on his own. Explaind to him that this is difficult to do and he should seek help or allow us to refer him, but he is refusing. OBJECTIVE: Patient is a 59 year-old man with a past medical history of HTN, ETOH abuse, and seizure disorder not on meds. Patient admitted on for decompensated li marcell injury and jaundice. A transfer to [facility] was initiated but patient not accepted as an inpatient. He will be followed as an outpatient at [facility]. Information including face sheet sent to [facility] liver center (Dr. Batres is contact at [facility] [phone]). [facility] to contact patient for follow up appt. once he is discharged. Vital Signs Period Temp Pulse Resp BP Sys/Franco Pulse Ox Last 24 Hr 98 F-98.5 F 60-76 18-18 100-116/63-74 97-100 GENERAL: The patient is awake, alert, in no acute distress. generalized jaundice - speech ranges between clear and garbled HEAD: Normal with no signs of trauma. EYES: PERRL, extraocular movements intact ENT: Ears normal, nares patent, moist mucous membranes. NECK: Trachea midline, full range of motion, supple. LUNGS: Breath sounds equal, clear to auscultation bilaterally HEART: Regular rate and rhythm, S1, S2 without murmur, rub or gallop. ABDOMEN: soft mildly distended, + bowel sounds EXTREMITIES: no edema. NEUROLOGICAL: Normal speech, gait not observed. PSYCH: Normal mood, normal affect. SKIN: generalized jaundice, multiple buttocks small abrasions/lesions. improving. Laboratory Results - last 24 hr 02/03/20 02/03/20 02/03/20 06:35 07:35 07:35 WBC 14.0 H RBC 2.26 L Hgb 8.4 L Hct 24.6 L MCV 108.9 H MCH 37.0 H MCHC 33.9 RDW 16.7 H Absolute Neuts (auto) 11.1 H Neutrophils % 79.0 Neutrophils % (Manual) 79.0 Band Neutrophils % 0.0 Lymphocytes % 8.0 Lymphocytes % (Manual) 9.0 Monocytes % 12.6 H Monocytes % (Manual) 11 H Eosinophils % 0.1 Eosinophils % (Manual) 0.0 Basophils % 0.3 Basophils % (Manual) 0.0 Myelocytes % (Man) 1 Promyelocytes % (Man) 0 Blast Cells % (Manual) 0 Nucleated RBC % 0 Metamyelocytes 0 Hypochromia 0 Platelet Estimate Decreased Polychromasia 0 Poikilocytosis 0 Anisocytosis 1+ Microcytosis 0 Macrocytosis 1+ PT with INR 23.90 H INR 2.01 H Sodium 138 Potassium 4.3 Chloride 110 H Carbon Dioxide 23 Anion Gap 5 L BUN 19.4 H Creatinine 1.3 Est GFR (CKD-EPI)AfAm 70.20 Est GFR (CKD-EPI)NonAf 60.57 Random Glucose 104 Calcium 7.9 L Magnesium 2.2 Total Bilirubin 13.9 H AST 92 H ALT 39 Alkaline Phosphatase 93 Total Protein 7.6 Albumin 1.8 L Active Medications Generic Name Dose Route Start Last Admin Trade Name Freq PRN Reason Stop Dose Admin Folic Acid 1 mg 01/26/20 10:00 02/03/20 09:58 Folic Acid - PO 1 mg DAILY [facility] Administration Piperacillin Sod/Tazobactam 50 mls @ 100 mls/hr 01/28/20 18:00 02/03/20 09:58 Sod 3.375 gm/ Dextrose IVPB 100 mls/hr Q8H-IV [facility] Administration Protocol Lactulose 20 gm 01/25/20 14:00 02/03/20 13:22 Cephulac (Oral Use) PO 20 gm TID [facility] Administration Potassium Chloride 20 meq 02/02/20 22:00 02/03/20 09:58 K-Dur - PO 20 meq BID [facility] Administration Prednisolone Sodium Phosphate 40 mg 01/31/20 14:00 02/03/20 09:59 Orapred (15 Mg/5 Ml) Oral Solution - PO 40 mg DAILY [facility] Administration Thiamine HCl 200 mg 01/25/20 10:00 02/03/20 09:59 Vitamin B1 - PO 200 mg DAILY [facility] Administration ASSESSMENT/PLAN: Problem List - Problems (1) Alcoholic hepatitis with ascites Assessment/Plan: liver tests improving on prednisolone per GI. Monitor daily coags, cbc, lfts patient with episodes of loose stools likely secondary to lactulose, c diff ordered to rule out c diff as pt is on antibiotics patient for an EGD once INR levels stabilize Code(s): K70.11 - ALCOHOLIC HEPATITIS WITH ASCITES (2) Cirrhosis of liver Assessment/Plan: started on lactulose bid, repeat ammonia levels at 42 patent is awake and alert - repeat ammonia levels in a.m. on spironolactone patient with chronic etoh abuse, but without signs of withdrawal at present. he is refusing referral to AA clinics or rehab. On thiamine and multivitamin patient received albumbin on 01/31 abdominal u/s shows ascites Code(s): K74.60 - UNSPECIFIED CIRRHOSIS OF LIVER Qualifiers: Hepatic cirrhosis type: alcoholic cirrhosis Ascites presence: unspecified Qualified Code(s): K70.30 - Alcoholic cirrhosis of liver without ascites (3) Cellulitis Assessment/Plan: Celluliits of bilateral buttocks on Zosyn per ID Wound care daily Code(s): L03.90 - CELLULITIS, UNSPECIFIED (4) ETOH abuse Assessment/Plan: No signs of withdrawal on exam patient calm, cooperative Code(s): F10.10 - ALCOHOL ABUSE, UNCOMPLICATED (5) Anemia Assessment/Plan: s/p 1 unit of prbc with appropriate rise in hmg/hct no overt signs of bleeding send for stool for occult blood Code(s): D64.9 - ANEMIA, UNSPECIFIED (6) Jaundice Code(s): R17 - UNSPECIFIED JAUNDICE (7) Sepsis Assessment/Plan: resolved on zosyn for buttocks cellulitis. leukocytosis increased to 14 today in the setting of steriod therapy. no signs of infection. monitor labs, vitals Code(s): A41.9 - SEPSIS, UNSPECIFIED ORGANISM (8) Hypokalemia Assessment/Plan: on supplements Code(s): E87.6 - HYPOKALEMIA (9) GUILLERMO (acute kidney injury) Assessment/Plan: monitor daily labs followed by nephrology Code(s): N17.9 - ACUTE KIDNEY FAILURE, UNSPECIFIED (10) Chest pain Assessment/Plan: denies any further chest pain troponins negative Code(s): R07.9 - CHEST PAIN, UNSPECIFIED (11) DVT prophylaxis Assessment/Plan: scd Code(s): Z29.9 - ENCOUNTER FOR PROPHYLACTIC MEASURES, UNSPECIFIED Visit type - Emergency Visit Emergency Visit: Yes ED Registration Date: 01/24/20 Care time: The patient presented to the Emergency Department on the above date and was hospitalized for further evaluation of their emergent condition. - New Patient This patient is new to me today: No - Critical Care Critical Care patient: No - Discharge Referral Referred to [facility] Yes
--- NOTE | 2020-02-03 19:35 | PN ---
Progress Note (short form) - Note Progress Note: 1. liver cirrhosis 2. etoh abuse 3. htn 4. epilepsy 5. ascites 6. paris Active Medications Folic Acid (Folic Acid -) 1 mg PO DAILY [facility] Last Admin: 02/03/20 09:58 Dose: 1 mg Documented by: Piperacillin Sod/Tazobactam (Sod 3.375 gm/ Dextrose) 50 mls @ 100 mls/hr IVPB Q8H-IV [facility]; Protocol Last Admin: 02/03/20 18:01 Dose: 100 mls/hr Documented by: Lactulose (Cephulac (Oral Use)) 20 gm PO BID [facility] Multivitamins/Minerals/Vitamin C (Tab-A-Vit -) 1 tab PO DAILY [facility] Potassium Chloride (K-Dur -) 20 meq PO BID [facility] Last Admin: 02/03/20 09:58 Dose: 20 meq Documented by: Prednisolone Sodium Phosphate (Orapred (15 Mg/5 Ml) Oral Solution -) 40 mg PO DAILY [facility] Last Admin: 02/03/20 09:59 Dose: 40 mg Documented by: Thiamine HCl (Vitamin B1 -) 200 mg PO DAILY [facility] Last Admin: 02/03/20 09:59 Dose: 200 mg Documented by: Last Vital Signs Temp Pulse Resp BP Pulse Ox 97.9 F 76 20 102/62 98 02/03/20 18:00 02/03/20 18:00 02/03/20 18:00 02/03/20 18:00 02/03/20 18:00 CBC, BMP 02/03/20 06:35 02/03/20 07:35 CBC, BMP 02/02/20 08:40 02/02/20 08:40
[2020-02-04] MEDS ORDERED: PIPERACILLIN/TAZOBACTAM 3.375 GM VIAL IVPB ONE ×2 (01:08→08:54)
[2020-02-04] MEDS ORDERED: DEXTROSE 5%-WATER - 50 ML IVPB ONE ×2 (01:08→08:54)
[2020-02-04] MEDS: PIPERACILLIN/TAZOB 3.375 GM 3.375 GM in DEXTROSE 5%-WATER - 50 ML IVPB SCH ×2 (01:43→09:13)
[2020-02-04] MEDS ORDERED: PT OWN MED DRAWER 7, Y5N ONE ×2 (08:54→16:51)
[2020-02-04 09:08] LABS: INR 1.57 (0.83-1.09); PROTHROMBIN TIME (PATIENT) 18.6 SEC (9.7-13.0)
[2020-02-04] MEDS: prednisoLONE SODIUM PHOSPHATE 15 MG/5 ML ORAL SOLN BOTTLE PO SCH (09:12)
[2020-02-04] MEDS: POTASSIUM CHLORIDE TABS 20 MEQ TABLET.ER (FP) PO SCH (09:12)
[2020-02-04] MEDS: LACTULOSE 20 GM/30 ML UDC (FOR ORAL USE ONLY) PO SCH ×2 (09:12→22:17)
[2020-02-04] MEDS: FOLIC ACID 1 MG TABLET (FP) PO SCH (09:12)
[2020-02-04 09:13] LABS: ALBUMIN 1.8 g/dl (3.4-5.0); BILIRUBIN,TOTAL 12.2 mg/dL (0.2-1); BLOOD UREA NITROGEN 21.9 mg/dL (7-18); CALCIUM 7.7 mg/dL (8.5-10.1); CREATININE 1.2 mg/dL (0.55-1.3); MAGNESIUM 2.1 mg/dL (1.8-2.4); POTASSIUM 4.4 mmol/L (3.5-5.1); TOT PROT 7.4 g/dl (6.4-8.2)
[2020-02-04] MEDS: THIAMINE HCL 100 MG TABLET (FP) PO SCH (09:13)
[2020-02-04] MEDS: MULTIVITAMINS (DAILY MVI) TABLET (FP) PO SCH (09:13)
[2020-02-04 09:45] LABS: BASO % 0.1 % (0-2.0); EOS % 0.3 % (0-4.5); HEMATOCRIT 24.7 % (35.4-49); HEMOGLOBIN 8.2 GM/dL (11.7-16.9); LYMPH % 9.6 % (8-40); MCH 35.5 pg (25.7-33.7); MCHC 33.4 g/dl (32.0-35.9); MEAN CELL VOLUME 106.2 fl (80-96); MEAN PLT VOLUME 9.1 fl (7.5-11.1); MONO % 12.9 % (3.8-10.2); NEUT % 77.1 % (42.8-82.8); PLATELET COUNT 153 K/MM3 (134-434); RBC 2.32 M/mm3 (4.00-5.60)
[2020-02-04 11:15] LABS: ANISOCYTOSIS 2+; MACROCYTOSIS 2+; PLATELET ESTIMATE DECREASED
--- NOTE | 2020-02-04 13:16 | PN ---
Progress Note, Physician History of Present Illness: Pt seen and examined at bedside. He is awake and appears comfortable. - Current Medication List Current Medications: Active Medications Collagenase (Santyl -) 1 applic TP DAILY [facility]; Protocol Folic Acid (Folic Acid -) 1 mg PO DAILY [facility] Last Admin: 02/04/20 09:12 Dose: 1 mg Documented by: Piperacillin Sod/Tazobactam (Sod 3.375 gm/ Dextrose) 50 mls @ 100 mls/hr IVPB Q8H-IV [facility]; Protocol Last Admin: 02/04/20 09:13 Dose: 100 mls/hr Documented by: Lactulose (Cephulac (Oral Use)) 20 gm PO BID [facility] Last Admin: 02/04/20 09:12 Dose: 20 gm Documented by: Multivitamins/Minerals/Vitamin C (Tab-A-Vit -) 1 tab PO DAILY [facility] Last Admin: 02/04/20 09:13 Dose: 1 tab Documented by: Pantoprazole Sodium (Protonix -) 40 mg PO DAILY [facility] Potassium Chloride (K-Dur -) 20 meq PO BID [facility] Last Admin: 02/04/20 09:12 Dose: 20 meq Documented by: Prednisolone Sodium Phosphate (Orapred (15 Mg/5 Ml) Oral Solution -) 40 mg PO DAILY [facility] Last Admin: 02/04/20 09:12 Dose: 40 mg Documented by: Thiamine HCl (Vitamin B1 -) 200 mg PO DAILY [facility] Last Admin: 02/04/20 09:13 Dose: 200 mg Documented by: - Objective Vital Signs: Vital Signs Temperature 97.9 F 02/04/20 10:00 Pulse Rate 67 02/04/20 10:00 Respiratory Rate 16 02/04/20 10:00 Blood Pressure 112/67 02/04/20 10:00 O2 Sat by Pulse Oximetry (%) 100 02/04/20 10:00 Constitutional: Yes: Calm Eyes: Yes: Sclera Icterus HENT: Yes: Atraumatic Cardiovascular: Yes: S1, S2 Respiratory: Yes: CTA Bilaterally Gastrointestinal: Yes: Soft Genitourinary: Yes: WNL Musculoskeletal: Yes: WNL Edema: No Integumentary: Yes: Jaundice Neurological: Yes: Oriented Psychiatric: Yes: Oriented Labs: CBC, BMP 02/04/20 07:50 02/04/20 07:50 INR, PTT INR 1.57 (0.83-1.09) H 02/04/20 07:50 Assessment/Plan Current Medications Generic Name Dose Route Start Last Admin Trade Name Gustavo PRN Reason Stop Dose Admin Collagenase 1 applic 02/04/20 12:00 Santyl - TP DAILY [facility] Protocol Folic Acid 1 mg 01/26/20 10:00 02/04/20 09:12 Folic Acid - PO 1 mg DAILY [facility] Administration Piperacillin Sod/Tazobactam 50 mls @ 100 mls/hr 01/28/20 18:00 02/04/20 09:13 Sod 3.375 gm/ Dextrose IVPB 100 mls/hr Q8H-IV [facility] Administration Protocol Lactulose 20 gm 02/03/20 22:00 02/04/20 09:12 Cephulac (Oral Use) PO 20 gm BID [facility] Administration Multivitamins/Minerals/Vitamin C 1 tab 02/04/20 10:00 02/04/20 09:13 Tab-A-Vit - PO 1 tab DAILY [facility] Administration Pantoprazole Sodium 40 mg 02/04/20 12:00 Protonix - PO DAILY [facility] Potassium Chloride 20 meq 02/02/20 22:00 02/04/20 09:12 K-Dur - PO 20 meq BID [facility] Administration Prednisolone Sodium Phosphate 40 mg 01/31/20 14:00 02/04/20 09:12 Orapred (15 Mg/5 Ml) Oral Solution - PO 40 mg DAILY [facility] Administration Thiamine HCl 200 mg 01/25/20 10:00 02/04/20 09:13 Vitamin B1 - PO 200 mg DAILY [facility] Administration Impression 1. liver cirrhosis 2. etoh abuse 3. htn 4. epilepsy 5. ascites 6. paris Plan - renal function improved - d/c potassium supplements - start low dose aldactone and titrate as tolerated - cont to monitor bili - monitor for ascites - discussed etoh use with pt
[2020-02-04] MEDS: PANTOPRAZOLE 40 MG TABLET PO SCH (15:42)
--- NOTE | 2020-02-04 15:59 | PN ---
Physical Exam: SUBJECTIVE: Patient seen and examined. denies any malaise, ambulating with PT. Patient tells me that he wants to go home and is not accepting of any referrals for alcohol cessation. he wants to quit on his own. He is aware that he needs to follow up outpatient with [facility] liver specialist and I have informed patient that I faxed over all of his information including phone number to [facility] liver specialty. [facility] to follow patient in the community and patient is agreeing to follow up. OBJECTIVE: Patient is a 59 year-old man with a past medical history of HTN, ETOH abuse, and seizure disorder not on meds. Patient admitted on 01/24/20 for decompensated liver injury and jaundice. A transfer to [facility] was initiated but patient not accepted as an inpatient at this time. He will be followed as an outpatient at [facility]. Information including face sheet sent to [facility] liver center after I spoke with Dr. Turner [phone]. [facility] to contact patient for follow up appt. when he is discharged. covid status: negative as of 01/24/20 Vital Signs Period Temp Pulse Resp BP Sys/Franco Pulse Ox Last 24 Hr 97.9 F-98.0 F 66-78 16-20 102-118/62-77 96-100 GENERAL: The patient is awake, alert, in no acute distress. generalized jaundice - speech ranges between clear and garbled - yakut speaking HEAD: Normal with no signs of trauma. EYES: PERRL, extraocular movements intact ENT: Ears normal, nares patent, moist mucous membranes. NECK: Trachea midline, full range of motion, supple. LUNGS: Breath sounds equal, clear to auscultation bilaterally HEART: Regular rate and rhythm ABDOMEN: soft mildly distended, + bowel sounds EXTREMITIES: no edema. NEUROLOGICAL: Normal speech, gait not observed. PSYCH: Normal mood, normal affect. SKIN: generalized jaundice, multiple buttocks small abrasions/lesions. improving. zosyn stopped today, started on Santyl Laboratory Results - last 24 hr 01/30/20 02/04/20 02/04/20 08:10 07:50 07:50 WBC 14.0 H RBC 2.32 L Hgb 8.2 L Hct 24.7 L MCV 106.2 H MCH 35.5 H MCHC 33.4 RDW 16.0 H Plt Count 153 MPV 9.1 Absolute Neuts (auto) 10.8 H Neutrophils % 77.1 Neutrophils % (Manual) 76.8 Band Neutrophils % 0.0 Lymphocytes % 9.6 Lymphocytes % (Manual) 10.1 Monocytes % 12.9 H Monocytes % (Manual) 13 H Eosinophils % 0.3 D Eosinophils % (Manual) 0.0 Basophils % 0.1 Basophils % (Manual) 0.0 Myelocytes % (Man) 0 D Promyelocytes % (Man) 0 Blast Cells % (Manual) 0 Nucleated RBC % 0 Metamyelocytes 0 Hypochromia 0 Platelet Estimate Decreased Polychromasia 0 Poikilocytosis 0 Anisocytosis 2+ Microcytosis 0 Macrocytosis 2+ PT with INR INR Sodium 137 Potassium 4.4 Chloride 109 H Carbon Dioxide 24 Anion Gap 4 L BUN 21.9 H Creatinine 1.2 Est GFR (CKD-EPI)AfAm 77.33 Est GFR (CKD-EPI)NonAf 66.72 Random Glucose 99 Calcium 7.7 L Magnesium 2.1 Total Bilirubin 12.2 H AST 117 H ALT 53 Alkaline Phosphatase 98 Ammonia Total Protein 7.4 Albumin 1.8 L Blood Type A POSITIVE Antibody Screen Negative Crossmatch See Detail 02/04/20 02/04/20 07:50 07:50 WBC RBC Hgb Hct MCV MCH MCHC RDW Plt Count MPV Absolute Neuts (auto) Neutrophils % Neutrophils % (Manual) Band Neutrophils % Lymphocytes % Lymphocytes % (Manual) Monocytes % Monocytes % (Manual) Eosinophils % Eosinophils % (Manual) Basophils % Basophils % (Manual) Myelocytes % (Man) Promyelocytes % (Man) Blast Cells % (Manual) Nucleated RBC % Metamyelocytes Hypochromia Platelet Estimate Polychromasia Poikilocytosis Anisocytosis Microcytosis Macrocytosis PT with INR 18.60 H INR 1.57 H Sodium Potassium Chloride Carbon Dioxide Anion Gap BUN Creatinine Est GFR (CKD-EPI)AfAm Est GFR (CKD-EPI)NonAf Random Glucose Calcium Magnesium Total Bilirubin AST ALT Alkaline Phosphatase Ammonia < 10.00 L Total Protein Albumin Blood Type Antibody Screen Crossmatch Active Medications Generic Name Dose Route Start Last Admin Trade Name Freq PRN Reason Stop Dose Admin Collagenase 1 applic 02/04/20 14:00 Santyl - TP DAILY GUERDA Protocol Folic Acid 1 mg 01/26/20 10:00 02/04/20 09:12 Folic Acid - PO 1 mg DAILY GUERDA Administration Lactulose 20 gm 02/03/20 22:00 02/04/20 09:12 Cephulac (Oral Use) PO 20 gm BID GUERDA Administration Multivitamins/Minerals/Vitamin C 1 tab 02/04/20 10:00 02/04/20 09:13 Tab-A-Vit - PO 1 tab DAILY GUERDA Administration Pantoprazole Sodium 40 mg 02/04/20 14:00 02/04/20 15:42 Protonix - PO 40 mg DAILY GUERDA Administration Prednisolone Sodium Phosphate 40 mg 01/31/20 14:00 02/04/20 09:12 Orapred (15 Mg/5 Ml) Oral Solution - PO 40 mg DAILY GUERDA Administration Spironolactone 25 mg 02/05/20 10:00 Aldactone - PO DAILY GUERDA Thiamine HCl 200 mg 01/25/20 10:00 02/04/20 09:13 Vitamin B1 - PO 200 mg DAILY GUERDA Administration ASSESSMENT/PLAN: Problem List - Problems (1) Alcoholic hepatitis with ascites Assessment/Plan: liver tests improving on prednisolone per GI. Monitor daily coags, cbc, lfts patient with episodes of loose stools likely secondary to lactulose, c diff negative patient for an EGD once INR levels stabilize per GI Code(s): K70.11 - ALCOHOLIC HEPATITIS WITH ASCITES (2) Cirrhosis of liver Assessment/Plan: started on lactulose bid, repeat ammonia levels now low normal. on spironolactone patient with chronic etoh abuse, but without signs of withdrawal at present. he is refusing referral to AA clinics or rehab. On thiamine and multivitamin patient received albumbin on 01/31 abdominal u/s shows ascites Code(s): K74.60 - UNSPECIFIED CIRRHOSIS OF LIVER Qualifiers: Hepatic cirrhosis type: alcoholic cirrhosis Ascites presence: unspecified Qualified Code(s): K70.30 - Alcoholic cirrhosis of liver without ascites (3) Cellulitis Assessment/Plan: Celluliits of bilateral buttocks appears like contact dermititis with some abrasions and DTI. Will add Santyl once per day and monitor. Wound care daily Code(s): L03.90 - CELLULITIS, UNSPECIFIED (4) ETOH abuse Assessment/Plan: No signs of withdrawal on exam patient calm, cooperative Code(s): F10.10 - ALCOHOL ABUSE, UNCOMPLICATED (5) Anemia Assessment/Plan: s/p 1 unit of prbc with appropriate rise in hmg/hct no overt signs of bleeding for EGD per GI Code(s): D64.9 - ANEMIA, UNSPECIFIED (6) Jaundice Code(s): R17 - UNSPECIFIED JAUNDICE (7) Sepsis Assessment/Plan: resolved completed zosyn for buttocks cellulitis. leukocytosis increased to 14 today in the setting of steriod therapy. no signs of infection. monitor labs, vitals Code(s): A41.9 - SEPSIS, UNSPECIFIED ORGANISM (8) Hypokalemia Assessment/Plan: on supplements Code(s): E87.6 - HYPOKALEMIA (9) GUILLERMO (acute kidney injury) Assessment/Plan: monitor daily labs followed by nephrology Code(s): N17.9 - ACUTE KIDNEY FAILURE, UNSPECIFIED (10) Chest pain Assessment/Plan: denies any further chest pain troponins negative Code(s): R07.9 - CHEST PAIN, UNSPECIFIED (11) DVT prophylaxis Assessment/Plan: scd and heparin bid Code(s): Z29.9 - ENCOUNTER FOR PROPHYLACTIC MEASURES, UNSPECIFIED Visit type - Emergency Visit Emergency Visit: Yes ED Registration Date: 01/24/20 Care time: The patient presented to the Emergency Department on the above date and was hospitalized for further evaluation of their emergent condition. - New Patient This patient is new to me today: No - Critical Care Critical Care patient: No - Discharge Referral Referred to [facility] Med P.C.: Yes Physician Referral: Bennie Doherty MD (Int Med)
[2020-02-04] MEDS: COLLAGENASE CLOSTRIDIUM HIST. 30 GRAMS TUBE TP SCH (16:53)
[2020-02-04] MEDS: HEPARIN NA (PORCINE) 5,000 UNITS/ML 1ML VIAL SQ SCH (22:17)
[2020-02-05 08:46] LABS: INR 1.74 (0.83-1.09); PROTHROMBIN TIME (PATIENT) 20.7 SEC (9.7-13.0)
[2020-02-05 09:04] LABS: BASO % 0.1 % (0-2.0); EOS % 0.5 % (0-4.5); HEMATOCRIT 24.5 % (35.4-49); HEMOGLOBIN 8.2 GM/dL (11.7-16.9); LYMPH % 9.6 % (8-40); MCH 35.4 pg (25.7-33.7); MCHC 33.4 g/dl (32.0-35.9); MEAN PLT VOLUME 9.1 fl (7.5-11.1); MONO % 11.4 % (3.8-10.2); NEUT % 78.4 % (42.8-82.8); PLATELET COUNT 160 K/MM3 (134-434); RBC 2.31 M/mm3 (4.00-5.60); WHITE BLOOD COUNT 15.6 K/mm3 (4.0-10.0)
[2020-02-05 09:08] LABS: ALBUMIN 1.7 g/dl (3.4-5.0); BILIRUBIN,TOTAL 11.1 mg/dL (0.2-1); BLOOD UREA NITROGEN 21.9 mg/dL (7-18); CALCIUM 7.9 mg/dL (8.5-10.1); MAGNESIUM 2.1 mg/dL (1.8-2.4); POTASSIUM 4.3 mmol/L (3.5-5.1); TOT PROT 7.4 g/dl (6.4-8.2)
--- NOTE | 2020-02-05 09:23 | DS ---
Physical Exam: SUBJECTIVE: Pt slept okay, continues to be oriented x3. No complaints this morning. Curious about when he can go home. Ate this morning and it was discussed that he can have EGD in an outpatient setting. H/H remains stable with LFTs slowly improving with therapy OBJECTIVE: Vital Signs Period Temp Pulse Resp BP Sys/Frnaco Pulse Ox Last 24 Hr 97.4 F-98.1 F 66-76 15-18 100-125/46-77 93-100 PHYSICAL EXAM GENERAL: NAD, awake, alert, and fully oriented HEENT: NC/AT, + sclera icterus (improved compared to prior notes), EOMI, VANESSA, MMM NECK: No JVD LUNGS: CTA bilaterally, no wheezes, no crackles, no accessory muscle use. HEART: RRR, S1, S2 without murmur ABDOMEN: Soft, nondistendend, nontender, normoactive bowel sounds, no guarding, no asterixis, hepatomegaly EXTREMITIES: 2+ pulses, warm, well-perfused, no edema. PSYCH: Normal mood, normal affect. SKIN: Warm, dry, no rashes or lesions noted. LABS Laboratory Results - last 24 hr 02/02/20 02/04/20 02/04/20 18:49 07:50 07:50 WBC 14.0 H RBC 2.32 L Hgb 8.2 L Hct 24.7 L MCV 106.2 H MCH 35.5 H MCHC 33.4 RDW 16.0 H Plt Count 153 MPV 9.1 Absolute Neuts (auto) 10.8 H Neutrophils % 77.1 Neutrophils % (Manual) 76.8 Band Neutrophils % 0.0 Lymphocytes % 9.6 Lymphocytes % (Manual) 10.1 Monocytes % 12.9 H Monocytes % (Manual) 13 H Eosinophils % 0.3 D Eosinophils % (Manual) 0.0 Basophils % 0.1 Basophils % (Manual) 0.0 Myelocytes % (Man) 0 D Promyelocytes % (Man) 0 Blast Cells % (Manual) 0 Nucleated RBC % 0 Metamyelocytes 0 Hypochromia 0 Platelet Estimate Decreased Polychromasia 0 Poikilocytosis 0 Anisocytosis 2+ Microcytosis 0 Macrocytosis 2+ PT with INR INR Sodium Potassium Chloride Carbon Dioxide Anion Gap BUN Creatinine Est GFR (CKD-EPI)AfAm Est GFR (CKD-EPI)NonAf Random Glucose Calcium Magnesium Total Bilirubin AST ALT Alkaline Phosphatase Ammonia < 10.00 L Total Protein Albumin Stool Occult Blood Cancelled 02/05/20 02/05/20 02/05/20 07:55 07:55 07:55 WBC 15.6 H RBC 2.31 L Hgb 8.2 L Hct 24.5 L MCV 106.0 H MCH 35.4 H MCHC 33.4 RDW 16.0 H Plt Count 160 MPV 9.1 Absolute Neuts (auto) 12.2 H Neutrophils % 78.4 Neutrophils % (Manual) Band Neutrophils % Lymphocytes % 9.6 Lymphocytes % (Manual) Monocytes % 11.4 H Monocytes % (Manual) Eosinophils % 0.5 Eosinophils % (Manual) Basophils % 0.1 Basophils % (Manual) Myelocytes % (Man) Promyelocytes % (Man) Blast Cells % (Manual) Nucleated RBC % 0 Metamyelocytes Hypochromia Platelet Estimate Polychromasia Poikilocytosis Anisocytosis Microcytosis Macrocytosis PT with INR 20.70 H INR 1.74 H Sodium 136 Potassium 4.3 Chloride 108 H Carbon Dioxide 23 Anion Gap 6 L BUN 21.9 H Creatinine 1.0 Est GFR (CKD-EPI)AfAm 96.40 Est GFR (CKD-EPI)NonAf 83.18 Random Glucose 93 Calcium 7.9 L Magnesium 2.1 Total Bilirubin 11.1 H AST 124 H ALT 69 H Alkaline Phosphatase 110 Ammonia Total Protein 7.4 Albumin 1.7 L Stool Occult Blood HOSPITAL COURSE: Date of Admission:01/24/20 Date of Discharge: 02/05/20 Patient admitted 01/24/20 due to decompensated liver injury and jaundice. Pt was placed on medications as below and overseen by GI service who recommended initiation of prednisolone therapy to be included. Patient had transfer call placed to [facility], however patient not accepted as an inpatient at this time and it was recommended to follow as an outpatient apointment. In addition to his decompensated liver failure patient was noted to have suspected upper GI bleed in setting of supratherapeutic INR. His INR normalized as his acute liver injury resolved. Finally, he was noted to have buttock cellulitis which he was treated and completed Zosyn therapy with resolution of his symptoms. We spoke to Dr. Turner at [facility] who wanted to see the patient in the outpatient setting (his number and information has been provided to the patient). Patient is to continue taking Prednisolone 40mg daily, Lactulose BID, Rifaximin 550mg BID, Aldactone 25mg daily, and folic acid supplementation. He is to see his PMD (Dr. Curran) and understands to call Dr. Turner immediately to schedule an appointment. He is to have an EGD as an outpatient for assessment of esophageal varices. Pt will need follow-up CBC, CMP, and EGD assessment as an outpatient. He is refusing referral to AA clinics or rehab, but understands need of alcohol cessation. Minutes to complete discharge: 33 Discharge Summary Problems reviewed: Yes Reason For Visit: LIVER FAILURE Current Active Problems GUILLERMO (acute kidney injury) (Acute) Alcoholic hepatitis with ascites (Acute) Alcoholic hepatitis without ascites (Acute) Anemia (Acute) Cellulitis (Acute) Chest pain (Acute) Cirrhosis of liver (Acute) DVT prophylaxis (Acute) ETOH abuse (Acute) H/O ETOH abuse (Acute) Hypokalemia (Acute) Jaundice (Acute) Sepsis (Acute) Condition: Fair - Instructions Diet, Activity, Other Instructions: You were seen here for your liver damage. You were placed on several medications and it has helped with your liver, however you will need to see a bread wrapping machine feeder (liver doctor) as an outpatient. We spoke to Dr. Earnest Turner and faxed over your information to their offices. Please schedule and appointment with him at right away as he will need to follow your liver numbers and do an endoscopy MEDICATIONS: Please continue to take Prednisolon 40mg DAILY until your outpatient doctors have seen you Please continue to take Lactulose 20mg up to three times daily until you have 3- 4 bowel movements in a day to prevent ammonia building up Please continue to take Rifaximin 550mg TWICE DAILY for your liver Please take Aldactone 25mg DAILY All medications have been sent to your pharmacy FOLLOW-UP: Please follow-up with Dr. Curran (your main doctor) within 1 week to help arrange specialist appointments and update him on your care Please follow-up with Dr. Earnest Turner to help with your liver, call his office immediately to schedule an appointment. Referrals: Earnest Turner [Other] - 1 Week Omar Curran MD [Primary Care Provider] - 1 Week Disposition: HOME - Home Medications Comprehensive Discharge Medication List: Ambulatory Orders Folic Acid - 1 mg PO DAILY #0 tablet 02/05/20 Lactulose (Oral Use) [Cephulac -] 20 gm PO BID #1 bottle 02/05/20 Pantoprazole Sodium [Protonix -] 40 mg PO DAILY #30 tablet.ec 02/05/20 Prednisolone Oral Solution [Orapred (15 mg/5 ml) Oral Solution -] 40 mg PO DAILY #1 bottle 02/05/20 Spironolactone [Aldactone -] 25 mg PO DAILY #30 tablet 02/05/20 Thiamine HCl [Vitamin B1 -] 200 mg PO DAILY #30 tablet 02/05/20 This patient is new to me today: Yes Date on this admission: 02/05/20 Emergency Visit: Yes ED Registration Date: 01/24/20 Care time: The patient presented to the Emergency Department on the above date and was hospitalized for further evaluation of their emergent condition. Critical Care patient: No - Discharge Referral Referred to [facility] Yes Physician Referral: Bennie Doherty MD (Int Med)
[2020-02-05 09:58] LABS: ANISOCYTOSIS 0; MACROCYTOSIS 0; PLATELET ESTIMATE DECREASED
[2020-02-05] MEDS ORDERED: PT OWN MED DRAWER 7, Y5N ONE (09:59)
[2020-02-05] MEDS ORDERED: SPIRONOLACTONE 25 MG TABLET PO SCH (10:00)
[2020-02-05] MEDS: MULTIVITAMINS (DAILY MVI) TABLET (FP) PO SCH (10:29)
[2020-02-05] MEDS: PANTOPRAZOLE 40 MG TABLET PO SCH (10:29)
[2020-02-05] MEDS: FOLIC ACID 1 MG TABLET (FP) PO SCH (10:30)
[2020-02-05] MEDS: THIAMINE HCL 100 MG TABLET (FP) PO SCH (10:30)
[2020-02-05] MEDS: LACTULOSE 20 GM/30 ML UDC (FOR ORAL USE ONLY) PO SCH (10:30)
[2020-02-05] MEDS: prednisoLONE SODIUM PHOSPHATE 15 MG/5 ML ORAL SOLN BOTTLE PO SCH (10:31)
[2020-02-05] MEDS: HEPARIN NA (PORCINE) 5,000 UNITS/ML 1ML VIAL SQ SCH (10:32)
[2020-02-05] MEDS: COLLAGENASE CLOSTRIDIUM HIST. 30 GRAMS TUBE TP SCH (10:33)
[2020-02-05 10:54] VITALS: BP 146/65; PULSE 78; TEMP 98.2
--- NOTE | 2020-02-05 12:47 | PN ---
Progress Note, Physician History of Present Illness: Pt seen and examined at bedside. He is awake and alert. - Objective Vital Signs: Vital Signs Temperature 98.2 F 02/05/20 10:53 Pulse Rate 78 02/05/20 10:53 Respiratory Rate 02/05/20 10:53 Blood Pressure 146/65 02/05/20 10:53 O2 Sat by Pulse Oximetry (%) 99 02/05/20 10:53 Constitutional: Yes: Calm Eyes: Yes: Sclera Icterus HENT: Yes: Atraumatic Neck: Yes: Supple Cardiovascular: Yes: S1, S2 Respiratory: Yes: CTA Bilaterally Gastrointestinal: Yes: Normal Bowel Sounds, Soft Genitourinary: Yes: WNL Musculoskeletal: Yes: WNL Edema: No Integumentary: Yes: Jaundice Neurological: Yes: Oriented Labs: CBC, BMP 02/05/20 07:55 02/05/20 07:55 INR, PTT INR 1.74 (0.83-1.09) H 02/05/20 07:55 Assessment/Plan Impression 1. liver cirrhosis 2. etoh abuse 3. htn 4. epilepsy 5. ascites 6. [place]is Plan - renal function improving - will need outpt follow up - will need to follow with GI - discussed etoh use and he says that he will not drink anymore - can cont aldactone - monitor for ascites
[2020-02-06] MEDS ORDERED: LACTULOSE 20 GM/30 ML UDC (FOR ORAL USE ONLY) PO SCH (10:00)
== END 2020-02-05 12:33 | disposition home or self-care (01) | DRG 280 ==
LOC: JER 09:26 → JERBED 14:10 → J5S 01-25 16:34 → J4W 01-28 06:59 → J5S 01-28 19:17
PROVIDERS: ATTEND Internal Medicine
PROC: 30233N1 Transfusion of Nonautologous Red Blood Cells into Peripheral Vein, Percutaneous Approach (ICD-10-PCS; principal; 2020-01-31)
DX: K70.11 Alcoholic hepatitis with ascites (principal); K70.30 Alcoholic cirrhosis of liver without ascites; I10 Essential (primary) hypertension; L03.317 Cellulitis of buttock; L73.2 Hidradenitis suppurativa; D63.8 Anemia in other chronic diseases classified elsewhere; R07.89 Other chest pain; N17.9 Acute kidney failure, unspecified; R64 Cachexia; Z68.24 Body mass index [BMI] 24.0-24.9, adult; F10.10 Alcohol abuse, uncomplicated; G40.909 Epilepsy, unspecified, not intractable, without status epilepticus; E87.6 Hypokalemia; R00.0 Tachycardia, unspecified; D72.829 Elevated white blood cell count, unspecified; I95.9 Hypotension, unspecified; A41.89 Other specified sepsis; D50.9 Iron deficiency anemia, unspecified; D68.9 Coagulation defect, unspecified; E56.1 Deficiency of vitamin K
CPT/HCPCS: 36415; 36430; 70450-TC; 71046-TC-FY; 72125-TC; 72192-TC; 74177-TC; 76700-TC; 76705-TC; 76775-TC; 80048; 80053; 80076; 80307; 81003; 82140; 82272; 82436; 82550; 82565; 82607; 82746; 83540; 83550; 83615; 83690; 83735; 84100; 84132; 84133; 84300; 84484; 85025; 85045; 85610; 85730; 86704; 86706; 86707; 86708; 86709; 86803; 86850; 86900; 86901; 86922; 87040; 87070; 87086; 87186; 87205; 87324; 87340; 87449; 90732; 93005; 93010; 97116-GP; 97161-GP; 99285-25; G0009; G0480; J1644; P9047; P9058; Q9967; U0003

== ENCOUNTER 2020-02-11 11:35 | Emergency (ER) | payer OTHER ==
[2020-02-11 11:44] VITALS: BMI 24.2
--- NOTE | 2020-02-11 11:45 | PDOC ---
Rapid Medical Evaluation Time Seen by Provider: 02/11/20 11:39 Medical Evaluation: Allergies Allergy/AdvReac Type Severity Reaction Status Date / Time No Known Allergies Allergy Verified 02/11/20 11:39 02/11/20 11:42 Pt presents for evaluation of abdominal swelling, and jaundice. Discharged on from our facility. States his abdomen has gotten bigger over the weekend, prompting his visit to the ER. Exam: distended abdomen, jaundiced, scleral icterus. 3+ pitting edema Orders: labs, EKG, defer imaging to the provider Pt to proceed to the ER for further evaluation Discharge Disposition - Diagnosis Jaundice, Abdominal distension - Referrals Referrals: Benjamin Madrigal MD [Primary Care Provider] - - Patient Instructions - Post Discharge Activity
--- NOTE | 2020-02-11 12:15 | PDOC ---
History of Present Illness - General Chief Complaint: Edema Stated Complaint: ABD PAIN Time Seen by Provider: 02/11/20 11:39 Past History - Medical History Allergies/Adverse Reactions: Allergies Allergy/AdvReac Type Severity Reaction Status Date / Time No Known Allergies Allergy Verified 02/11/20 11:39 Home Medications: Ambulatory Orders Folic Acid - 1 mg PO DAILY #0 tablet 02/05/20 Lactulose (Oral Use) [Cephulac -] 20 gm PO BID #1 bottle 02/05/20 Pantoprazole Sodium [Protonix -] 40 mg PO DAILY #30 tablet.ec 02/05/20 Prednisolone Oral Solution [Orapred (15 mg/5 ml) Oral Solution -] 40 mg PO DAILY #1 bottle 02/05/20 Spironolactone [Aldactone -] 25 mg PO DAILY #30 tablet 02/05/20 Thiamine HCl [Vitamin B1 -] 200 mg PO DAILY #30 tablet 02/05/20 COPD: No HTN: Yes Liver Disease: Yes Seizures: Yes - Surgical History Orthopedic Surgery: Yes (Back) - Immunization History Immunization Up to Date: Yes - Psycho-Social/Smoking History Smoking Status: Yes Smoking History: Former smoker Have you smoked in the past 12 months: No Number of Cigarettes Smoked Daily: 0 If you are a former smoker, when did you quit?: 10/2012 Information on smoking cessation initiated: No 'Breaking Loose' booklet given: 12/05/12 - Substance Abuse Hx (Audit-C & DAST Scrn) How often the patient has a drink containing alcohol: Never Score: In Men: 4 or > Positive; In Women: 3 or > Positive: 0 Screen Result (Pos requires Nsg. Audit-10AR): Negative In the last yr the pt used illegal drug/Rx for NonMed reason: No Score: Yes response is considered Positive: 0 Screen Result (Positive result requires Nsg. DAST-10): Negative *Physical Exam - Vital Signs Last Vital Signs Temp Pulse Resp BP Pulse Ox 97.2 F L 83 20 112/61 100 02/11/20 11:39 02/11/20 11:39 02/11/20 11:39 02/11/20 11:39 02/11/20 11:39 ED Treatment Course - LABORATORY CBC & Chemistry Diagram: 02/11/20 12:54 02/11/20 12:54 Medical Decision Making - Medical Decision Making 02/11/20 12:15 HPI: 59yo M hx EtOH abuse, alcohol hepatitis w/ascites, cirrhosis, anemia, and recent admission 01/23-02/05/20 for decompensated liver injury and jaundice and suspected UGIB and buttock cellulitis, discharged on Prednisolone 40mg daily, Lactulose BID, Rifaximin 550mg BID, Aldactone 25mg daily, and folic acid supplementation, presents to ER for worsening abdominal distension since d/c. Pt was instructed to f/u with Dr Turner at [facility] for outpatient liver f/u including EGD but pt states he did not go because it's too far. He said he was going to f/u with Dr Madrigal (brigadier) here this week but decided to come her instead. Endorses N/V since d/c as well, able to keep down fluids but vomits most food including pills sometimes. States compliant with pills and hasn't had alcohol since last admission. Endorses diarrhea when takes his lactulose. Denies F/C, abdominal pain, falls, hematemesis, blood in stool, CP, SOB, cough, confusion, N/T, weakness, dizziness, syncope. GI - [facility] - Dr. Turner at [facility] - GI, EGD as outpatient to assess esophageal varices, pt has not seen yet PMD - Dr. Curran ROS: Constitutional: Negative for chills, fever, fatigue, diaphoresis. HENT: Negative for sore throat, rhinorrhea, congestion. Eyes: Negative for visual disturbance. Respiratory: Negative for shortness of breath, cough, and wheezing. Cardiovascular: Negative for chest pain, palpitations, and leg swelling. Gastrointestinal: Positive for ascites, diarhea, nausea, and vomiting. Negative for blood in stool, constipation. Genitourinary: Negative for dysuria, flank pain, and hematuria. Musculoskeletal: Negative for myalgias, back pain, and neck pain. Skin: Negative for rash. Positive for diffuse bruises. Neurological: Negative for light-headedness, dizziness, vertigo, syncope, weakness, numbness and headaches. Psychiatric/Behavioral: Negative for behavioral problems and confusion. PE: Gen: Alert, NAD, comfortable-appearing. HEENT: PERRL, EOMI, MMM, NCAT. No conjunctival pallor. Sclera are icteric. Oropharynx is clear. CV: Regular rate and rhythm. No murmurs, rubs, or gallops. PULM: No resp distress. CTAB, no wheezes, rales, or rhonchi. ABD: soft, NT, distended with +fluid wave, no rebound tenderness or guarding, no CVA tenderness. BACK: No TTP of c/t/l-spine. No step-offs or deformities. MSK: No bony deformities. 2+ pulses in all extremities. NEURO: AAOx3. PERRL. No gross CN deficits. Strength and sensation grossly intact throughout. EXTREMITIES: No cyanosis. No clubbing. 3+ pitting edema b/l. No calf tenderness. PSYCH: Normal mood and thought pattern. Poor insight into medical condition. SKIN: Warm and dry. Normal capillary refill. Multiple diffuse bruises throughout body. +jaundice. MDM: 59yo M hx EtOH abuse, alcohol hepatitis w/ascites, cirrhosis, anemia, and recent admission 01/23-02/05/20 for decompensated liver injury and jaundice and suspected UGIB and buttock cellulitis, discharged on Prednisolone 40mg daily, Lactulose BID, Rifaximin 550mg BID, Aldactone 25mg daily, and folic acid supplementation, presents to ER for worsening abdominal distension, nausea, and vomiting since d/c. Did not f/u as instructed. Hemodynamically stable, afebrile, jaundiced, distended nontender abdomen. Ddx: liver failure, anemia, metabolic derangement. No s/s concerning for SBP, infection, encephalopathy, intox. Pt's poor insight concerning for proper f/u and eval. -EKG -CBC,CMP,Coags,Ammonia,UA -GI Consult -1g Ceftriaxone -Dispo: pending workup and reassessment, likely transfer to liver service Labs reviewed. Anemic, liver failure, coagulopathy. Compared to 02/05/20, Tbili increased to 17.6. K 3.2. -Replete K EKG reviewed: normal sinus rhythm, 71bpm, normal axis, normal intervals, biphasic T waves V3/V4, no ST elevations or depressions, no significant changes from 01/24/20 02/11/20 14:[address] Bañuelos - agrees that pt needs to be at liver center. Will call [facility] for tx. 02/11/20 15:13 [address] case with hepatology Dr Noel - will see pt at [facility]. Discussed case with ER doctor accepting for rapid covid test prior to going to medicine service bed (has bed). Transfer Discharge - Discharge Information Problems reviewed: Yes Clinical Impression/Diagnosis: Jaundice, Abdominal distension, Alcoholic hepatitis with ascites, Cirrhosis of liver Condition: Fair Disposition: TRANSFER ACUTE CARE/OTHER HOSP - Admission No - Follow up/Referral Referrals: Benjamin Madrigal MD [Primary Care Provider] - - Patient Discharge Instructions - Post Discharge Activity - Transfer to Acute Care Facility Receiving Facility Name: [facility]
--- OUTSIDE RECORDS SUMMARY | 2020-02-11 12:49 | XMS ---
:1960 Author Organization [facility] Support Name Relationship Address Phone UE Unavailable Unavailable Unavailable ELIE POSEY FRIEND [address] [place] [address] Re-disclosure Warning The records that you are about to access may contain information from federally- assisted alcohol or drug abuse programs. If such information is present, then the following federally mandated warning applies: This information has been disclosed to you from records protected by federal confidentiality rules (42 CFR part 2). The federal rules prohibit you from making any further disclosure of this information unless further disclosure is expressly permitted by the written consent of the person to whom it pertains or as otherwise permitted by 42 CFR part 2. A general authorization for the release of medical or other information is NOT sufficient for this purpose. The Federal rules restrict any use of the information to criminally investigate or prosecute any alcohol or drug abuse patient.The records that you are about to access may contain highly sensitive health information, the redisclosure of which is protected by Article 27-F of the [facility] Public Health law. If you continue you may haveaccess to information: Regarding HIV / AIDS; Provided by facilities licensed or operated by the [facility] Office of Mental Health; or Provided by the [facility] Office for People With Developmental Disabilities. If such information is present, then the following [facility] mandated warning applies: This information has been disclosed to you from confidential records which are protected by state law. State law prohibits you from making any further disclosure of this information without the specific written consent of the person to whom it pertains, or as otherwise permitted by law. Any unauthorized further disclosure in violation of state law may result in a fine or mcc sentence or both. A general authorization for the release of medical or other information is NOT sufficient authorization for further disclosure. Insurance Providers Payer name Policy type Policy ID Covered Covered libertarian's Policy P sheldon / Coverage libertarian ID relationship to [place] [employer] ormation type [place] MEDICAID [id number] SP [id number] PENDING EXCHANGE SELF PAY SP INSURANCE Problems, Conditions, and Diagnoses Code Display Name Description Problem Type Effective Data Sour ce(s) Dates Z12.11 Encounter for Encounter for Diagnosis 07/14/2018 ARCHIE ([facility] screening for screening for 03:48:59 PM [place] malignant malignant [facility] neoplasm of colon neoplasm of colon [facility]) Z12.5 Encounter for Encounter for Diagnosis 07/14/2018 ARCHIE ([facility] screening for screening for 03:48:59 PM Maynard malignant malignant EST [facility] neoplasm of [facility]) prostate prostate R06.02 Shortness of Shortness of Diagnosis 07/14/2018 ARCHIE ( [facility] breath breath 03:48:59 PM [facility]) R07.9 Chest pain, Chest pain, Diagnosis 07/14/2018 ARCHIE ([place] [facility] unspecified unspecified 03:48:59 PM [facility]) Results ID Date Data Source [id number] 01/24/2020 05:00:00 PM EDT [facility] Name Value Range Interpretation Description Data Sup porting Code Source(s) Document(s ) SARS [facility] coronavirus 2 RNA This lab was ordered by [facility] and reported by [facility]. Procedure
[2020-02-11 13:01] LABS: BASO % 0.4 % (0-2.0); EOS % 2.6 % (0-4.5); HEMATOCRIT 25.3 % (35.4-49); HEMOGLOBIN 8.4 GM/dL (11.7-16.9); LYMPH % 7.2 % (8-40); MCH 35.6 pg (25.7-33.7); MCHC 33.3 g/dl (32.0-35.9); MEAN CELL VOLUME 106.9 fl (80-96); MEAN PLT VOLUME 8.6 fl (7.5-11.1); MONO % 7.6 % (3.8-10.2); NEUT % 82.2 % (42.8-82.8); PLATELET COUNT 205 K/MM3 (134-434); RBC 2.37 M/mm3 (4.00-5.60); RDW 15.9 % (11.9-15.9); WHITE BLOOD COUNT 13.6 K/mm3 (4.0-10.0)
[2020-02-11 13:10] LABS: INR 1.85 (0.83-1.09)
--- NOTE | 2020-02-11 13:31 | EKG ---
Test Reason : Blood Pressure : / mmHG Vent. Rate : 071 BPM Atrial Rate : 071 BPM P-R Int : 174 ms QRS Dur : 090 ms QT Int : 418 ms P-R-T Axes : 052 004 029 degrees QTc Int : 454 ms NORMAL SINUS RHYTHM ABNORMAL ECG WHEN COMPARED WITH ECG OF 24-JAN-2020 10:19, NO SIGNIFICANT CHANGE WAS FOUND Confirmed by GRACIELA ESTEBAN MD ([id number]) on 02/11/2020 1:30:44 PM Referred By: Confirmed By:GRACIELA ESTEBAN MD
[2020-02-11 13:32] LABS: ALBUMIN 1.7 g/dl (3.4-5.0); BLOOD UREA NITROGEN 7.8 mg/dL (7-18); CALCIUM 7.6 mg/dL (8.5-10.1); POTASSIUM 3.2 mmol/L (3.5-5.1); TOT PROT 7.1 g/dl (6.4-8.2)
[2020-02-11 13:39] LABS: BILIRUBIN,TOTAL 17.6 mg/dL (0.2-1)
[2020-02-11] MEDS ORDERED: ONDANSETRON 4 MG/2 ML VIAL IVPUSH ONE (13:57)
[2020-02-11] MEDS ORDERED: POTASSIUM CHLORIDE TABS 20 MEQ TABLET.ER (FP) PO ONE ×2 (13:57→14:17)
[2020-02-11] MEDS ORDERED: CEFOTAXIME SODIUM 2,000 MG in DEXTROSE 5%-WATER - 50 ML IVPB ONE (14:28)
[2020-02-11 14:34] LABS: ANISOCYTOSIS 2+; MACROCYTOSIS 2+; PLATELET ESTIMATE NORMAL; TARGET CELLS 1+; TEAR DROP CELLS 1+
--- NOTE | 2020-02-11 14:36 | PDOC ---
Documentation entered by Jose Antonio Yip SCRIBE, acting as scribe for Shaji Gomez MD. Shaji Gomez MD: This documentation has been prepared by the Phi cee Xhesika, SCRIBE, under my direction and personally reviewed by me in its entirety. I confirm that the documentation accurately reflects all work, treatment, procedures, and medical decision making performed by me. Attending Attestation - Resident Resident Name: Nisha Lorenzo - ED Attending Attestation I have performed the following: I have examined & evaluated the patient, The case was reviewed & discussed with the resident, I agree w/resident's findings & plan, Exceptions are as noted - HPI HPI: 02/11/20 12:32 The patient is a 59y/o male with pmh of HTN, seizure disorder, and alcohol hepatitis w/ascites, cirrhosis, anemia who presents to the ED for worsening abdominal pain and jaundice. Pt was recently admitted here at [facility] 01/23-02/05/20 for decompensated liver failure, jaundice and suspected UGIB, was discharged on Prednisolone 40mg daily, Lactulose BID, Rifaximin 550mg BID, Aldactone 25mg daily, and was advised to f/u with Dr. Turner at [facility] for outpatient liver follow up. Pt states he did not follow up with Dr. Turner because [facility] is too far. Pt states since his d/c he has been endorsing nausea, vomiting and abdominal distension. Pt states he has not had any alcohol in the past week. The patient denies chest pain, shortness of breath, headache and dizziness. Denies fever, chills, cough, diarrhea and constipation. Denies dysuria, frequency, urgency and hematuria. Allergies:NKDA PCP: Omar Culp - Physicial Exam PE: 02/11/20 14:27 Agree with resident exam Bedside sono with no large pockets of ascitis for diag tap - Medical Decision Making 02/11/20 14:33 59yo M with his progressive liver disease, recently DC to f/u with advanced GI presents to the ED with abd distention, worsening jaundice and unable to f/u as outpt. Concern for SBP vs progressive liver failure Unable to do diag tap as no large pockets of ascitis to safely obtain fluid for analysis Will treat empirically with cefotaxime 2G Pt appears very jaundiced today Plan to recheck labs and low threshold to transfer to advanced GI service at [facility] Discharge - Discharge Information Problems reviewed: Yes Clinical Impression/Diagnosis: Jaundice, Abdominal distension, Alcoholic hepatitis with ascites, Cirrhosis of liver Condition: Fair Disposition: TRANSFER ACUTE CARE/OTHER HOSP - Follow up/Referral Referrals: Benjamin Madrigal MD [Primary Care Provider] - - Patient Discharge Instructions - Post Discharge Activity
[2020-02-11] MEDS ORDERED: CEFTRIAXONE 1 GM in DEXTROSE 5%-WATER - 100 ML IVPB ONE (15:15)
[2020-02-11] MEDS ORDERED: CEFTRIAXONE 1 GM/50 ML BAG ONE (15:16)
[2020-02-11 15:28] VITALS: PULSE 73; TEMP 97.8
[2020-02-11 15:31] VITALS: BP 116/71
[2020-02-12 11:47] LABS: MAGNESIUM 1.9 mg/dL (1.8-2.4)
== END 2020-02-11 16:28 | disposition short-term general hospital (02) ==
LOC: JER 11:35
PROC: 3E033NZ Introduction of Analgesics, Hypnotics, Sedatives into Peripheral Vein, Percutaneous Approach (ICD-10-PCS; principal; 2020-02-11)
PROC: 3E033GC Introduction of Other Therapeutic Substance into Peripheral Vein, Percutaneous Approach (ICD-10-PCS; 2020-02-11)
DX: R17 Unspecified jaundice (principal); R14.0 Abdominal distension (gaseous); K70.11 Alcoholic hepatitis with ascites; K74.60 Unspecified cirrhosis of liver
CPT/HCPCS: 36415; 80053; 82140; 83735; 85025; 85610; 93005; 93010; 96365; 96375; 99285-25

== ENCOUNTER 2020-04-12 17:43 | Inpatient (IN) | payer OTHER ==
[2020-04-12 19:32] LABS: BASO % 1.4 % (0-2.0); HEMATOCRIT 21.4 % (35.4-49); HEMOGLOBIN 7.2 GM/dL (11.7-16.9); LYMPH % 13.1 % (8-40); MCH 31.6 pg (25.7-33.7); MCHC 33.9 g/dl (32.0-35.9); MEAN CELL VOLUME 93.4 fl (80-96); MONO % 10.2 % (3.8-10.2); NEUT % 72.3 % (42.8-82.8); PLATELET COUNT 253 K/MM3 (134-434); RBC 2.29 M/mm3 (4.00-5.60); RDW 14.7 % (11.9-15.9); WHITE BLOOD COUNT 9.2 K/mm3 (4.0-10.0)
[2020-04-12 19:39] LABS: INR 1.82 (0.83-1.09); PROTHROMBIN TIME (PATIENT) 21.6 SEC (9.7-13.0)
[2020-04-12 19:45] LABS: POTASSIUM 3.5 mmol/L (3.5-5.1)
[2020-04-12 19:48] LABS: ALBUMIN 1.7 g/dl (3.4-5.0); BLOOD UREA NITROGEN 35.8 mg/dL (7-18); MAGNESIUM 2.2 mg/dL (1.8-2.4)
[2020-04-12 19:51] LABS: CREATININE 3.3 mg/dL (0.55-1.3)
[2020-04-12 19:52] LABS: BILIRUBIN,TOTAL 2.4 mg/dL (0.2-1); TOT PROT 7.8 g/dl (6.4-8.2)
[2020-04-12] MEDS ORDERED: FUROSEMIDE 40 MG/4 ML INJECTABLE VIAL IVPUSH ONE (21:33)
[2020-04-12 21:47] LABS: EPI CELLS >36 /uL (0-25.1); HYALINE CASTS 12 /uL (0-3.1); URINE APPEARANCE CLOUDY; URINE BACTERIA 4 /uL (0-1359); URINE BILIRUBIN NEGATIVE (NEGATIVE); URINE COLOR DK YELLOW; URINE GLUCOSE (UA) NEGATIVE (NEGATIVE); URINE KETONE TRACE (NEGATIVE); URINE LEUK ESTERASE TRACE (NEGATIVE); URINE NITRITE NEGATIVE (NEGATIVE); URINE PROTEIN NEGATIVE (NEGATIVE); URINE RBC 7 /uL (0-23.9); URINE UROBILINOGEN 0.2 mg/dL (0.2-1.0); URINE WBC 15 /uL (0-25.8)
[2020-04-12] MEDS ORDERED: FUROSEMIDE 40 MG/4 ML INJECTABLE VIAL ONE (22:33)
[2020-04-12] MEDS: ALBUMIN HUMAN 25% 100 ML VIAL IVPB SCH ×4 (22:51→23:48)
[2020-04-13 02:01] LABS: BASO % 0.7 % (0-2.0); EOS % 2.7 % (0-4.5); HEMATOCRIT 21.7 % (35.4-49); HEMOGLOBIN 7.3 GM/dL (11.7-16.9); LYMPH % 13.5 % (8-40); MCH 31.4 pg (25.7-33.7); MCHC 33.7 g/dl (32.0-35.9); MEAN PLT VOLUME 8.3 fl (7.5-11.1); MONO % 9.4 % (3.8-10.2); NEUT % 73.7 % (42.8-82.8); PLATELET COUNT 261 K/MM3 (134-434); RBC 2.33 M/mm3 (4.00-5.60)
[2020-04-13] MEDS ORDERED: CEFTRIAXONE 2 GM-D5W BAG 2 GM/50 ML BAG IVPB SCH (10:00)
[2020-04-13] MEDS ORDERED: PANTOPRAZOLE 40 MG TABLET PO SCH (10:00)
[2020-04-13] MEDS ORDERED: PT OWN MED DRAWER 7, Y5N ONE ×2 (10:33→13:52)
[2020-04-13] MEDS ORDERED: DEXTROSE 5%-WATER 100 ML IVPB ONE (10:33)
[2020-04-13] MEDS: SPIRONOLACTONE 25 MG TABLET PO SCH (10:46)
[2020-04-13] MEDS: CEFTRIAXONE 2 GM in DEXTROSE 5%-WATER 100 ML IVPB SCH (10:47)
[2020-04-13] MEDS: LACTULOSE 20 GM/30 ML UDC (FOR ORAL USE ONLY) PO SCH ×3 (10:47→22:42)
[2020-04-13] MEDS: RIFAXIMIN 550 MG TABLET (UD) PO SCH ×3 (10:47→22:42)
[2020-04-13] MEDS: THIAMINE HCL 100 MG TABLET (FP) PO SCH ×2 (10:47)
[2020-04-13] MEDS ORDERED: ALBUMIN HUMAN 25% 12.5 GM/50 ML VIAL IVPB SCH (11:00)
[2020-04-13] MEDS ORDERED: OCTREOTIDE ACETATE 500 MCG/1 ML - 1 ML VIAL SQ SCH (11:00)
[2020-04-13] MEDS ORDERED: PANTOPRAZOLE SODIUM 40 MG in SODIUM CHLORIDE 100 ML IVPB SCH (11:45)
[2020-04-13] MEDS: METOCLOPRAMIDE HCL INJECTION 10 MG/2 ML VIAL IVPB SCH ×2 (12:30→17:18)
[2020-04-13] MEDS: ALBUMIN HUMAN 25% 100 ML VIAL IVPB SCH ×2 (12:30→18:44)
[2020-04-13] MEDS ORDERED: traMADol HCL 50 MG TABLET PO ONE ×2 (13:54→14:12)
[2020-04-13] MEDS: OCTREOTIDE ACETATE 100 MCG/1 ML SQ SCH ×2 (14:13→18:50)
[2020-04-13] MEDS: MIDODRINE HCL 5 MG TABLET PO SCH ×2 (14:14→17:18)
[2020-04-13] MEDS: ONDANSETRON 4 MG/2 ML VIAL IVPB PRN ×2 (17:18→22:43)
[2020-04-13] MEDS: PANTOPRAZOLE SODIUM 40 MG VIAL IVPUSH SCH (22:40)
[2020-04-13] MEDS ORDERED: DEXTROSE 50%-WATER 25 GM/50 ML DISP.SYRIN IVPUSH ONE (23:12)
[2020-04-13] MEDS ORDERED: DEXTROSE 50%-WATER - 25 GM/50 ML VIAL IVPUSH ONE (23:12)
[2020-04-14] MEDS: ALBUMIN HUMAN 25% 100 ML VIAL IVPB SCH (01:06)
[2020-04-14] MEDS: METOCLOPRAMIDE HCL INJECTION 10 MG/2 ML VIAL IVPB SCH ×2 (02:33→09:45)
[2020-04-14] MEDS: OCTREOTIDE ACETATE 100 MCG/1 ML SQ SCH (02:36)
[2020-04-14 08:29] LABS: BASO % 0.4 % (0-2.0); EOS % 1.8 % (0-4.5); HEMATOCRIT 16.2 % (35.4-49); LYMPH % 25.1 % (8-40); MCHC 34.5 g/dl (32.0-35.9); MEAN CELL VOLUME 92.8 fl (80-96); MEAN PLT VOLUME 7.9 fl (7.5-11.1); MONO % 7.5 % (3.8-10.2); NEUT % 65.2 % (42.8-82.8); PLATELET COUNT 206 K/MM3 (134-434); RBC 1.74 M/mm3 (4.00-5.60); RDW 14.5 % (11.9-15.9); WHITE BLOOD COUNT 6.4 K/mm3 (4.0-10.0)
[2020-04-14 08:39] LABS: HEMOGLOBIN 5.6 GM/dL (11.7-16.9)
[2020-04-14 08:43] LABS: INR 2.27 (0.83-1.09); PROTHROMBIN TIME (PATIENT) 26.8 SEC (9.7-13.0)
[2020-04-14 08:46] LABS: ACTIVATED PTT 56.3 SECONDS (25.2-36.5)
[2020-04-14 08:53] LABS: POTASSIUM 4.5 mmol/L (3.5-5.1)
[2020-04-14 09:00] LABS: CALCIUM 8.4 mg/dL (8.5-10.1); MAGNESIUM 2.3 mg/dL (1.8-2.4)
[2020-04-14 09:01] LABS: ALBUMIN 2.5 g/dl (3.4-5.0); BLOOD UREA NITROGEN 38.3 mg/dL (7-18); CREATININE 3.7 mg/dL (0.55-1.3)
[2020-04-14 09:04] LABS: PHOSPHOROUS 7.6 mg/dL (2.5-4.9)
[2020-04-14 09:05] LABS: BILIRUBIN,TOTAL 3.3 mg/dL (0.2-1)
[2020-04-14 09:06] LABS: TOT PROT 6.5 g/dl (6.4-8.2)
[2020-04-14] MEDS ORDERED: PT OWN MED DRAWER 7, Y5N ONE (09:32)
[2020-04-14] MEDS ORDERED: DEXTROSE 5%-WATER 100 ML IVPB ONE (09:32)
[2020-04-14] MEDS: CEFTRIAXONE 2 GM in DEXTROSE 5%-WATER 100 ML IVPB SCH (09:34)
[2020-04-14] MEDS: PANTOPRAZOLE SODIUM 40 MG VIAL IVPUSH SCH (09:35)
[2020-04-14] MEDS: LACTULOSE 20 GM/30 ML UDC (FOR ORAL USE ONLY) PO SCH (10:04)
[2020-04-14] MEDS: SPIRONOLACTONE 25 MG TABLET PO SCH (10:04)
[2020-04-14] MEDS: RIFAXIMIN 550 MG TABLET (UD) PO SCH (10:05)
[2020-04-14] MEDS: THIAMINE HCL 100 MG TABLET (FP) PO SCH (10:05)
[2020-04-14] MEDS: MIDODRINE HCL 5 MG TABLET PO SCH (10:05)
[2020-04-14 11:10] VITALS: BMI 25.8
[2020-04-14 12:07] VITALS: PULSE 70; TEMP 97.7
[2020-04-14 12:46] VITALS: BP 91/72
[2020-04-14] MEDS ORDERED: FUROSEMIDE 40 MG/4 ML INJECTABLE VIAL IVPUSH ONE (13:27)
[2020-04-14] MEDS ORDERED: ALBUMIN HUMAN 25% 100 ML VIAL IVPB SCH (13:30)
[2020-04-14] MEDS ORDERED: ALBUTEROL SO4 0.083% IH SOL 2.5 MG/3 ML VIAL.NEB. NEB ONE (14:46)
== END 2020-04-14 15:21 | disposition short-term general hospital (02) | DRG 280 ==
LOC: JER 17:43 → JERBED 23:54 → J8W 04-13 04:39
PROVIDERS: ADMIT Hospitalist; ATTEND Internal Medicine
DX: K70.31 Alcoholic cirrhosis of liver with ascites (principal); K72.90 Hepatic failure, unspecified without coma; N17.9 Acute kidney failure, unspecified; E87.1 Hypo-osmolality and hyponatremia; I95.9 Hypotension, unspecified; D68.9 Coagulation defect, unspecified; D64.9 Anemia, unspecified; F10.20 Alcohol dependence, uncomplicated; Z87.891 Personal history of nicotine dependence; K70.11 Alcoholic hepatitis with ascites; L73.2 Hidradenitis suppurativa; I10 Essential (primary) hypertension; G40.909 Epilepsy, unspecified, not intractable, without status epilepticus
CPT/HCPCS: 36415; 36430; 71046-TC-FY; 74176-TC; 76775-TC; 80053; 81003; 82140; 82272; 82565; 82962; 83540; 83550; 83735; 83930; 83935; 84100; 84300; 84540; 85025; 85610; 85730; 86850; 86900; 86901; 86922; 87070; 87186; 87205; 93005; 93010; 99285-25; C9803; P9058; U0003